=== PATIENT | male | born 1950 | race African-American/Black ===

== ENCOUNTER → 2019-02-12 11:04 | Outpatient (CLI) | payer MEDICARE, SELFPAY ==
--- NOTE | 2019-02-12 | CA_ITS ---
APPROVED REPORT Exam: Pharmacologic Technologist: checo riggs, Ht: 5 ft 10 in Wt: 230 lbs BSA: 2.21 m2 HR: 60 bpm BP: 136/63 mmHg Rhythm: SINUS BRADYCARDIA,RBBB,PVC,RAD Indications: CP, SOB Medical History Medical History: HTN, Hyperlipidemia Medications: Simvastatin,,,,, Carvedilol,,,,, TAMSULOSIN,,,,, Finasteride,,,,, MiNOxdil,,,,, Allergies: No known drug allergies Cardiac Risk Factors: HTN, Hyperlipidemia Stress Test Details Test: LEXISCAN HR Resting HR: 63 bpm Max Heart Rate (APMHR): 151 bpm Max HR Achieved: 79 bpm Target HR (85% APMHR): 128 bpm % of APMHR: 52 Recovery HR: 75 bpm BP Resting BP: 136.0/63.0 mmHg Max BP: 149.0/51.0 mmHg Recovery BP: 135.0/57.0 mmHg ECG Resting ECG: SINUS BRADYCARDIA,RBBB,PVC,RAD Clinical Exercise duration: 04:15 min Highest Stage Achieved: Stress ECG Conclusion DURING INFUSION OF LEXISCAN PATIENT HAD SOA,MALAISE. NO CHEST PAIN. RARE PVC. NO SIGNIFICANT ST-T CHANGES. UNREMARKABLE LEXISCAN STRESS. MYOVIEW IMAGES REPORTED SEPARATELY. Test Summary REST 03:22 . . 63 . 136/ 63 . . Stage 1 01:00 . . 78 . . . . Stage 2 01:00 . . 73 . 149/ 51 . . Stage 3 01:00 . . 72 . 123/ 45 . . Stage 4 01:00 . . 68 . . . . Stage 4 01:15 . . 69 . 128/ 53 . Stop exercise at 04:15 RECOVERY 01:00 . . 67 . . . . RECOVERY 02:00 . . 76 . . . . RECOVERY 03:00 . . 66 . 135/ 57 . . RECOVERY 04:00 . . 65 . 135/ 57 . . RECOVERY 05:00 . . 65 . 122/ 55 . . RECOVERY 05:35 . . 66 . 138/ 56 . . Electronically signed by : Dennis Hamlin, 02/17/2019 15:00:11
--- NOTE | 2019-02-12 11:10 | CA_ITS ---
[facility] RADIOLOGICAL CONSULTATION Patient Name : Aldo Wills X-RAY # : [id number] Physician: LATHA JARQUIN AGE: 68Y : 1950 00:00:00 ( M ) Exam : CA ECHO DOPPLER COMPLETE ACC # : [id number] Study Date : 02/12/2019 11:18:31 Patient Class : O FINAL REPORT CLINICAL DATA: FINDINGS: TRANSCRIBED REPORT EXAM: Comprehensive 2D, Doppler, and color-flow Echocardiogram Integration Lead: Josseline Mars CRT Ht: 5 ft 9 in Wt: 235lbs BSA: 2.21 BP: 147/64 mmHg Indications: RBBB, [place], CAD, Angina, HTN,SOB, HLD, CP 2D Dimensions LVOT 1.99 cm (M/F) 1.5-2.5 M-Mode Dimensions RVDd 2.97 cm (0.9-2.6) LVDd 6.17 cm (3.5-5.7) LVDs 3.70 cm (3.5-5.7) IVSd 1.64 cm (0.6-1.1) PWd 1.49 cm (0.6-1.1) EF (Teich) 69.70% FS 40.00% EDV (Teich) 191.90 mL ESV (Teich) 58.10 mL LV Diastology E/A Ratio 0.84 Pulm Vein d 0.00 cm/sec Mitral Valve MV A Velocity 102.00 (40-130 cm/s) Electronically signed by : IMPRESSION: Dictated by at Transcribed by at
--- NOTE | 2019-02-12 13:48 | NM_ITS ---
APPROVED REPORT Exam: Nuclear Stress Test Indication: Chest pain, HTN, High cholesterol, Family history Patient Location: Outpatient Stress Tech: Missy FLORES Tech:Natalie DoverMARLEY RT(R)(N) Ht: 5 ft 10 in Wt: 230 lbs HR: 60 bpm BP: 136/63 mmHg BSA: 2.21 m2 BMI: 32.9 History: Chest pain, HTN, High cholesterol, Family history Procedure: Patient received a 0.4 mg of intravenous Lexiscan, resting heart rate 60 bpm, resting blood pressure 136/63 mmHg, with Lexiscan maximum heart rate achived was 79 bpm which is % of the maximum predicted heart rate and blood pressure was 149/51 mmHg. With Lexiscan, patient denied any complaint of chest pain. Cardiac Stress and Resting SPECT Images: Cardiac Stress and Resting SPECT images were obtained using technetium 99m Myoview 32.7 mCi stress and 9.96 mCi at rest. EF 59% Diaphragmatic attenuation inferior wall with a small reversible defect in the infero-apical region suggesting ischemic change Conclusion: Normal EF 59% Diaphragmatic attenuation inferior wall with a small reversible defect in the infero-apical region suggesting ischemic change Electronically signed by : Rizwan Barrera MD 02/13/2019 09:46:11
--- NOTE | 2019-02-12 14:22 | HMH.ITSHM ---
Current Home Medications as stated by this patient Aldo Wills or security representative. [] tamsulosin simvastatin
== END ==
PROVIDERS: PCP Family Medicine; Visit Provider Urology
DX: E78.5 Hyperlipidemia, unspecified; I11.9 Hypertensive heart disease without heart failure; I50.30 Unspecified diastolic (congestive) heart failure; I65.29 Occlusion and stenosis of unspecified carotid artery; I25.10 Atherosclerotic heart disease of native coronary artery without angina pectoris; R07.9 Chest pain, unspecified
CPT/HCPCS: 78452; 93017; 93306; A9502; J2785

== ENCOUNTER → 2019-08-26 10:40 | Outpatient (CLI) | payer MEDICARE, SELFPAY ==
--- NOTE | 2019-08-26 10:41 | CA_ITS ---
APPROVED REPORT Pencil Inspector: BILL Laterality: Bilateral Study Quality: Good Indications: Carotid stenosis Risk Factors Hypertension: Hyperlipidemia Doppler Spectral Velocity Analysis ECA (R) 120.10/9.40 cm/s ECA (L) 123.20/9.40 cm/s dICA (R) 66.60/16.40 cm/s dICA (L) 38.30/9.70 cm/s Monique (R) 73.90/17.60 cm/s Moinque (L) 64.40/15.80 cm/s pICA (R) 74.50/16.40 cm/s pICA (L) 90.50/14.00 cm/s dCCA (R) 74.50/13.30 cm/s dCCA (L) 63.20/9.10 cm/s pCCA (R) 77.70/12.20 cm/s pCCA (L) 79.90/13.00 cm/s ICA/CCA 1.00 Vert (L) 43.10/7.30 cm/s ICA/CCA 1.43 Conclusion Study suggests 20-49% stenosis of the right internal cartoid artery worsened from the 07/30/17 study. Study suggests less than 20% stenosis of the left internal cartoid artery unchanged from the 07/30/17 study. Antegrade flow seen left verterbral artery. Right verterbral artery is non-visualized. Electronically signed by : Rizwan Barrera MD 08/26/2019 19:54:21
== END ==
PROVIDERS: PCP Family Medicine; Visit Provider Urology
DX: I11.0 Hypertensive heart disease with heart failure; I25.10 Atherosclerotic heart disease of native coronary artery without angina pectoris; I45.10 Unspecified right bundle-branch block; I50.32 Chronic diastolic (congestive) heart failure; I65.23 Occlusion and stenosis of bilateral carotid arteries; E78.49 Other hyperlipidemia
CPT/HCPCS: 93880

== ENCOUNTER 2020-01-07 08:20 | Day surgery (SDC) | payer MEDICARE, SELFPAY ==
[2020-01-07] VITALS (13 sets, daily range): BP systolic 108–180; BP diastolic 54–128; PULSE 50–64; RESP 16; TEMP 36.7; O2SAT 94–100; BMI 34.0
--- NOTE | 2020-01-07 | IR_ITS ---
APPROVED REPORT Patient Location: Outpatient Investigations Manager: MARLEY Luong RT (R) PROCEDURES Left heart catheterization Left ventriculogram Selective coronary angiogram INDICATION Abnormal Myoview, Angina pectoris Informed consent was obtained prior to the procedure. COMPLICATIONS None Estimated Blood Loss: less than 10ml TECHNIQUE One percent lidocaine used to anesthetize the right anterior aspect of the wrist. The right radial artery was accessed via the Seldinger technique. A 6 Syrian sheath was placed in the right radial artery. 2.5 mg of verapamil, 800 mcg of nitroglycerin, 1mg Lidocaine and 5000 U Heparin were given through the arterial sheath. The trap catheter was also used to perform left heart catheterization, left ventriculogram and selective coronary angiogram. At the end of the procedure the sheath was removed good hemostasis was achieved using Traclet band, patient was transferred to the postop holding area in stable condition. ANGIOGRAPHIC RESULTS The left main artery Normal The left anterior descending artery Has proximal and mid vessel mild 10% luminal irregularities The circumflex artery Large dominant mild proximal mid vessel 10% luminal irregularities The right coronary artery Nondominant normal The CORMIER ventriculogram reveals Normal 65% The left ventricular end-diastolic pressure 10 mmHg IMPRESSION [id number] coronary artery disease Normal ejection fraction Normal left ventricular end-diastolic pressure PLAN 1. Medical management 2. Valuation of noncardiac chest pain Electronically signed by : Dennis Hamlin, 01/07/2020 11:09:34
[2020-01-07 09:11] LABS: Basophils % 0.2 % (0.1-2.0); Eosinophils # 0.3 K/mm3 (0.0-0.4); Eosinophils % 3.7 % (0.1-12.0); Hematocrit 38.5 % (42.0-52.0); Hemoglobin 13.8 g/dL (14.1-18.0); Lymphocytes # 1.1 K/mm3 (0.7-4.5); Lymphocytes % 15.2 % (10-50); Mean Corpuscular Hemoglobin 31.9 pg (27.0-31.2); Mean Corpuscular Volume 88.7 fl (80-94); Mean Platelet Volume 8.4 fl (7.4-10.4); Monocytes # 0.5 K/mm3 (0.1-1.0); Monocytes % 6.9 % (1.7-9.3); Neutrophils # 5.4 K/mm3 (1.8-7.8); Neutrophils % 73.9 % (37.0-80.0); Platelet Count 144 K/mm3 (142-424); Red Blood Count 4.34 M/mm3 (4.60-6.20); Red Cell Distribution Width 14.3 % (11.5-17.5); White Blood Count 7.4 K/mm3 (4.8-10.8)
[2020-01-07 09:17] LABS: Anion Gap 11.2 mEq/L (5-15); Blood Urea Nitrogen 15 mg/dl (9-20); Calcium 9.5 mg/dl (8.4-10.2); Carbon Dioxide 32 mmol/L (22.0-30.0); Chloride 100 mmol/L (98-107); Creatinine Clearance Estimated 92 mL/min (50-200); Estimated Glomerular Filt Rate 66 ml/min (>60); GFR (African American) 80 ML/MIN (>60); Glucose 113 mg/dl (74-100); Potassium 4.2 mmoL/L (3.5-5.1); Sodium 139 mmol/L (136-145)
[2020-01-07 11:46] LABS: Coronavirus 19 IgG Antibody Negative (Negative); Coronavirus 19 IgM Antibody Negative (Negative)
== END 2020-01-07 14:07 | disposition home or self-care (01) ==
LOC: CATHLAB 08:21
PROVIDERS: PCP Family Medicine; Visit Provider Internal Medicine
DX: I25.118 Atherosclerotic heart disease of native coronary artery with other forms of angina pectoris (principal); R07.9 Chest pain, unspecified; I11.0 Hypertensive heart disease with heart failure; I50.32 Chronic diastolic (congestive) heart failure; Z79.899 Other long term (current) drug therapy; I27.20 Pulmonary hypertension, unspecified; I34.0 Nonrheumatic mitral (valve) insufficiency; E78.5 Hyperlipidemia, unspecified; I65.23 Occlusion and stenosis of bilateral carotid arteries
CPT/HCPCS: 80048; 85025; 86328; 93458; 99152; C1725; C1769; J1644; Q9967

== ENCOUNTER → 2020-07-20 08:37 | Outpatient (CLI) | payer MEDICARE, SELFPAY ==
--- NOTE | 2020-07-20 08:40 | CA_ITS ---
APPROVED REPORT EXAM: Comprehensive 2D, Doppler, and color-flow Echocardiogram Classics Professor: Candelaria Schmidt RVT Ht: 5 ft 9 in Wt: 235lbs BSA: 2.21 BP: 140/60 mmHg Indications: SOA,CAD,RBBB,HTN,HLD,PERICARDIAL EFFUSION 2D Dimensions LVOT 2.07 cm (M/F) 1.5-2.5 LA Volume 40.60 mL LA Volume Index 18.37 mL/m2 (M/F) 16-34 M-Mode Dimensions RVDd 3.24 cm (0.9-2.6) LA Diam 4.85 cm (1.9-4.0) LVDd 5.86 cm (3.5-5.7) Ao Diam 3.11 cm (2.0-3.7) LVDs 3.24 cm (3.5-5.7) IVSd 1.83 cm (0.6-1.1) PWd 1.69 cm (0.6-1.1) EF (Teich) 75.20% FS 44.70% EDV (Teich) 170.50 mL TAPSE 1.60 (<1.7) ESV (Teich) 42.20 mL LV Diastology E Decel Time 203.00 (160-240 msec) E/A Ratio 0.9 MED E' 17.70 (< 7 cm/sec) E'/MED E' Ratio 5.15 (>14) LAT E' 7.60 (<10 cm/sec) E/LAT E' Ratio 11.99 (>14) Mitral Valve MV E Max Fidel. 91.00 (40-130 cm/s) MV A Velocity 96.00 (40-130 cm/s) E/A Ratio 0.95 MV Decel. Time 203.00 (160-240 ms) MV PHT 60.00 ms Pulmonary Valve PV Peak Velocity 124.00 (50-150 cm/s) Tricuspid Valve TR P. Velocity 337.00 cm/s RAP Estimate 10.00 mmHg RVSP 55.50 mmHg Left Ventricle Left atrium is mildly enlarged, left ventricle is normal size, mild concentric left ventricular hypertrophy, visually estimated ejection fraction 55% with no regional wall motion abnormality, grade 1 diastolic dysfunction seen without tissue Doppler evidence of raise left atrial pressure. Right Ventricle Right atrium and right ventricle are mildly enlarged with normal contractility. Aortic Valve Aortic valve is minimally thickened and fibrosed, there is no aortic stenosis, there is trace aortic insufficiency. Mitral Valve Mitral valve grossly normal, there is trace mitral regurgitation. Tricuspid Valve Tricuspid valve grossly normal, there is trace tricuspid regurgitation, calculated right ventricular systolic pressure is 55 mmHg assuming right atrial pressure 10 mmHg. Pulmonic Valve Pulmonic valve is poorly visualized. Great Vessels Aortic root is normal size. Pericardium Small pericardial effusion noted without Doppler evidence of raise intrapericardial pressure. Conclusion 1. Biatrial enlargement, normal left ventricular size, mild concentric left ventricular hypertrophy, visually estimated ejection fraction 55% with no regional wall motion abnormality, grade 1 diastolic dysfunction seen without tissue Doppler evidence of raise left atrial pressure. 2. Mildly enlarged right ventricle with normal contractility. 3. Trace aortic, mild mitral and tricuspid regurgitation, calculated right ventricular systolic pressure is 55 mmHg 4. Small pericardial effusion noted without Doppler evidence of raise intrapericardial pressure. Electronically signed by : Irving So, 07/21/2020 15:06:21
== END ==
PROVIDERS: PCP Family Medicine; Visit Provider Nurse Practitioner Family
DX: I35.1 Nonrheumatic aortic (valve) insufficiency (principal)
CPT/HCPCS: 93306

== ENCOUNTER → 2020-09-22 07:45 | Outpatient (CLI) | payer MEDICARE, SELFPAY ==
--- NOTE | 2020-09-22 07:46 | CA_ITS ---
APPROVED REPORT Header Dock: Candelaria Schmidt RVT Laterality: Bilateral Study Quality: Good Indications: [place] Risk Factors Hypertension: Hyperlipidemia Doppler Spectral Velocity Analysis ECA (R) 135.40/19.70 cm/s ECA (L) 144.50/19.30 cm/s dICA (R) 88.00/27.60 cm/s dICA (L) 71.10/21.70 cm/s Monique (R) 76.40/22.50 cm/s Monique (L) 80.10/21.70 cm/s pICA (R) 52.00/14.80 cm/s pICA (L) 106.90/16.40 cm/s dCCA (R) 82.30/19.50 cm/s dCCA (L) 83.80/15.00 cm/s pCCA (R) 105.90/19.30 cm/s pCCA (L) 104.80/21.70 cm/s Vert (R) 48.80/10.30 cm/s Vert (L) 36.90/9.10 cm/s ICA/CCA 1.07 ICA/CCA 1.28 Findings Study suggests 20-49% stenosis of the right internal cartoid artery. Study suggests 20-49% stenosis of the left internal cartoid artery. Antegrade flow seen bilateral vertebral arteries. Conclusion Study suggests 20-49% stenosis of the right internal cartoid artery. Study suggests 20-49% stenosis of the left internal cartoid artery. Antegrade flow seen bilateral vertebral arteries. Electronically signed by : Rizwan Barrera MD 09/22/2020 15:14:10
--- NOTE | 2020-09-22 07:46 | CA_ITS ---
APPROVED REPORT Manager Documentation: Candelaria Schmidt RVT Study Quality: Good Indications: HTN Risk Factors Hypertension Hyperlipidemia CAD Renal Artery Doppler Origin (R) 176.4/ cm/sec Mid (R) 178.1/ cm/sec Distal (R) 199.3/ cm/sec Renal Aorta Ratio (R) 1.47 Segmental A. (R) 50.4/13.1 cm/sec RI: 0.74 Segmental A. Sup (R) 50.4/13.1 cm/sec Segmental A. Mid (R) 37.4/10.2 cm/sec Segmental A. Inf (R) 22.7/9.1 cm/sec Origin (L) 119.9/ cm/sec Mid (L) 144.7/ cm/sec Distal (L) 135.8/ cm/sec Renal Aorta Ratio (L) 1.07 Segmental A. (L) 51.1/12.1 cm/sec RI: 0.76 Segmental A. Sup (L) 51.1/12.1 cm/sec Segmental A. Mid (L) 45.7/8.1 cm/sec Segmental A. Inf (L) 39.0/9.4 cm/sec Renal Measurements Kidney Size (R) 10.7x7.5 cm Cortical Thickness (R) 1.3 cm Kidney Size (L) 11.2x7.1 cm Cortical Thickness (L) 1.6 cm Findings Study suggests no evidence of stenosis of the bilateral renal arteries. There is a 1.8 X 1.7 cm cyst mid pole right kidney. There is a 2.0 X 1.8 cm hypoechoic solid lesion seen lower pole right kidney, futher testing needed. Conclusion Study suggests no evidence of stenosis of the bilateral renal arteries. There is a 1.8 X 1.7 cm cyst mid pole right kidney. There is a 2.0 X 1.8 cm hypoechoic solid lesion seen upper pole right kidney, futher testing needed. Suggest CT without and with contrast with renal protocol Electronically signed by : Rizwan Barrera MD 09/22/2020 15:18:38
== END ==
PROVIDERS: PCP Family Medicine; Visit Provider Physician Assistant
DX: E78.2 Mixed hyperlipidemia (principal); I25.118 Atherosclerotic heart disease of native coronary artery with other forms of angina pectoris; I27.20 Pulmonary hypertension, unspecified; I34.0 Nonrheumatic mitral (valve) insufficiency; I45.10 Unspecified right bundle-branch block; I50.32 Chronic diastolic (congestive) heart failure; I65.23 Occlusion and stenosis of bilateral carotid arteries; I10 Essential (primary) hypertension
CPT/HCPCS: 93880; 93976

== ENCOUNTER → 2020-10-20 07:57 | Outpatient (CLI) | payer MEDICARE, SELFPAY | PROVIDERS: PCP Family Medicine; Visit Provider Physician Assistant | DX: I70.1 Atherosclerosis of renal artery (principal) | CPT/HCPCS: 93976 ==

== ENCOUNTER → 2022-01-19 09:59 | Outpatient (CLI) | payer MEDICARE, SELFPAY ==
--- NOTE | 2022-01-19 10:00 | CA_ITS ---
APPROVED REPORT EXAM: Comprehensive 2D, Doppler, and color-flow Echocardiogram Coater Carbon Paper: Candelaria Schmidt RVT Ht: 5 ft 9 in Wt: 245lbs BSA: 2.25 BP: 132/66 mmHg Indications: CP,PERICARDIAL EFFUSION,HTN,HLD 2D Dimensions LVOT 2.29 cm (M/F) 1.5-2.5 LA Volume 38.60 mL LA Volume Index 17.15 mL/m2 (M/F) 16-34 M-Mode Dimensions RVDd 2.91 cm (0.9-2.6) LA Diam 5.11 cm (1.9-4.0) LVDd 5.36 cm (3.5-5.7) Ao Diam 3.18 cm (2.0-3.7) LVDs 3.44 cm (3.5-5.7) IVSd 2.06 cm (0.6-1.1) PWd 1.43 cm (0.6-1.1) EF (Teich) 64.90% FS 35.80% EDV (Teich) 138.90 mL TAPSE 2.68 (<1.7) ESV (Teich) 48.80 mL LV Diastology E Decel Time 220.00 (160-240 msec) E/A Ratio 0.8 MED E' 14.60 (< 7 cm/sec) E'/MED E' Ratio 6.05 (>14) LAT E' 7.30 (<10 cm/sec) E/LAT E' Ratio 12.11 (>14) Aortic Valve AO Peak GR. 10.80 mmHg Mitral Valve MV E Max Fidel. 88.00 (40-130 cm/s) MV A Velocity 107.00 (40-130 cm/s) E/A Ratio 0.83 MV Decel. Time 220.00 (160-240 ms) MV PHT 64.00 ms Pulmonary Valve PV Peak Velocity 140.00 (50-150 cm/s) Tricuspid Valve TR P. Velocity 445.00 cm/s RAP Estimate 10.00 mmHg RVSP 89.20 mmHg Left Ventricle Left atrium is mildly enlarged, left ventricle is normal size mild concentric left ventricular hypertrophy, estimated ejection fraction 55 to 60% with no regional wall motion abnormality, grade 1 diastolic dysfunction seen without tissue Doppler evidence of raise left atrial pressure. Right Ventricle Right atrium and right ventricle are mildly enlarged with normal contractility. Aortic Valve Aortic valve is minimally thickened and fibrosed there is no aortic stenosis or aortic insufficiency. Mitral Valve Mitral valve is grossly normal, there is trace mitral regurgitation. Tricuspid Valve Tricuspid grossly normal, there is trace tricuspid regurgitation, tricuspid regurgitation jet velocity is inadequate for calculation of the right ventricular systolic pressure. Pulmonic Valve Pulmonic valve is poorly visualized. Great Vessels Aortic root is normal size. Inferior vena cava is normal size with normal inspiratory collapse Pericardium Small pericardial effusion noted, without Doppler evidence of raised intrapericardial pressure or tamponade physiology. Conclusion 1. Mild biatrial enlargement, normal left ventricular size, mild concentric left ventricular hypertrophy, estimated ejection fraction 55 to 60% with no regional wall motion abnormality, grade 1 diastolic dysfunction seen without tissue Doppler evidence of raise left atrial pressure. 2. Mildly enlarged right ventricle with normal contractility. 3. Trace mitral and tricuspid regurgitation. 4. Small pericardial effusion noted without Doppler evidence of raised intrapericardial pressure or tamponade physiology. 5. Inferior vena cava is normal size with normal inspiratory collapse. Electronically signed by : Irving So MD 01/19/2022 13:37:43
--- NOTE | 2022-01-19 10:00 | CA_ITS ---
FINAL REPORT CLINICAL HISTORY: [place],HTN,HLD FINDINGS: RIGHT CAROTID: CCA PSV 60 cm/sec ICA PSV 99 cm/sec ICA/CCA PSV ratio. 1.64 Comments: Mild plaque disease is noted. LEFTCAROTID: CCA PSV 77 cm/sec ICA PSV 127 cm/sec ICA/CCA PSV ratio 1.65 Comments: Mild plaque disease is noted. Antegrade flow is seen within the vertebral arteries. IMPRESSION: Less than 50% stenosis bilaterally. Mild plaque disease. Reviewed, Interpreted and Dictated by Nathan Ro MD Transcribed by Rosetta Mccarthy Authenticated and [facility]
[2022-01-19 12:17] LABS: Chloride 105 mmol/L (98-107); Potassium 4.2 mmoL/L (3.5-5.1); Sodium 144 mmol/L (136-145)
[2022-01-19 12:20] LABS: Anion Gap 13.2 mEq/L (5-15); Blood Urea Nitrogen 20 mg/dl (9-20); Carbon Dioxide 30 mmol/L (22.0-30.0); Estimated Glomerular Filt Rate 60 ml/min (>60); GFR (African American) 72 ML/MIN (>60)
[2022-01-19 12:21] LABS: Calcium 9.1 mg/dl (8.4-10.2); Glucose 110 mg/dl (74-100)
== END ==
PROVIDERS: PCP Family Medicine; Visit Provider Nurse Practitioner Family
DX: E78.2 Mixed hyperlipidemia (principal); I11.0 Hypertensive heart disease with heart failure; I25.118 Atherosclerotic heart disease of native coronary artery with other forms of angina pectoris; I27.20 Pulmonary hypertension, unspecified; I35.1 Nonrheumatic aortic (valve) insufficiency; I45.10 Unspecified right bundle-branch block; I50.32 Chronic diastolic (congestive) heart failure; I65.23 Occlusion and stenosis of bilateral carotid arteries; N18.30 Chronic kidney disease, stage 3 unspecified; R07.9 Chest pain, unspecified
CPT/HCPCS: 36415; 80048; 93306; 93880

== ENCOUNTER → 2022-05-08 13:53 | Outpatient (CLI) | payer MEDICARE, SELFPAY ==
--- NOTE | 2022-05-08 14:06 | XR_ITS ---
FINAL REPORT CLINICAL HISTORY: dyspnea, soa x 1 month FINDINGS: PA and lateral views of the chest are obtained. There is no prior exam for comparison. There is cardiomegaly. The lungs are clear. There is no pleural effusion, pneumothorax, or acute osseous abnormality. IMPRESSION: No radiographic evidence of acute cardiac or pulmonary disease. Reviewed, Interpreted and Dictated by Jeannette Lopez MD Transcribed by Jimena Mendoza Authenticated and [facility]
== END ==
PROVIDERS: PCP Family Medicine; Visit Provider Physician Assistant
DX: E78.2 Mixed hyperlipidemia (principal); I11.0 Hypertensive heart disease with heart failure; I25.118 Atherosclerotic heart disease of native coronary artery with other forms of angina pectoris; I27.20 Pulmonary hypertension, unspecified; I34.0 Nonrheumatic mitral (valve) insufficiency; I45.10 Unspecified right bundle-branch block; I50.32 Chronic diastolic (congestive) heart failure; I65.23 Occlusion and stenosis of bilateral carotid arteries; R06.00 Dyspnea, unspecified
CPT/HCPCS: 71046

== ENCOUNTER 2022-07-11 17:01 | Inpatient (IN) | payer MEDICARE, SELFPAY ==
--- NOTE | 2022-07-11 17:05 | PC.NURSE ---
patient arrived by ambulance stretcher from [place]
--- NOTE | 2022-07-11 17:20 | EXP.HP ---
History of Present Illness *Admission Date: 07/11/22 *Reason for visit:: Nausea and vomiting *History of present illness: Mr. Wills is a 71-year-old gentleman who initially presented to [place] ER earlier today after waking up this morning with vomiting at 3 AM. Said his stomach has felt like it was full and tight, with worsening distention over the past few days. Denies any blood in his vomit. Last bowel movement yesterday. No fever. Has had some shortness of breath but no cough or chest pain. Shortness of breath has been going on for the past 1 to 2 weeks. On presentation to the ER in [place], labs were obtained and imaging was performed. Patient was noted to have stable labs with baseline kidney function and creatinine 1.2. Imaging of his abdomen showing dilated small bowel loops on KUB, concerning for ileus. CT of abdomen reportedly showing concern for small bowel obstruction. [facility] [place] had no beds, consulted [facility] for transfer for further care. Patient accepted as transfer. On arrival to the floor he states he has never had surgery on his abdomen. Denies any current pain with palpation of his abdomen. Does feel somewhat short of breath and is requiring 2 L oxygen at this time which is new for him. Attempts were made to place NG at [facility] [place], placed twice but intolerant of NG due to gag reflex. NG removed. At this time denies nausea, fever, confusion, belly pain. [facility] Disclaimer: The information contained in this section may have been updated after the patient was seen, as this information can be updated by other users. Medical History (Updated 07/11/22 @ 18:43 by Mejia Jackson MD) Aortic regurgitation BPH (benign prostatic hyperplasia) CAD (coronary artery disease) Carotid artery stenosis Chest pain CHF (congestive heart failure) Chronic kidney disease, stage 3 Diastolic heart failure (~01/02/16) Dyspnea HLD (hyperlipidemia) Hypertensive heart disease Mitral regurgitation Pulmonary HTN Right bundle branch block (~04/18/17) Surgical History (Updated 07/11/22 @ 17:32 by Ching Nieto, MILY) H/O rotator cuff surgery History of cardiac cath History of prostate surgery Social History (Updated 07/11/22 @ 17:32 by Ching Nieto, MILY) Smoking Status: Never smoker alcohol intake: never substance use type: denies use current occupational status: retired Travel in the last 8 weeks: None household members: spouse housing: house current occupational exposures/hazards: No Review of Systems Review of Systems Review of systems (narrative): 14 point review of systems performed, pertinent positives and negatives as per HPI Meds Home Medications and Allergies Home Medications Medication Instructions Recorded Confirmed Type aspirin 81 mg tablet,delayed 81 mg PO DAILY HEART HEALTH 07/19/17 07/11/22 History release (Aspir-Low) tamsulosin 0.4 mg capsule (Flomax) 0.4 mg PO DAILY PRN prostate 07/22/17 07/11/22 History finasteride 5 mg tablet 5 mg PO DAILY urinary 08/26/19 07/11/22 History carvedilol 25 mg tablet 25 mg PO BID BP 07/11/22 07/11/22 History furosemide 20 mg tablet (Lasix) 20 mg PO DAILY CHF 07/11/22 07/11/22 History isosorbide mononitrate 60 mg 60 mg PO DAILY BP 07/11/22 07/11/22 History tablet,extended release 24 hr lisinopril 40 mg tablet 40 mg PO BID BP 07/11/22 07/11/22 History minoxidil 10 mg tablet 10 mg PO BID BPH 07/11/22 07/11/22 History simvastatin 40 mg tablet 40 mg PO HS Cholesterol 07/11/22 07/11/22 History New Prescriptions to Start Prescriptions: Allergies Allergy/AdvReac Type Severity Reaction Status Date / Time No Known Allergies Allergy Verified 05/08/22 13:32 Exam Constitutional Constitutional: no acute distress and obese *Routine HEENT Exam Head: Present normocephalic and atraumatic Eye: Present EOMI and PERRL ENT: Present mucous membranes moist *Routine Neck Exam Neck: Present supple; Absent JVD R
[2022-07-11 17:23] VITALS: BP 162/102; PULSE 99; RESP 20; TEMP 36.9; O2SAT 84; BMI 32.4
[2022-07-11 17:25] VITALS: O2SAT 96
[2022-07-11 17:25] LABS: Coronavirus 19, PCR Not Detected (NotDetected); Influenza A, PCR Not Detected (NotDetected); Influenza B, PCR Not Detected (NotDetected)
--- NOTE | 2022-07-11 17:44 | PC.NURSE ---
spoke with Dr. Maciel about patient
[2022-07-11 17:51] LABS: Basophils % 0.4 % (0.1-2.0); Chloride 105 mmol/L (98-107); Eosinophils % 0.6 % (0.1-12.0); Hematocrit 39.8 % (42.0-52.0); Hemoglobin 13.5 g/dL (14.1-18.0); Lymphocytes # 0.5 K/mm3 (0.7-4.5); Lymphocytes % 7.4 % (10-50); Mean Corpuscular HGB Conc 33.8 g/dL (31.8-35.4); Mean Corpuscular Hemoglobin 30.4 pg (27.0-31.2); Monocytes # 0.5 K/mm3 (0.1-1.0); Monocytes % 6.8 % (1.7-9.3); Neutrophils % 84.8 % (37.0-80.0); Platelet Count 124 K/mm3 (142-424); Red Blood Count 4.42 M/mm3 (4.60-6.20); Red Cell Distribution Width 15.3 % (11.5-17.5); Sodium 142 mmol/L (136-145)
[2022-07-11 17:52] LABS: Potassium 3.9 mmoL/L (3.5-5.1)
[2022-07-11 17:54] LABS: Alanine Aminotransferase 23 U/L (12-78); Albumin Level 4.4 g/dl (3.5-5.0); Albumin/Globulin Ratio 1.4 (1.1-1.8); Alkaline Phosphatase 77 U/L (38-126); Anion Gap 13.9 mEq/L (5-15); Aspartate Amino Transferase 34 U/L (17-59); Bilirubin,Total 1.9 mg/dl (0.2-1.3); Blood Urea Nitrogen 20 mg/dl (9-20); Calcium 8.5 mg/dl (8.4-10.2); Carbon Dioxide 27 mmol/L (22.0-30.0); Creatinine Clearance Estimated 81 mL/min (50-200); Estimated Glomerular Filt Rate 60 ml/min (>60); GFR (African American) 72 ML/MIN (>60); Globulin 3.1 g/dL (1.3-3.2); Glucose 96 mg/dl (74-100); Total Protein,Serum 7.5 g/dl (6.3-8.2)
[2022-07-11 17:55] LABS: Lactic Acid 1.1 mmol/L (0.7-2.1); Magnesium 2.1 mg/dl (1.6-2.3)
[2022-07-11 18:06] LABS: NT Pro Brain Natriuretic Pep. 1260 pg/mL (0-125)
[2022-07-11 18:50] VITALS: PULSE 90
--- NOTE | 2022-07-11 18:51 | ECG_ITS ---
APPROVED REPORT Exam: Resting ECG HR:86 bpm ECG Measurements Heart Rate 86 AXES AK 203 P 63 QRSd 168 QRS -46 QT 381 T 5 QTc 424 Conclusion SINUS RHYTHM LEFT AXIS DEVIATION [QRS AXIS < -30] RIGHT BUNDLE BRANCH BLOCK [120+ ms QRS DURATION, UPRIGHT V1, 40+ ms S IN I/aVL/V4/V5/V6] ABNORMAL ECG UNCONFIRMED REPORT Electronically signed by : Titi Grover MD 07/12/2022 16:54:50
[2022-07-11 19:54] VITALS: BP 151/73; PULSE 87; RESP 20; TEMP 37.1; O2SAT 97
[2022-07-11 20:00] VITALS: O2SAT 97
[2022-07-11 21:37] LABS: Troponin I 0.28 ng/ml (0.00-0.034)
[2022-07-11 22:06] VITALS: PULSE 80
--- NOTE | 2022-07-11 22:39 | PC.NURSE ---
AT 2134 LAB NOTIFIED ME OF CRITICAL TROPONIN OF 0.28. PATY Waller DNP NOTIFIED.
[2022-07-12] VITALS (13 sets, daily range): BP systolic 96–150; BP diastolic 50–75; PULSE 50–78; RESP 17–18; TEMP 36.5–37.7; O2SAT 96–100; BMI 31.3
[2022-07-12 00:16] LABS: Troponin I 0.32 ng/ml (0.00-0.034)
--- NOTE | 2022-07-12 00:17 | PC.NURSE ---
AT OO15 LAB CALLS CRITICAL TROPONIN 0.32. PATY Waller DNP NOTIFIED.
[2022-07-12 01:19] LABS: Troponin I 0.32 ng/ml (0.00-0.034)
--- NOTE | 2022-07-12 01:51 | PC.NURSE ---
AT 0120 LAB CALLED CRITICAL TROPONIN 0.32, NO CHANGE FROM LAST. PATY Hernandez DNP NOTIFIED.
--- NOTE | 2022-07-12 05:19 | PC.NURSE ---
PATIENT HAS BEEN NPO FOR CARDIOLOGY CONSULT SINCE [place].. DENIES PAIN. REPORTS SOA WITH MINIMAL EXERTION. SR/BBB/PACs/PVCs NOTED ON TELE. TROPONINS ELEVATED. TO HAVE ECHOCARDIOGRAM THIS AM. 97% ON 02 AT 2LNC. LOW GRADE TEMP 99.1. MILD EDEMA LOWER LEGS, NON PITTING.
--- NOTE | 2022-07-12 06:00 | CA_ITS ---
APPROVED REPORT EXAM: Comprehensive 2D, Doppler, and color-flow Echocardiogram Visitor Services Representative: Vanda Kwon RDCS Ht: 5 ft 10 in Wt: 219lbs BSA: 2.17 BP: 124/64 mmHg Indications: CHF,HTN,HLP,CAD, PERICARDIAL EFFUSION 2D Dimensions LVOT 2.18 cm (M/F) 1.5-2.5 M-Mode Dimensions RVDd 2.91 cm (0.9-2.6) LA Diam 4.57 cm (1.9-4.0) LVDd 4.20 cm (3.5-5.7) Ao Diam 3.72 cm (2.0-3.7) LVDs 2.33 cm (3.5-5.7) IVSd 1.25 cm (0.6-1.1) PWd 1.07 cm (0.6-1.1) EF (Teich) 76.20% FS 44.50% EDV (Teich) 78.60 mL TAPSE 2.42 (<1.7) ESV (Teich) 18.70 mL LV Diastology E Decel Time 200.00 (160-240 msec) E/A Ratio 1.0 MED E' 8.80 (< 7 cm/sec) E'/MED E' Ratio 10.30 (>14) LAT E' 8.10 (<10 cm/sec) E/LAT E' Ratio 11.19 (>14) Aortic Valve LVOT Max 133.00 (70-110 cm/s) LVOT VTI 28.30 cm AoV Peak Fidel. 170.00 (50-130 cm/s) AO Peak GR. 11.60 mmHg AO Mean GR. 5.70 (<5 mmHg) AO VTI 31.78 (18-25 cm) LUCY (VTI) 3.32 (2.5-4.5 cm2) Mitral Valve MV E Max Fidel. 91.00 (40-130 cm/s) MV A Velocity 93.00 (40-130 cm/s) E/A Ratio 0.97 MV Decel. Time 200.00 (160-240 ms) MV PHT 59.00 ms Left Ventricle Left atrium is mildly enlarged, left ventricle is normal size, mild concentric left ventricular hypertrophy, estimated ejection fraction 55% with no regional wall motion abnormality, diastolic parameters are inconclusive. Right Ventricle Right atrium and right ventricular mildly enlarged with normal contractility. Aortic Valve Aortic valve is minimally thickened and fibrosed there is no aortic stenosis aortic insufficiency. Mitral Valve Mitral valve is grossly normal, there is trace mitral regurgitation. Tricuspid Valve Tricuspid valve grossly normal, there is trace tricuspid regurgitation, tricuspid regurgitation jet velocity is inadequate for calculation of the right ventricular systolic pressure. Pulmonic Valve Pulmonic valve is poorly visualized. Great Vessels Aortic root is normal size. Inferior vena cava is poorly visualized. Pericardium There is small to moderate size pericardial effusion noted without tamponade physiology. Conclusion 1. Biatrial enlargement, normal left ventricular size mild concentric left ventricular hypertrophy, estimated ejection fraction 55% with no regional wall motion abnormality, diastolic parameters are inconclusive. 2. Mildly enlarged right ventricle with normal contractility. 3. Small to moderate-sized pericardial effusion without Doppler evidence of tamponade physiology. 4. Trace mitral and tricuspid regurgitation. 5. Inferior vena cava is poorly visualized. Electronically signed by : Irving So MD 07/13/2022 17:12:41
[2022-07-12 06:27] LABS: Basophils % 0.3 % (0.1-2.0); Eosinophils % 0.6 % (0.1-12.0); Hematocrit 39.4 % (42.0-52.0); Hemoglobin 12.9 g/dL (14.1-18.0); Lymphocytes # 0.5 K/mm3 (0.7-4.5); Lymphocytes % 10.1 % (10-50); Mean Corpuscular HGB Conc 32.7 g/dL (31.8-35.4); Mean Corpuscular Hemoglobin 29.7 pg (27.0-31.2); Mean Corpuscular Volume 90.8 fl (80-94); Monocytes # 0.5 K/mm3 (0.1-1.0); Monocytes % 10.3 % (1.7-9.3); Neutrophils % 78.6 % (37.0-80.0); Platelet Count 112 K/mm3 (142-424); Red Blood Count 4.34 M/mm3 (4.60-6.20); Red Cell Distribution Width 15.3 % (11.5-17.5); White Blood Count 5.1 K/mm3 (4.8-10.8)
[2022-07-12 06:38] LABS: Troponin I 0.22 ng/ml (0.00-0.034)
[2022-07-12 06:47] LABS: Alanine Aminotransferase 18 U/L (12-78); Albumin Level 3.8 g/dl (3.5-5.0); Albumin/Globulin Ratio 1.5 (1.1-1.8); Alkaline Phosphatase 66 U/L (38-126); Anion Gap 12.5 mEq/L (5-15); Aspartate Amino Transferase 31 U/L (17-59); Bilirubin,Total 1.7 mg/dl (0.2-1.3); Blood Urea Nitrogen 20 mg/dl (9-20); Calcium 8.4 mg/dl (8.4-10.2); Carbon Dioxide 27 mmol/L (22.0-30.0); Chloride 104 mmol/L (98-107); Creatinine Clearance Estimated 78 mL/min (50-200); Estimated Glomerular Filt Rate 60 ml/min (>60); GFR (African American) 72 ML/MIN (>60); Globulin 2.6 g/dL (1.3-3.2); Glucose 79 mg/dl (74-100); Potassium 3.5 mmoL/L (3.5-5.1); Sodium 140 mmol/L (136-145); Total Protein,Serum 6.4 g/dl (6.3-8.2)
--- NOTE | 2022-07-12 07:01 | PC.NURSE ---
AT 0637 LAB CALLED WITH CRITICAL TROPONIN 0.22. RESULTS CALLED TO PATY Waller DNP.
--- NOTE | 2022-07-12 07:12 | ECG_ITS ---
APPROVED REPORT Exam: Resting ECG HR:62 bpm ECG Measurements Heart Rate 62 AXES WI 206 P 56 QRSd 174 QRS -47 QT 403 T -15 QTc 408 Conclusion SINUS RHYTHM LEFT AXIS DEVIATION [QRS AXIS < -30] RIGHT BUNDLE BRANCH BLOCK [120+ ms QRS DURATION, UPRIGHT V1, 40+ ms S IN I/aVL/V4/V5/V6] ABNORMAL ECG UNCONFIRMED REPORT Electronically signed by : Titi Grover MD 07/12/2022 16:43:47
--- NOTE | 2022-07-12 07:24 | HMH.PHAINT1 ---
Pharmacy Intervention Comments: Reconciled patient's home medication list using pharmacy fill records and patient interview.
--- NOTE | 2022-07-12 09:35 | EXP.CARD.CON ---
History of Present Illness History of Present Illness Consult date: 07/12/22 Requesting physician: Mejia Jackson Consult reason: shortness of breath Chief complaint: SOA History of present illness: This is a 71-year-old black gentleman who presented to the emergency department at [facility] for shortness of breath, abdominal bloating, nausea and vomiting. The patient states that he has been having progressively worsening shortness of breath and feeling bloated in his abdomen. Then yesterday morning he woke up around 3 AM with nausea and vomiting. He states that his abdominal bloating was worse so he went to the emergency department. [facility] was concerned with a small bowel obstruction but they had no beds available at their facility so the patient was transferred here to [facility]. The patient did have imaging done at [facility] which showed this concern for the small bowel obstruction. The imaging also showed that the patient had a pericardial effusion. The patient did have a CT in May 2022 which showed a moderate pericardial effusion. Repeat echocardiogram will be obtained here. He denies any chest pain or pressure. He states he has been more short of breath the last few weeks and it continues to progressively worsen. He denies any lower extremity edema. He denies any fever, chills. He also denies any orthopnea or PND. When I walked in the room the patient is lying flat. He is on 2 L nasal cannula which is new for him. He reports his nausea and vomiting have resolved. He denies any abdominal pain. [facility] Disclaimer: The information contained in this section may have been updated after the patient was seen, as this information can be updated by other users. Medical History (Updated 07/12/22 @ 09:41 by Marlene Salvador APRN) Aortic regurgitation BPH (benign prostatic hyperplasia) CAD (coronary artery disease) Carotid artery stenosis Chest pain CHF (congestive heart failure) Chronic kidney disease, stage 3 Diastolic heart failure (~01/02/16) Dyspnea Elevated troponin HLD (hyperlipidemia) Hypertensive heart disease Mitral regurgitation Pericardial effusion Pulmonary HTN Right bundle branch block (~04/18/17) Shortness of Breath Surgical History (Updated 07/11/22 @ 17:32 by Ching Nieto, RN) H/O rotator cuff surgery History of cardiac cath History of prostate surgery Social History (Updated 07/11/22 @ 17:32 by Ching Nieto RN) Smoking Status: Never smoker alcohol intake: never substance use type: denies use current occupational status: retired Travel in the last 8 weeks: None household members: spouse housing: house current occupational exposures/hazards: No Review of Systems Review of Systems Review of systems:: pertinent systems reviewed and negative unless documented below Constitutional Constitutional: Reports system reviewed and no additional complaints, except as documented and Reports lethargy Eyes Eyes: Reports system reviewed and no additional complaints, except as documented ENT Ears, Nose, Mouth, and Throat: Reports system reviewed and no additional complaints, except as documented *Cardiovascular Cardiovascular: Reports system reviewed and no additional complaints, except as documented, Denies chest pain, Reports dyspnea and Reports dyspnea on exertion *Respiratory Respiratory: Reports system reviewed and no additional complaints, except as documented, Reports dyspnea and Reports dyspnea on exertion *Gastrointestinal Gastrointestinal: Reports system reviewed and no additional complaints, except as documented, Denies abdominal pain, Reports nausea and Reports vomiting Comments: Abdominal bloating *Genitourinary Genitourinary: Reports system reviewed and no additional complaints, except as documented *Musculoskeletal Musculoskeletal: Reports system reviewed and no additional complaints, except as documented Integumentary/Breasts
--- NOTE | 2022-07-12 13:41 | EXP.ACUTE.PN ---
Subjective *Date: 07/12/22 *Time: 13:41 Interval history: Patient did well overnight. Continues to require 2 L nasal cannula oxygen. No nausea, vomiting. Passing gas. Denies any abdominal pain. Diuresed well with -3 L overnight after 1 dose of 40 mg IV Lasix. Cardiology to see patient today. Questions answered on rounds. Medical Exam Vital signs and Labs for Last 24 Hours: Vital Signs Temp Pulse Pulse Resp BP Pulse Ox 07/12/22 11:03 98.8 F 58 L 17 113/65 97 07/12/22 08:00 70 07/12/22 07:21 98.3 F 64 17 143/75 H 97 07/12/22 04:07 67 07/12/22 04:00 99.1 F 69 18 125/59 L 97 07/12/22 04:14 67 07/12/22 00:07 70 07/12/22 00:00 99.9 F H 78 18 139/52 L 96 07/11/22 22:06 80 07/11/22 20:00 97 07/11/22 19:54 98.8 F 87 20 151/73 H 97 07/11/22 18:50 90 07/11/22 17:25 96 07/11/22 17:23 98.4 F 99 H 20 162/102 H 84 L Intake and Output 07/11/22 07/12/22 07/12/22 23:59 07:59 15:59 Intake Total 120 / 480 360 / 480 Output Total 2100 / 2400 1050 / 2450 1400 / 2450 Balance -2099 / - / -1039 / Intake: Intake, Oral Amount 120 / 480 360 / 480 Output: Output, Urine Amount 2100 / 2400 1050 / 2450 1400 / 2450 Other: Number of Unmeasured Voids 0 0 0 Weight 102.54 kg 99.337 kg 99.3 kg Patient Weight 07/12/22 23:59 Weight 99.3 kg Laboratory Results - last 24 hr 07/11/22 17:25: SARS-CoV-2 (PCR) Not detected, Influenza A Untype (PCR) Not detected, Influenza Type B (PCR) Not detected 07/11/22 17:40: WBC 7.0, RBC 4.42 L, Hgb 13.5 L, Hct 39.8 L, MCV 90.0, MCH 30.4, MCHC 33.8, RDW 15.3, Plt Count 124 L, MPV 9.0, Neut % (Auto) 84.8 H, Lymph % (Auto) 7.4 L, Archuleta % (Auto) 6.8, Eos % (Auto) 0.6, Baso % (Auto) 0.4, Neut # (Auto) 6.0, Lymph # (Auto) 0.5 L, Archuleta # (Auto) 0.5, Eos # (Auto) 0.0, Baso # (Auto) 0.0 07/11/22 17:40: Sodium 142, Potassium 3.9, Chloride 105, Carbon Dioxide 27, Anion Gap 13.9, BUN 20, Creatinine 1.20, Estimated Creat Clear 81, Estimated GFR 60, Est GFR ( Amer) 72, Glucose 96, Calcium 8.5, Magnesium 2.1, Total Bilirubin 1.9 H, AST 34, ALT 23, Alkaline Phosphatase 77, Total Protein 7.5, Albumin 4.4, Globulin 3.1, Albumin/Globulin Ratio 1.4 07/11/22 17:40: Lactate 1.1 07/11/22 17:40: Troponin I 0.10 H, NT-Pro-B Natriuret Pep 1260 H 07/11/22 20:45: Troponin I 0.28 H 07/11/22 23:40: Troponin I 0.32 H 07/12/22 00:50: Troponin I 0.32 H 07/12/22 05:30: Troponin I 0.22 H 07/12/22 05:30: WBC 5.1 D, RBC 4.34 L, Hgb 12.9 L, Hct 39.4 L, MCV 90.8, MCH 29.7, MCHC 32.7, RDW 15.3, Plt Count 112 L, MPV 9.0, Neut % (Auto) 78.6, Lymph % (Auto) 10.1, Archuleta % (Auto) 10.3 H, Eos % (Auto) 0.6, Baso % (Auto) 0.3, Neut # (Auto) 4.0, Lymph # (Auto) 0.5 L, Archuleta # (Auto) 0.5, Eos # (Auto) 0.0, Baso # (Auto) 0.0 07/12/22 05:30: Sodium 140, Potassium 3.5, Chloride 104, Carbon Dioxide 27, Anion Gap 12.5, BUN 20, Creatinine 1.20, Estimated Creat Clear 78, Estimated GFR 60, Est GFR ( Amer) 72, Glucose 79, Calcium 8.4, Magnesium 2.0, Total Bilirubin 1.7 H, AST 31, ALT 18, Alkaline Phosphatase 66, Total Protein 6.4, Albumin 3.8 D, Globulin 2.6, Albumin/Globulin Ratio 1.5 I & O for Labs for Last 24 Hours: Intake & Output 07/09/22 07/10/22 07/11/22 07/12/22 23:59 23:59 23:59 23:59 Intake Total 480 / 480 Output Total 2100 / 2400 2450 / 2450 Balance -2099 / -1969 / Weight 102.54 kg 99.3 kg Constitutional: Present no acute distress and obese Head: Present atraumatic and normocephalic ENT: Present normal exam Neck: Present normal inspection Respiratory: Present normal respiratory effort; Absent accessory muscle use, rhonchi, wheezes or crackles Cardiac: Present Reg Rate and Rhythm GI: Present soft and normal bowel sounds; Absent distention or tenderness Extremities: Present normal inspection, full ROM and edema (trace BLE); Absent tenderness Skin: Present intact; Absent erythema Neuro: Present
[2022-07-12 18:08] LABS: Chloride 99 mmol/L (98-107)
[2022-07-12 18:09] LABS: Potassium 3.5 mmoL/L (3.5-5.1); Sodium 138 mmol/L (136-145)
[2022-07-12 18:11] LABS: Blood Urea Nitrogen 25 mg/dl (9-20); Creatinine Clearance Estimated 52 mL/min (50-200); Estimated Glomerular Filt Rate 37 ml/min (>60); GFR (African American) 45 ML/MIN (>60)
[2022-07-12 18:12] LABS: Anion Gap 11.5 mEq/L (5-15); Calcium 8.4 mg/dl (8.4-10.2); Carbon Dioxide 31 mmol/L (22.0-30.0); Glucose 104 mg/dl (74-100)
--- NOTE | 2022-07-12 18:41 | PC.NURSE ---
Pt is alert and oriented x4. He's been weaned to 1L NC. He was up to the chair for several hours this afternoon and tolerated well. He's ambulates to the bathroom independently. BBB on telemetry. He's denied any complaints thus far. He is currently resting in bed with his eyes closed. Bed is locked and in the lowest position, call light is within reach.
--- NOTE | 2022-07-12 20:03 | PC.NURSE ---
hospitalist made aware of bp. stated to give lisinopril and hold carvedilol
[2022-07-13] VITALS: PULSE 50
[2022-07-13 04:00] VITALS: BP 151/61; PULSE 55; PULSE 67; RESP 18; TEMP 36.8; O2SAT 91; BMI 30.9
[2022-07-13 06:17] LABS: Alanine Aminotransferase 19 U/L (12-78); Albumin Level 3.8 g/dl (3.5-5.0); Albumin/Globulin Ratio 1.4 (1.1-1.8); Alkaline Phosphatase 65 U/L (38-126); Anion Gap 9.4 mEq/L (5-15); Aspartate Amino Transferase 34 U/L (17-59); Bilirubin,Total 1.2 mg/dl (0.2-1.3); Blood Urea Nitrogen 26 mg/dl (9-20); Calcium 8.6 mg/dl (8.4-10.2); Carbon Dioxide 30 mmol/L (22.0-30.0); Chloride 101 mmol/L (98-107); Creatinine Clearance Estimated 66 mL/min (50-200); Estimated Glomerular Filt Rate 50 ml/min (>60); GFR (African American) 60 ML/MIN (>60); Globulin 2.8 g/dL (1.3-3.2); Glucose 84 mg/dl (74-100); Potassium 3.4 mmoL/L (3.5-5.1); Sodium 137 mmol/L (136-145); Total Protein,Serum 6.6 g/dl (6.3-8.2)
[2022-07-13 07:51] VITALS: BP 134/60; PULSE 77; RESP 18; TEMP 37.2; O2SAT 92
[2022-07-13 08:00] VITALS: BP 134/60; PULSE 70; PULSE 77; RESP 18; TEMP 37.2; O2SAT 92
--- NOTE | 2022-07-13 09:37 | EXP.CARD.PN ---
Subjective Subjective Date: 07/13/22 Time: 08:30 Principal diagnosis: diastolic dysfunction, diastolic chf Interval history: This is a 71-year-old black gentleman who presented to the emergency department at [place] for shortness of breath, abdominal bloating, nausea and vomiting. His shortness of breath has been progressively worsening over the last few weeks as well as feeling bloated in his abdomen. He states that he woke up on the morning of admission around 3 AM with nausea and vomiting. He went to the emergency department at [place] and they were concerned with a small bowel obstruction. They did not have any beds available at their facility so the patient was transferred here to [facility]. The patient was found to have a pericardial effusion and he had an elevated BNP as well as troponin. The patient has been diuresed with IV Lasix. He had a -1905 fluid balance overnight last night. This morning he states that he is feeling much better. His shortness of breath is significantly improved. He denies any lower extremity edema. He denies any abdominal pain. He denies any fever, chills, nausea, vomiting, diarrhea, PND or orthopnea. The patient is currently on room air and states that he is breathing well. Exam Data for Last 24 hours Vital signs and Labs for Last 24 Hours: Temp Pulse Resp BP Pulse Ox 98.9 F 77 18 134/60 92 L 07/13/22 08:00 07/13/22 08:00 07/13/22 08:00 07/13/22 08:00 07/13/22 08:00 Laboratory Results - last 24 hr 07/12/22 17:53: Sodium 138, Potassium 3.5, Chloride 99, Carbon Dioxide 31 H, Anion Gap 11.5, BUN 25 H, Creatinine 1.80 H D, Estimated Creat Clear 52, Estimated GFR 37 L, Est GFR ( Amer) 45 L D, Glucose 104 H D, Calcium 8.4 07/13/22 05:32: Sodium 137, Potassium 3.4 L, Chloride 101, Carbon Dioxide 30, Anion Gap 9.4, BUN 26 H, Creatinine 1.40 H D, Estimated Creat Clear 66, Estimated GFR 50 L, Est GFR ( Amer) 60 D, Glucose 84, Calcium 8.6, Total Bilirubin 1.2, AST 34, ALT 19, Alkaline Phosphatase 65, Total Protein 6.6, Albumin 3.8, Globulin 2.8, Albumin/Globulin Ratio 1.4 I & O for Last 24 hours: Intake & Output 07/10/22 07/11/22 07/12/22 07/13/22 23:59 23:59 23:59 23:59 Intake Total 1020 / 1170 510 / 510 Output Total 2100 / 2400 2925 / 2925 0 / 0 Balance -2100 / -2280 -1905 / -1755 510 / 510 Weight 226 lb 1 oz 218 lb 14.704 oz 216 lb 9 oz Narrative: Telemetry strip shows sinus rhythm with a rate of 65 bpm. Constitutional Constitutional: no acute distress and obese *Routine HEENT Exam Head: Present normocephalic and atraumatic ENT: Present mucous membranes moist *Routine Neck Exam Neck: Present supple, full ROM and normal carotid upstroke; Absent JVD, carotid bruit or lymphadenopathy *Routine Respiratory Exam Respiratory: Present CTA bilaterally, normal respiratory effort, able to speak in complete sentences and symmetric chest movement *Routine Cardiovascular Exam Cardiovascular: Present RRR, Normal S1 and Normal S2; Absent murmur or gallop *Routine Abdominal Exam Abdominal: Present soft and normoactive bowel sounds; Absent tenderness, distended or organomegaly *Routine Extremities Exam Extremities: Present full ROM, pulses intact and normal capillary refill; Absent cyanosis, clubbing or edema *Routine Skin Exam Skin: Present intact and warm; Absent erythema *Routine Neurological Exam Neurological: Present alert, oriented X3 and CN II-XII intact; Absent sensory deficit or motor deficit Routine Psychiatric Exam Psychiatric: Present normal affect Progress Note: A&P Assessment and plan (1) Acute on chronic heart failure with preserved ejection fraction (HFpEF): Status: Acute (2) Diastolic dysfunction: Status: Acute (3) Pericardial effusion: Status: Acute (4) Dyspnea: Status: Acute (5) Chronic kidney disease, stage 3: Status: Chronic (6) HLD (hyperlipidemia): Status: Chronic (7) CAD (coronary artery
[2022-07-13 11:38] VITALS: BP 119/56; PULSE 49; RESP 16; TEMP 36.8; O2SAT 92
[2022-07-13 12:00] VITALS: PULSE 50
--- NOTE | 2022-07-13 14:04 | EXP.DC.SUM ---
General Admission date:: 07/11/22 Discharge date: 07/13/22 HPI HPI HPI: Mr. Wills is a 71-year-old gentleman who initially presented to [place] ER earlier today after waking up this morning with vomiting at 3 AM. Said his stomach has felt like it was full and tight, with worsening distention over the past few days. Denies any blood in his vomit. Last bowel movement yesterday. No fever. Has had some shortness of breath but no cough or chest pain. Shortness of breath has been going on for the past 1 to 2 weeks. On presentation to the ER in [place], labs were obtained and imaging was performed. Patient was noted to have stable labs with baseline kidney function and creatinine 1.2. Imaging of his abdomen showing dilated small bowel loops on KUB, concerning for ileus. CT of abdomen reportedly showing concern for small bowel obstruction. [place] had no beds, consulted [facility] for transfer for further care. Patient accepted as transfer. On arrival to the floor he states he has never had surgery on his abdomen. Denies any current pain with palpation of his abdomen. Does feel somewhat short of breath and is requiring 2 L oxygen at this time which is new for him. Attempts were made to place NG at [place], placed twice but intolerant of NG due to gag reflex. NG removed. At this time denies nausea, fever, confusion, belly pain. Hospital Course Hospital Course Hospital Course: Patient was admitted for NSTEMI. Cardiology was consulted. Noted to have pericardial effusion Without tamponade.. This is most likely secondary to his minoxidil. His minoxidil has been stopped. Hypervolemic and diuresed. -Continue home lisinopril 40 mg twice daily, long-acting nitrate -Increase carvedilol to 37.5 mg twice daily Discharge with cardiology follow-up Exam Data for Last 24 hours Vital signs and Labs for Last 24 Hours: Temp Pulse Resp BP Pulse Ox 98.3 F 50 L 16 119/56 L 92 L 07/13/22 11:38 07/13/22 12:00 07/13/22 11:38 07/13/22 11:38 07/13/22 11:38 Laboratory Results - last 24 hr 07/12/22 17:53: Sodium 138, Potassium 3.5, Chloride 99, Carbon Dioxide 31 H, Anion Gap 11.5, BUN 25 H, Creatinine 1.80 H D, Estimated Creat Clear 52, Estimated GFR 37 L, Est GFR ( Amer) 45 L D, Glucose 104 H D, Calcium 8.4 07/13/22 05:32: Sodium 137, Potassium 3.4 L, Chloride 101, Carbon Dioxide 30, Anion Gap 9.4, BUN 26 H, Creatinine 1.40 H D, Estimated Creat Clear 66, Estimated GFR 50 L, Est GFR ( Amer) 60 D, Glucose 84, Calcium 8.6, Total Bilirubin 1.2, AST 34, ALT 19, Alkaline Phosphatase 65, Total Protein 6.6, Albumin 3.8, Globulin 2.8, Albumin/Globulin Ratio 1.4 I & O for Last 24 hours: Intake & Output 07/10/22 07/11/22 07/12/22 07/13/22 23:59 23:59 23:59 23:59 Intake Total 1020 / 1170 510 / 510 Output Total 2100 / 2400 2925 / 2925 0 / 0 Balance -2100 / -2280 -1905 / -1755 510 / 510 Weight 102.54 kg 99.3 kg 98.231 kg Constitutional Constitutional: no acute distress and obese *Routine HEENT Exam Head: Present normocephalic Eye: Present EOMI and PERRL ENT: Present mucous membranes moist *Routine Neck Exam Neck: Present supple; Absent lymphadenopathy *Routine Respiratory Exam Respiratory: Present CTA bilaterally *Routine Cardiovascular Exam Cardiovascular: Present RRR *Routine Abdominal Exam Abdominal: Present soft and normoactive bowel sounds; Absent tenderness *Routine Extremities Exam Extremities: Absent cyanosis, clubbing or edema *Routine Skin Exam Skin: Present warm; Absent rash *Routine Neurological Exam Neurological: Present alert and oriented X3 Results Data Completed and Pending Labs on day of discharge: Labs from last 24 hours 07/13/22 07/12/22 05:32 17:53 Sodium 137 138 Potassium 3.4 L 3.5 Chloride 101 99 Carbon Dioxide 30 31 H Anion Gap 9.4 11.5 BUN 26 H 25 H Creatinine 1.40 H D 1.80 H D Estimated Creat Clear 66 52 Estimated GFR 50 L 37 L Es
--- NOTE | 2022-07-13 14:30 | HMH.PHAINT1 ---
Pharmacy Intervention Comments: DISCHARGE MEDICATION COUNSELING PROVIDED. DISCUSSED STOPPING THE MINOXIDIL AND INCREASING CARVEDILOL FROM 25 MG TWICE DAILY TO 37.5 MG TWICE DAILY. EXPLAINED THAT THE PATIENT COULD TAKE ONE AND A HALF TABLETS OF THE 25 MG TWICE DAILY TO GET THE NEW 37.5 MG STRENGTH. PATIENT ASKED IF DR Juan Pablo LERNER WOULD SEND IN A REFILL FOR HIS FINASTERIDE. I ADVISED MR LOPEZ THAT I WOULD CALL AND ASK DR Juan Pablo LERNER ABOUT THE REFILL. I SPOKE WITH DR Juan Pablo LERNER REGARDING THE FINASTERIDE AND HE APPROVED A REFILL. PATIENT VERBALIZED NO FURTHER QUESTIONS AT THIS TIME.
--- NOTE | 2022-07-17 13:29 | CARE MANAGER ---
Patient returned phone call regarding hospital discharge. He states he is doing well. He denies any questions or concerns. He picked up his medication and is aware of his follow up appointment. MILY De La Torre
== END 2022-07-13 14:57 | disposition home or self-care (01) | DRG 280 ==
PROVIDERS: Nurse Practitioner Family; Admitting Provider Internal Medicine Adolescent Medicine; PCP Family Medicine; Visit Provider Internal Medicine Adolescent Medicine
DX: I21.4 Non-ST elevation (NSTEMI) myocardial infarction (principal); I50.33 Acute on chronic diastolic (congestive) heart failure; I31.39 Other pericardial effusion (noninflammatory); N18.30 Chronic kidney disease, stage 3 unspecified; E78.2 Mixed hyperlipidemia; I25.118 Atherosclerotic heart disease of native coronary artery with other forms of angina pectoris; N40.0 Benign prostatic hyperplasia without lower urinary tract symptoms; I27.20 Pulmonary hypertension, unspecified; E66.9 Obesity, unspecified; Z68.31 Body mass index [BMI] 31.0-31.9, adult; I13.10 Hypertensive heart and chronic kidney disease without heart failure, with stage 1 through stage 4 chronic kidney disease, or unspecified chronic kidney disease
CPT/HCPCS: 36415; 80048; 80053; 83605; 83735; 83880; 84484; 85025; 93005; 93306; C9803; U0003; U0005

== ENCOUNTER → 2022-09-19 10:54 | Outpatient (CLI) | payer MEDICARE, SELFPAY | PROVIDERS: PCP Family Medicine; Visit Provider Physician Assistant | DX: E78.2 Mixed hyperlipidemia (principal); I11.0 Hypertensive heart disease with heart failure; I25.118 Atherosclerotic heart disease of native coronary artery with other forms of angina pectoris; I27.20 Pulmonary hypertension, unspecified; I34.0 Nonrheumatic mitral (valve) insufficiency; I45.10 Unspecified right bundle-branch block; I50.32 Chronic diastolic (congestive) heart failure; I65.23 Occlusion and stenosis of bilateral carotid arteries | CPT/HCPCS: 93306 ==

== ENCOUNTER → 2022-12-26 07:31 | Outpatient (CLI) | payer MEDICARE, SELFPAY ==
--- NOTE | 2022-12-26 07:36 | NM_ITS ---
APPROVED REPORT Exam: Nuclear Stress Test Indication: chest pain..high BP..high cholesterol..family hx Patient Location: Outpatient Stress Tech: Kami Mcdermott [place] Tech:Natalie Dover DELFINOAkil RT(R)(N) Ht: 5 ft 10 in Wt: 220 lbs HR: 59 bpm BP: 191/96 mmHg BSA: 2.17 m2 Rhythm: NSR TID: 1.10 BMI: 31.5 History: chest pain..high BP..high cholesterol..family hx Procedure: Patient received 0.4 mg of intravenous Lexiscan, resting heart rate 59 bpm, resting blood pressure 191/96 mmHg, with Lexiscan maximum heart rate achieved was 78 bpm which is 85 % of the maximum predicted heart rate and blood pressure was 191/96 mmHg. With Lexiscan, patient denied any complaint of chest pain. Cardiac Stress and Resting SPECT Images: Cardiac Stress and Resting SPECT images were obtained using technetium 99m Myoview 30.5 mCi stress and 10.60 mCi at rest. Resting and stress imaging in both supine and prone positions demonstrate a large sized, severe, fixed perfusion defect in the inferior LV wall, from the base and extending towards the distal inferoapical region. There is also a medium sized, moderate, partially reversible perfusion defect in the basal lateral LV wall. Gated imaging demonstrates mild reduction in global LV systolic function. There is moderate hypokinesis of the inferior LV wall, as well a in the basal lateral LV wall. LVEF is calculated at 41%. Conclusion: Large sized, severe, fixed perfusion defect in the inferior LV wall, from the base and extending towards the distal inferoapical region. There is also a medium sized, moderate, partially reversible perfusion defect in the basal lateral LV wall. Findings are suggestive of partial reversible ischemia. Gated imaging demonstrates mild reduction in global LV systolic function. There is moderate hypokinesis of the inferior LV wall, as well a in the basal lateral LV wall. LVEF is calculated at 41%. Electronically signed by : Gricelda Ferrer, 12/27/2022 00:54:25
--- NOTE | 2022-12-26 10:05 | CA_ITS ---
APPROVED REPORT Exam: Pharmacologic Technologist: Kami Mcdermott Ht: 5 ft 10 in Wt: 227 lbs BSA: 2.20 m2 HR: 58 bpm BP: 191/96 mmHg Rhythm: NSR Indications: Shortness of Breath Medical History Medications: Lisinopril,,,,, Aspirin,,,,, Simvastatin,,,,, Flomax,,,,, Carvedilol,,,,, MiraLAX,,,,, Finasteride,,,,, Stress Test Details Test: LEXISCAN HR Resting HR: 59 bpm Max Heart Rate (APMHR): 147 bpm Max HR Achieved: 78 bpm Target HR (85% APMHR): 125 bpm % of APMHR: 53 Recovery HR: 64 bpm BP Resting BP: 191.0/96.0 mmHg Max BP: 191.0/96.0 mmHg Recovery BP: 139.0/70.0 mmHg ECG Resting ECG: Sinus bradycardia, Right bundle branch block, PVCs. Stress ECG: No ST changes ST Change: PACs, PVCs Clinical Exercise duration: 04:02 min Highest Stage Achieved: Stress ECG Conclusion Symptoms: Mild, brief shortness of air. No chest pain. Arrhythmias/Ectopy: Occasional PVC, rare PAC. ST-T Changes: No significant changes. Conclusion: Unremarkable Lexiscan stress. Myoview images reported separately. Test Summary REST . . . . . . . Resting REST 06:41 . . 59 . 191/ 96 . . Stage 1 01:00 . . 67 . . . . Stage 2 01:00 . . 72 . . . . Stage 3 01:00 . . 72 . 152/ 62 . . Stage 4 01:00 . . 67 . 146/ 73 . . Stage 4 01:02 . . 68 . 146/ 73 . Stop exercise at 04:02 RECOVERY 01:00 . . 66 . 143/ 66 . . RECOVERY 02:00 . . 68 . 143/ 66 . . RECOVERY 03:00 . . 67 . 138/ 73 . . RECOVERY 04:00 . . 65 . 138/ 73 . . RECOVERY 04:39 . . 62 . 139/ 70 . . Electronically signed by : Gricelda Ferrer, 12/27/2022 00:49:53
== END ==
PROVIDERS: PCP Family Medicine; Visit Provider Nurse Practitioner
DX: E78.5 Hyperlipidemia, unspecified (principal); I27.20 Pulmonary hypertension, unspecified; I34.0 Nonrheumatic mitral (valve) insufficiency; I45.10 Unspecified right bundle-branch block; I50.30 Unspecified diastolic (congestive) heart failure; I65.29 Occlusion and stenosis of unspecified carotid artery; R06.02 Shortness of breath; I20.8 Other forms of angina pectoris; I11.0 Hypertensive heart disease with heart failure
CPT/HCPCS: 78452; 93017; A9502; J2785

== ENCOUNTER 2023-01-14 07:41 | Day surgery (SDC) | payer MEDICARE, SELFPAY ==
[2023-01-14] VITALS (11 sets, daily range): BP systolic 102–157; BP diastolic 61–79; PULSE 52–78; RESP 16–20; TEMP 36.6; O2SAT 95–98; BMI 32.0
--- NOTE | 2023-01-14 07:14 | IR_ITS ---
APPROVED REPORT Patient Location: Outpatient Fire Captain Marine: MARLEY Randall RT (R) PROCEDURES Left heart catheterization Left ventriculogram Selective coronary angiogram INDICATION Abnormal Myoview, Angina pectoris Informed consent was obtained prior to the procedure. COMPLICATIONS NONE Estimated Blood Loss: LESS THAN 10 ML TECHNIQUE One percent lidocaine used to anesthetize the right anterior aspect of the wrist. The right radial artery was accessed via the Seldinger technique. A 6 Persian sheath was placed in the right radial artery. 2.5 mg of Verapamil, 800 mcg of nitroglycerin, 1mg Lidocaine and 5000 U Heparin were given through the arterial sheath. The papa catheter was also used to perform left heart catheterization, left ventriculogram and selective coronary angiogram. At the end of the procedure the sheath was removed good hemostasis was achieved using Traclet band, patient was transferred to the postop holding area in stable condition. ANGIOGRAPHIC RESULTS The left main artery Normal The left anterior descending artery Large wraps the apex and has diffuse proximal mid vessel 10% luminal irregularities The circumflex artery Codominant mild 10% luminal irregularities The right coronary artery Codominant with mild 10% luminal irregularities The CORMIER ventriculogram reveals Normal 65% The left ventricular end-diastolic pressure 10 to 15 mmHg IMPRESSION Mild nonflow limiting coronary disease Normal ejection fraction Normal left ventricular end-diastolic pressure PLAN 1. Medical management Electronically signed by : Dennis Hamlin MD 01/14/2023 10:24:03
[2023-01-14 08:34] LABS: Basophils % 0.2 % (0.1-2.0); Eosinophils # 0.4 K/mm3 (0.0-0.4); Eosinophils % 5.5 % (0.1-12.0); Hematocrit 46.9 % (42.0-52.0); Hemoglobin 15.1 g/dL (14.1-18.0); Lymphocytes # 1.2 K/mm3 (0.7-4.5); Lymphocytes % 15.1 % (10-50); Mean Corpuscular HGB Conc 32.2 g/dL (31.8-35.4); Mean Corpuscular Hemoglobin 30.4 pg (27.0-31.2); Mean Corpuscular Volume 94.3 fl (80-94); Mean Platelet Volume 9.5 fl (7.4-10.4); Monocytes # 0.4 K/mm3 (0.1-1.0); Monocytes % 5.6 % (1.7-9.3); Neutrophils # 5.8 K/mm3 (1.8-7.8); Neutrophils % 73.6 % (37.0-80.0); Platelet Count 142 K/mm3 (142-424); Red Blood Count 4.98 M/mm3 (4.60-6.20); Red Cell Distribution Width 13.8 % (11.5-17.5); White Blood Count 7.8 K/mm3 (4.8-10.8)
[2023-01-14 08:38] LABS: Chloride 102 mmol/L (98-107); Potassium 3.9 mmoL/L (3.5-5.1); Sodium 141 mmol/L (136-145)
[2023-01-14 08:41] LABS: Anion Gap 9.9 mEq/L (5-15); Blood Urea Nitrogen 20 mg/dl (9-20); Calcium 9.5 mg/dl (8.4-10.2); Carbon Dioxide 33 mmol/L (22.0-30.0); Creatinine Clearance Estimated 72 mL/min (50-200); Estimated Glomerular Filt Rate 54 ml/min (>60); GFR (African American) 65 ML/MIN (>60); Glucose 124 mg/dl (74-100)
== END 2023-01-14 13:19 | disposition home or self-care (01) ==
PROVIDERS: PCP Family Medicine; Visit Provider Internal Medicine
DX: E78.5 Hyperlipidemia, unspecified (principal); I11.9 Hypertensive heart disease without heart failure; I25.118 Atherosclerotic heart disease of native coronary artery with other forms of angina pectoris; R94.39 Abnormal result of other cardiovascular function study; Z79.899 Other long term (current) drug therapy; N18.30 Chronic kidney disease, stage 3 unspecified; I50.32 Chronic diastolic (congestive) heart failure; I65.23 Occlusion and stenosis of bilateral carotid arteries; I27.20 Pulmonary hypertension, unspecified; I34.0 Nonrheumatic mitral (valve) insufficiency; I13.0 Hypertensive heart and chronic kidney disease with heart failure and stage 1 through stage 4 chronic kidney disease, or unspecified chronic kidney disease
CPT/HCPCS: 80048; 85025; 93458; 99152; C1725; C1769; J1644; Q9967

== ENCOUNTER 2024-07-13 09:20 | Outpatient (CLI) | payer MEDICARE, SELFPAY ==
[2024-07-13 09:32] LABS: Basophils % 0.3 % (0.1-2.0); Eosinophils # 0.6 K/mm3 (0.0-0.4); Eosinophils % 8.8 % (0.1-12.0); Hematocrit 42.2 % (42.0-52.0); Hemoglobin 14.5 g/dL (14.1-18.0); Lymphocytes % 14.3 % (10-50); Mean Corpuscular HGB Conc 34.4 g/dL (31.8-35.4); Mean Corpuscular Hemoglobin 31.2 pg (27.0-31.2); Mean Corpuscular Volume 90.8 fl (80-94); Mean Platelet Volume 10.3 fl (7.4-10.4); Monocytes # 0.9 K/mm3 (0.1-1.0); Neutrophils # 4.5 K/mm3 (1.8-7.8); Neutrophils % 63.2 % (37.0-80.0); Platelet Count 178 K/mm3 (142-424); Red Blood Count 4.65 M/mm3 (4.60-6.20); Red Cell Distribution Width 13.8 % (11.5-17.5); White Blood Count 7.1 K/mm3 (4.8-10.8)
[2024-07-13 10:22] LABS: Albumin Level 4.3 g/dl (3.5-5.0); Chloride 102 mmol/L (98-107); Sodium 140 mmol/L (136-145)
[2024-07-13 10:23] LABS: Potassium 3.7 mmoL/L (3.5-5.1)
[2024-07-13 10:25] LABS: Alanine Aminotransferase 19 U/L (12-78); Alkaline Phosphatase 76 U/L (38-126); Anion Gap 9.7 mEq/L (5-15); Aspartate Amino Transferase 23 U/L (17-59); Bilirubin,Indirect 1.1 mg/dL (0.0-0.9); Bilirubin,Total 1.1 mg/dl (0.2-1.3); Blood Urea Nitrogen 15 mg/dl (9-20); Carbon Dioxide 32 mmol/L (22.0-30.0); Cholesterol 124 mg/dl (140-200); Estimated Glomerular Filt Rate 59 ml/min (>60); GFR (African American) 72 ML/MIN (>60); Total Protein,Serum 6.9 g/dl (6.3-8.2); Triglycerides 59 mg/dl (30-150); VLDL Cholesterol 12 mg/dL (0-40)
[2024-07-13 10:26] LABS: Calcium 9.9 mg/dl (8.4-10.2); Chol/HDL Ratio 2.3 (1-3.5); Glucose 125 mg/dl (74-100); HDL Cholesterol 54 mg/dl (40-60)
[2024-07-13 10:36] LABS: Direct LDL Cholesterol 48.28 mg/dL (100-129)
[2024-07-13 10:40] LABS: Free T4 (Free Thyroxine) 1.32 ng/dl (0.78-2.19)
== END 2024-07-13 23:59 | disposition home or self-care (01) ==
LOC: LAB 09:21
PROVIDERS: PCP Nurse Practitioner Family; Visit Provider Nurse Practitioner Family
DX: I10 Essential (primary) hypertension (principal); I95.2 Hypotension due to drugs; I25.10 Atherosclerotic heart disease of native coronary artery without angina pectoris; E78.2 Mixed hyperlipidemia
CPT/HCPCS: 36415; 80048; 80061; 80076; 84439; 84443; 85025

== ENCOUNTER 2025-01-13 12:47 | Outpatient (CLI) | payer MEDICARE, SELFPAY ==
--- OUTSIDE RECORDS SUMMARY | 2025-01-13 12:49 | XMS_ITS | Clinical Summary ---
Author Organization [facility] Address [address] [place] [address] Care Team Providers Care Mailroom Supervisor Name Role Phone Tavares Johnston MD Primary Care Provider [phone] Allergies No known active allergies Medications carvedilol (COREG) 25 mgIndications:Unspe cified hypertensive heart disease without heart failure,Other chest pain,CAD (coronary artery disease),Hyperlipid emia,Other and unspecified angina pectoris,Abnormal cardiovascular stress test Take 1 Tab by mouth Twice a day. Active simvastatin (ZOCOR) 40 mg tabletIndications:U nspecified hypertensive heart disease without heart failure,Other chest pain,CAD (coronary artery disease),Hyperlipid emia,Other and unspecified angina pectoris,Abnormal cardiovascular stress test Take 1 Tab by mouth Daily. Active furosemide (LASIX) 40 mg tabletIndications:U nspecified hypertensive heart disease without heart failure,Other chest pain,CAD (coronary artery disease),Hyperlipid emia,Other and unspecified angina pectoris,Abnormal cardiovascular stress test Take 1 Tab by mouth Daily. Active aspirin 81 mg tabletIndications:U nspecified hypertensive heart disease without heart failure,Other chest pain,CAD (coronary artery disease),Hyperlipid emia,Other and unspecified angina pectoris,Abnormal cardiovascular stress test Take 1 Tab by mouth Daily. Active minoxidil (LONITEN) 10 mg tabletIndications:U nspecified hypertensive heart disease without heart failure,CAD (coronary artery disease),Hyperlipid emia Take 1 Tab by mouth Twice a day. 180 Tab 3 2 Active Active Problems Problem Noted Date Diagnosed Date CAD (coronary artery disease) 12/25/2011 Abnormal cardiovascular stress test 05/22/2011 Hypertension Hyperlipidemia CAD (coronary artery disease) Family History Medical History Relation Name Comments Coronary Artery Disease Brother Coronary Artery Disease Father Coronary Artery Disease Mother Hypertension Mother Relation Name Status Comments Brother Father Mother Social History Tobacco Use Types Packs/Day Years Used Date Smoking Tobacco: Never Smokeless Tobacco: Never Alcohol Use Standard Drinks/Week Comments No 0 (1 standard drink = 0.6 oz pur e alcohol) Sex and Gender Information Value Date Recorded Sex Assigned at Not on file Legal Sex Male 11:26 PM EST Gender Identity Not on file Sexual Orientation Not on file Last Filed Vital Signs Vital Sign Reading Time Taken Comments Blood Pressure 135/78 12/25/2011 3:29 PM EDT Pulse 69 12/25/2011 3:29 PM EDT Temperature 36.8 C (98.3 F) 05/24/2011 12:00 PM EST Respiratory Rate 18 12/25/2011 3:29 PM EDT Oxygen Saturation 100% 05/24/2011 7:08 PM EST Inhaled Oxygen Concentration - - Weight 112 kg (247 lb) 12/25/2011 3:29 PM EDT Height 180.3 cm (5' 11 ) 12/25/2011 3:29 PM EDT Body Mass Index 34.45 12/25/2011 3:29 PM EDT Plan of Treatment Health Maintenance Due Date Last Done Comments COLOGUARD 1950 COLONOSCOPY 1950 Colorectal Screening Combination 1950 FIT 1950 HEP C SCREENING 1950 SIGMOIDOSCOPY 1950 ANNUAL WELLNESS EXAM 1952 DTAP/TDAP/TD VACCINE (1 - Tdap) 1968 PNEUMOCOCCAL VACCINE 65+ YEA RS (1 of 1 - PCV) 12/25/1999 Shingles Vaccine (Shingrix) (1 of 2) 12/25/1999 INFLUENZA VACCINE (#1) 2024 HEP A VACCINE Aged Out No longer elig ible based on patient's age to complete this topic HIB VACCINE Aged Out No longer eligi ble based on patient's age to complete this topic ROTOVIRUS VACCINE Aged Out No longer eligible based on patient's age to complete this topic Insurance [employer] MEDIC[employer] ACCESS Member Subscriber Plan / Payer (Ef fective 2011-Present) Name:Aldo Wills Relation to Subscriber:Self Name:Aldo Wills Payer ID:[id number] (NAIC) Type:Not on file Address[address] [address] [employer]UE [employer] ACCESS Care Teams Mailroom Supervisor Relationship Specialty Start Date End Date Tavares Johnston MD [address] [place] [address] PCP - General Family Medicine 05/22/11
--- OUTSIDE RECORDS SUMMARY | 2025-01-13 12:49 | XMS_ITS | Encounter Summary ---
Author Organization [facility] Address [address] [place] [address] Care Team Providers Care Concrete Tile Machine Operator Name Role Phone Tavares Johnston MD Primary Care Provider [phone] Encounter Details Date Type Department Care Team (Late st Contact Info) Description 05/23/2011 Telephone [facility] Pre-Admission Testing [address] [place] [address] Stacy Mcbride Social History Tobacco Use Types Packs/Day Years Used Date Smoking Tobacco: Never Smokeless Tobacco: Never Alcohol Use Standard Drinks/Week Comments No 0 (1 standard drink = 0.6 oz pur e alcohol) Sex and Gender Information Value Date Recorded Sex Assigned at Not on file Legal Sex Male 11:26 PM EST Gender Identity Not on file Sexual Orientation Not on file documented as of this encounter Plan of Treatment Not on file documented as of this encounter Visit Diagnoses Not on filedocumented in this encounter Care Teams Concrete Tile Machine Operator Relationship Specialty Start Date End Date Tavares Johnston MD [address] [place] [id number] PCP - General Family Medicine 05/22/11 documented as of this encounter
--- OUTSIDE RECORDS SUMMARY | 2025-01-13 12:49 | XMS_ITS | Clinical Summary ---
Author Organization [facility] Address [address] [place] [id number] Care Team Providers Care Speech And Language Tutor Name Role Phone Nikolsa Maciel MD Primary Care Provid er Allergies No known active allergies Medications valsartan-hydro chlorothiazide (DIOVAN-HCT) 160-12.5 MG per tablet Take 1 tablet by mouth Daily. Active carvedilol (COREG) 25 MG tablet Take 25 mg by mouth 2 (Two) Times a Day With Meals. Active minoxidil (LONITEN) 10 MG tablet Take 10 mg by mouth 2 (Two) Times a Day. Active nitrofurantoin (MACRODANTIN) 100 MG capsule Take 100 mg by mouth 2 (Two) Times a Day. Active tamsulosin (FLOMAX) 0.4 MG capsule 24 hr capsule Take 1 capsule by mouth Every Night. Active ciprofloxacin (CIPRO) 500 MG tablet Take 500 mg by mouth 2 (Two) Times a Day. Active aspirin 81 MG EC tablet Take 81 mg by mouth Daily. Active simvastatin (ZOCOR) 40 MG tablet Take 40 mg by mouth Every Night. Active sodium-potassiu m-magnesium sulfates (Suprep Bowel Prep Kit) 17.5-3.13-1.6 GM/177ML solution oral solution Take First Dose at 5 pm Take Second Dose at 10 pm, Nothing to eat or drink after midnight. May substitute for Golytely or Moviprep. Follow instructions provided by Office. Call [phone] with questions. 354 mL 4 Active Social History Tobacco Use Types Packs/Day Years Used Date Smoking Tobacco: Never Smokeless Tobacco: Never Alcohol Use Standard Drinks/Week Comments No 0 (1 standard drink = 0.6 oz pur e alcohol) Abuse Screen Answer Date Recorded Unsafe at Home or Work/School Not on file Feels Threatened by Someone? Not on file 02/2023 Does Anyone Keep You from Co ntacting Others or Doint Things Outside the Home? Not on file 01/30/2023 Physical Sign of Abuse Present Not on file 1 Housing Stability Answer Date Recorded Current Living Arrangements Not on file 01/20 Potentially Unsafe Housing Conditions Not on loc e 01/30/2023 Family and Community Support Answer Travon e Recorded Help with Day-to-Day Activities Not on file 01/30/2023 Lonely or Isolated Not on file 01/30/2023 Employment Answer Date Recorded Do you want help finding or keeping work or a yaneth b? Not on file 01/30/2023 Disabilities Answer Date Recorded Concentrating, Remembering, or Making Decisions Difficulty Not on file 01/30/2023 Doing Errands Independently Difficulty Not on fi le 01/30/2023 Education Answer Date Recorded Help with school or training? Not on file Preferred Language Not on file 01/30/2023 Sex and Gender Information Value Date Recorded Sex Assigned at Not on file Legal Sex Male 9:51 AM EST Gender Identity Not on file Sexual Orientation Not on file Last Filed Vital Signs Vital Sign Reading Time Taken Comments Blood Pressure 141/71 04/27/2018 1:00 AM EST Pulse 65 04/27/2018 1:00 AM EST Temperature 37 C (98.6 F) 04/26/2018 10:47 PM EST Respiratory Rate 16 04/27/2018 1:00 AM EST Oxygen Saturation 96% 04/27/2018 1:00 AM EST Inhaled Oxygen Concentration - - Weight 107 kg (235 lb) 04/26/2018 10:47 PM EST Height 177.8 cm (5' 10 ) 04/26/2018 10:47 PM EST Body Mass Index 33.72 04/26/2018 10:47 PM EST Plan of Treatment Health Maintenance Due Date Last Done Comments TDAP/TD VACCINES (1 - Tdap) 1968 COLOGUARD 1994 COLON CANCER SCREENING 5 YEA R SIGMOIDOSCOPY 1994 CT COLONOGRAPHY 1994 FECAL OCCULT BLOOD TEST 1994 FIT Testing (1 year) 1994 Pneumococcal Vaccine 50+ (1 of 1 - PCV) 12/25/1999 ZOSTER VACCINE (1 of 2) 12/25/1999 ANNUAL WELLNESS VISIT 02/25/2024 HEPATITIS C SCREENING 02/25/2024 INFLUENZA VACCINE 11/20/2024 02/12/2024, , 02/08/2022, Additional history exists COVID-19 Vaccine (7 - 2023-2 5 season) 2024 02/12/2024, 02/13/2023, 02/15/2022, Additional history exists RSV Vaccine - Adults (1 - 1- dose 75+ series) 2024 COLONOSCOPY 04/20/2034 04/20/2024, 09/20, 09/29/2018, Additional history exists COLORECTAL CANCER SCREENING 04/20/2034 AAA SCREEN ONCE Completed 02/10/2024, 01/20, 07/18/2022 Procedures Procedure Name Priority Date/Time Associated Diagnosis Comments SCANNED - COLONOSCOPY 04/20/2024 from Last 3 Months or Most Recently Relevant to Health Maintenance Results * Colonoscopy, Scan (04/20/2024) Leno Moon MD CHART REVIEW T ABS Final Result from Last 3 Months or Most Recently Relevant to Health Maintenance Insurance MEDICARE A & B Member Subscriber Plan / Payer (Ef fective 2014-Present) Name:Aldo Wills Member ID:[id number] Relation to Subscriber:Self Name:Aldo Wills Subscriber ID:[id number] Payer ID:[id number] Group ID:Not on file Type:Not on file Address: [address] [employer] Care Teams Speech And Language Tutor Relationship Specialty Start Date End Date Nikolas Maciel MD [address] [place] [address] PCP - General Family Medicine 05/08/16
--- OUTSIDE RECORDS SUMMARY | 2025-01-13 12:49 | XMS_ITS | Clinical Summary ---
Author Organization [facility] Address [address] [place] [address] Care Team Providers Care Digital Marketing Program Manager Name Role Phone Nikolas Maciel MD Primary Care Provid er Family History Medical History Relation Name Comments Heart attack Brother Relation Name Status Comments Brother Social History Tobacco Use Types Packs/Day Years Used Date Smoking Tobacco: Never Sex and Gender Information Value Date Recorded Sex Assigned at Not on file Legal Sex Male 7:30 PM EDT Gender Identity Not on file Sexual Orientation Not on file Last Filed Vital Signs Vital Sign Reading Time Taken Comments Blood Pressure 126/72 09/19/2022 12:06 PM EDT Pulse 49 09/19/2022 12:06 PM EDT Temperature - - Respiratory Rate - - Oxygen Saturation - - Inhaled Oxygen Concentration - - Weight 99.3 kg (219 lb) 09/19/2022 12:06 PM EDT Height 177.8 cm (5' 10 ) 09/19/2022 12:06 PM EDT Body Mass Index 31.42 09/19/2022 12:06 PM EDT Plan of Treatment Health Maintenance Due Date Last Done Comments [facility]-Depression Screening 1950 [facility]-Hepatitis C Screening 1950 [facility]-Medicare Annual Wellness (AWV) 1950 [facility]-/Child/Adol SDOH Screenings 1950 [facility]-Obesity Intervention 12/25/1955 [facility]- SDOH Screenings 12/25/1967 [facility]-Adult SDOH Screenings 12/25/1967 [facility]-DTaP,Tdap,and Td Vaccines (1 - Tdap) 1968 CT Colonography 1994 FIT-DNA 1994 FIT 1994 FOBT 1994 Sigmoidoscopy 1994 [facility]-Pneumococcal Vaccine: 50+ Years (1 of 1 - PCV) 12/25/1999 [facility]-Zoster Vaccines (1 of 2) 12/25/1999 [id number] Vaccine ( season) 2024 02/12/2024, 02/13/2023, 02/15/2022, Additional history exists [facility]-Influenza Vaccine (#1) 12/21/202402/11, 02/13/2023, 02/08/2022, Additional history exists [facility]-RSV Vaccine: 60+ Years or (1 - 1-dose 75+ series) 2024 Colonoscopy 09/29/2028 09/29/2018, 10/21/2013 [facility]-Colorectal Cancer Screening 09/29/2028 HPV Vaccines Aged Out No longer eligi ble based on patient's age to complete this topic [facility]-HIB Vaccines Aged Out No longer e ligible based on patient's age to complete this topic [facility]-Hepatitis A Vaccines Aged Out No longer eligible based on patient's age to complete this topic [facility]-IPV Vaccines Aged Out No longer e ligible based on patient's age to complete this topic [facility]-Rotavirus Vaccines Aged Out No lo nger eligible based on patient's age to complete this topic Procedures Procedure Name Priority Date/Time Associated Diagnosis Comments COLONOSCOPY 09/29/2018 from Last 3 Months or Most Recently Relevant to Health Maintenance Results * COLONOSCOPY (09/29/2018) Anatomical Region Laterality Modality Endoscopy Narrative 09/29/2018 Ordered by an unspecified provider. us Historical Provider GI PROCEDURE ORDERABLES Kate l Result from Last 3 Months or Most Recently Relevant to Health Maintenance Insurance MEDICARE AARP Care Teams Digital Marketing Program Manager Relationship Specialty Start Date End Date Nikolas Maciel MD [address] [place] [address] PCP - General 09/02/20
--- OUTSIDE RECORDS SUMMARY | 2025-01-13 12:49 | XMS_ITS | Clinical Summary ---
Author Organization [facility] Address [address] [place] [address] Care Team Providers Care Administrative Processor Name Role Phone Unavailable Primary Care Provider Unavailabl e Source Comments This information has been disclosed to you from confidential records protectedfrom disclosure by state law. You shall make no further disclosure of thisinformation without the specific, written, and informed release of theindividual to whom it pertains, or as otherwise permitted by law. A generalauthorization for the release of medical or other information is not sufficientfor the purposes of therelease of HIV test results or diagnoses. [id number] Social History Tobacco Use Types Packs/Day Years Used Date Smoking Tobacco: Never Assessed Sex and Gender Information Value Date Recorded Sex Assigned at Not on file Legal Sex Male 9:14 PM EST Gender Identity Not on file Sexual Orientation Not on file Plan of Treatment Not on file
--- NOTE | 2025-01-13 13:00 | CA_ITS ---
APPROVED REPORT EXAM: Comprehensive 2D, Doppler, and color-flow Echocardiogram Computer Science Professor: Sara Zaidi RT(R) Ht: 5 ft 6 in Wt: 242lbs BSA: 2.17 BP: 122/72 mmHg Indications: CAD, RBBB, recent cath at outside facility. 2D Dimensions LVEF (Carr's) 73.90 % M: 52 - 72 LV Volume 128.70 mL M: 62 - 150 LV Volume Index 59.3 mL/m2 M: 34 - 74 LA Volume 56.70 mL LA Volume Index 26.13 mL/m2 (M/F) 16-34 EF AP4 66.50 % EF AP2 77.9 % EF BP 73.9 % GL Strain -18.0 % M-Mode Dimensions RVDd 3.39 cm (0.9-2.6) LA Diam 4.86 cm (1.9-4.0) LVDd 6.14 cm (3.5-5.7) LVDs 4.32 cm (3.5-5.7) IVSd 1.44 cm (0.6-1.1) PWd 0.89 cm (0.6-1.1) EF (Teich) 55.70% FS 29.60% EDV (Teich) 189.70 mL ESV (Teich) 84.00 mL LV Diastology E Decel Time 357 (160-240 msec) E/A Ratio 0.83 Mitral Valve MV A Velocity 81.0 (40-130 cm/s) E/A Ratio 0.83 Tricuspid Valve TR P. Velocity 313.00 cm/s Left Ventricle The left ventricle is normal size. Left ventricular systolic function is normal. The left ventricular ejection fraction is within the normal range. There is increased left ventricular wall thickness. There is normal LV segmental wall motion. The left ventricular diastolic function is indeterminate. LVEF is 55% Right Ventricle The right ventricle is mildly dilated. The right ventricular systolic function is normal. Atria The left atrium is mildly dilated. The right atrium is mildly dilated. There is no color Doppler evidence of interatrial shunt. Aortic Valve The aortic valve is mildly thickened. There is no hemodynamically significant aortic valvular stenosis. Mild aortic regurgitation is present. Mitral Valve The mitral valve is normal in structure. No evidence of mitral valve stenosis. Trace mitral regurgitation is present. Tricuspid Valve The tricuspid valve leaflets are thin and pliable. Mild tricuspid regurgitation. RVSP is 35-40 mmHg. Pulmonic Valve The pulmonary valve is grossly normal in structure. Trace pulmonic valve regurgitation is present. Great Vessels The aortic root is normal in size. IVC is normal in size and collapses >50% with inspiration. Pericardium There is no pericardial effusion. Other Information Study Quality: Fair Conclusion Normal biventricular systolic function. Mild RV dilation. Mild biatrial dilation. Mild AI, mild TR. RVSP 35-40 mmHg. Electronically signed by : Gricelda Ferrer MD 01/13/2025 23:45:18
== END 2025-01-13 23:59 | disposition home or self-care (01) ==
LOC: RT 12:48
PROVIDERS: PCP Nurse Practitioner Family; Visit Provider Nurse Practitioner
DX: I08.2 Rheumatic disorders of both aortic and tricuspid valves (principal); I25.10 Atherosclerotic heart disease of native coronary artery without angina pectoris; I45.10 Unspecified right bundle-branch block; R42 Dizziness and giddiness; Z98.890 Other specified postprocedural states
CPT/HCPCS: 93306

== ENCOUNTER 2025-02-09 14:55 | Outpatient (CLI) | payer MEDICARE, SELFPAY ==
--- OUTSIDE RECORDS SUMMARY | 2025-02-09 15:05 | XMS_ITS | Clinical Summary ---
Author Organization [facility] Address [address] [place] [address] Care Team Providers Care Loan Broker Name Role Phone Unavailable Primary Care Provider [...] therelease of HIV test results or diagnoses. [id number] Social History Tobacco Use Types Packs/Day Years Used Date Smoking Tobacco: Never Assessed Sex and Gender Information Value Date Recorded Sex Assigned at Not on file Legal Sex Male 9:14 PM EST Gender Identity Not on file Sexual Orientation Not on file Plan of Treatment Not on file
--- OUTSIDE RECORDS SUMMARY | 2025-02-09 15:05 | XMS_ITS | Encounter Summary ---
Author Organization [email or web address] ([place], [place], [place], [place]) Address [address] [place] [address] Care Team Providers Care Behavior Support Specialist Name Role Phone Unavailable Primary Care Provider Unavailabl e Encounter Details Date Type Department Care Team (Late st Contact Info) Description 05/01/2018 Transcribed Document [facility] Family Medicine [facility] [address] ProviderCaroline MD [address] [place] [address] Social History Tobacco Use Types Packs/Day Years Used Date Smoking Tobacco: Never Assessed Sex and Gender Information Value Date Recorded Sex Assigned at Male 10/17/2021 8:27 PM CDT Legal Sex Male 8:27 PM CDT Gender Identity Male 10/17/2021 8:27 PM CDT Sexual Orientation Not on file documented as of this encounter Miscellaneous Notes * Cerner Conversion Note - Caroline Yang MD - 05/01/2018 7:41 AM CASINO CAGE MANAGER [facility] Main OR PACU Summary Primary Physician: NORA MACHUCA JR, MD-URO Finalized Date/Time: 05/01/18 09:10:02 Pt. Name: JOHN ALDOIris Mustafa/Sex: 1950 Male Med Rec #: [id number] Physician: NORA MACHUCA JR, MD-URO Financial #: [id number] Pt. Type: O Room/Bed: /1 Admit/Disch: 05/01/18 05:38:00 - Institution: [facility] Main OR PACU I Case Times Entry 1 In PACU I 05/01/18 08:17:00 Ready for PACU 05/01/18 09:50:00 Discharge Discharge from PACU 05/01/18 08:57:00 I Last Modified By: PANCHO ARZATE RN 05/01/18 09:09:08 [facility] OR PACU I Case Times Audit 05/01/18 09:09:08 Case Preparer And Liner: NORMAN Modifier: BRANDEP <+> 1 Ready for PACU Discharge <+> 1 Discharge from PACU I [facility] Main OR PACU Acuity Entry 1 Start Time 05/01/18 08:50:00 Stop Time 05/01/18 08:57:00 Acuity Level [facility] PACU Acuity I Last Modified By: PANCHO ARZATE RN 05/01/18 09:09:57 Finalized By: PANCHO ARZATE, RN Document Signatures Signed By: PANCHO ARZATE RN 05/01/18 09:10 Electronically signed by Inocencio [facility] Conversion Insurance Examining Clerk Cerner at 08/05/2022 11:23 PM CDT documented in this encounter Plan of Treatment Not on file documented as of this encounter Visit Diagnoses Not on filedocumented in this encounter
--- OUTSIDE RECORDS SUMMARY | 2025-02-09 15:05 | XMS_ITS | Encounter Summary ---
Author Organization [employer] ([place], [place], [place], [place]) Address [address] [place] [address] Care Team Providers Care Batch Freezer Operator Name Role Phone Unavailable Primary Care Provider Unavailabl e Encounter Details Date Type Department Care Team (Late st Contact Info) Description 05/01/2018 Transcribed Document [facility] [place] [facility] [place] [address] ProviderCaroline MD [facility] [place] [address] Social History Tobacco Use Types [...] Note - Caroline Yang MD - 05/01/2018 9:07 AM RN SURGICAL Patient Education Materials Follows: Transurethral Resection of the Prostate Transurethral resection of the prostate (TURP) is the removal (resection) of part of the gland that produces semen (prostate gland). This procedure is done to treat benign prostatic hyperplasia (BPH). BPH is an abnormal, noncancerous (benign) increase in the number of cells that make up the prostate tissue. BPH causes the prostate to get bigger. The enlarged prostate can push against or block the tube that drains urine from the bladder out of the body (urethra). BPH can affect normal urine flow by causing bladder infections, difficulty controlling bladder function, and difficulty emptying the bladder. The goal of TURP is to remove enough prostate tissue to allow for a normal flow of urine. In a transurethral resection, a thin telescope with a light, a tiny camera, and an electric cutting edge (resectoscope) is passed through the urethra and into the prostate. The opening of the urethra is at the end of the penis. Tell a health care provider about: ??? Any allergies you have. ??? All medicines you are taking, including vitamins, herbs, eye drops, creams, and vhiv-kds-jrljxtq medicines. ??? Any problems you or family members have had with anesthetic medicines. ??? Any blood disorders you have. ??? Any surgeries you have had. ??? Any medical conditions you have. ??? Any prostate infections you have had. What are the risks? Generally, this is a safe procedure. However, problems may occur, including: ??? Infection. ??? Bleeding. ??? Allergic reactions to medicines. ??? Damage to other structures or organs, such as: ? The urethra. ? The bladder. ? Muscles that surround the prostate. ??? Difficulty getting an erection. ??? Difficulty controlling urination (incontinence). ??? Scarring, which may cause problems with urine flow. What happens before the procedure? Follow instructions from your health care provider about eating or drinking restrictions. ??? Ask your health care provider about: ? Changing or stopping your regular medicines. This is especially important if you are taking diabetes medicines or blood thinners. ? Taking medicines such as aspirin and ibuprofen. These medicines can thin your blood. Do not take these medicines before your procedure if your health care provider instructs you not to. ??? You may have a physical exam. ??? You may have a blood or urine sample taken. ??? You may be given antibiotic medicine to help prevent infection. ??? Ask your health care provider how your surgical site will be marked or identified. ??? Plan to have someone take you home after the procedure. You may not be able to drive for up to 10 days after your procedure. What happens during the procedure? To reduce your risk of infection: ? Your health care team will wash or sanitize their hands. ? Your skin will be washed with soap. ??? An IV tube will be inserted into one of your veins. ??? You will be given one or more of the following: ? A medicine to help you relax (sedative). ? A medicine to make you fall asleep (general anesthetic). ? A medicine that is injected into your spine to numb the area below and slightly above the injection site (spinal anesthetic). ??? Your legs will be placed in foot rests (stirrups) so that your legs are apart and your knees are bent. ??? The resectoscope will be passed through your urethra to your prostate. ??? Parts of your prostate will be resected using the cutting edge of the resectoscope. ??? The resectoscope will be removed. ??? A thin, flexible tube (catheter) will be passed through your urethra and into your bladder. The catheter will drain urine into a bag outside of your body. ? Fluid may be passed through the catheter to keep the catheter open. The procedure may vary among health care providers and hospitals. What happens after the procedure? Your blood pressure, heart rate, breathing rate, and blood oxygen level will be monitored often until the medicines you were given have worn off. ??? You may continue to receive fluids and medicines through an IV tube. ??? You may have some pain. Pain medicine will be available to help you. ??? You will have a catheter draining your urine. ? You may have blood in your urine. Your catheter may be kept in until your urine is clear. ? Your urinary drainage will be monitored. If necessary, your bladder may be rinsed out (irrigated) through your catheter. ??? You will be encouraged to walk around as soon as possible. ??? You may have to wear compression stockings. These stockings help prevent blood clots and reduce swelling in your legs. ??? Do notdrive for 24 hours if you received a sedative. This information is not intended to replace advice given to you by your health care provider. Make sure you discuss any questions you have with your health care provider. Document Released: 04/08/2006 Document Revised: 12/09/2016 Document Reviewed: 12/29/2015 [employer] Interactive Patient Education ? 2017 [employer] Pharmacology General Anesthesia, Adult, Care After These instructions provide you with information about caring for yourself after your procedure. Your health care provider may also give you more specific instructions. Your treatment has been planned according to current medical practices, but problems sometimes occur. Call your health care provider if you have any problems or questions after your procedure. What can I expect after the procedure? After the procedure, it is common to have: ??? Vomiting. ??? A sore throat. ??? Mental slowness. It is common to feel: ??? Nauseous. ??? Cold or shivery. ??? Sleepy. ??? Tired. ??? Sore or achy, even in parts of your body where you did not have surgery. Follow these instructions at home: For at least 24 hours after the procedure:??? Do not: ? Participate in activities where you could fall or become injured. ? Drive. ? Use heavy machinery. ? Drink alcohol. ? Take sleeping pills or medicines that cause drowsiness. ? Make important decisions or sign legal documents. ? Take care of children on your own. ??? Rest. Eating and drinking ??? If you vomit, drink water, juice, or soup when you can drink without vomiting. ??? Drink enough fluid to keep your urine clear or pale yellow. ??? Make sure you have little or no nausea before eating solid foods. ??? Follow the diet recommended by your health care provider. General instructions ??? Have a responsible adult stay with you until you are awake and alert. ??? Return to your normal activities as told by your health care provider. Ask your health care provider what activities are safe for you. ??? Take ilqf-vub-tkkgipu and prescription medicines only as told by your health care provider. ??? If you smoke, do not smoke without supervision. ??? Keep all follow-up visits as told by your health care provider. This is important. Contact a health care provider if: ??? You continue to have nausea or vomiting at home, and medicines are not helpful. ??? You cannot drink fluids or start eating again. ??? You cannot urinate after 8?12 hours. ??? You develop a skin rash. ??? You have fever. ??? You have increasing redness at the site of your procedure. Get help right away if: ??? You have difficulty breathing. ??? You have chest pain. ??? You have unexpected bleeding. ??? You feel that you are having a life-threatening or urgent problem. This information is not intended to replace advice given to you by your health care provider. Make sure you discuss any questions you have with your health care provider. Document Released: 07/15/2001 Document Revised: 09/10/2016 Document Reviewed: 03/22/2016 Else[employer] Interactive Patient Education ? 2017 [employer] documented in this encounter Plan of Treatment Not on file documented as of this encounter Visit Diagnoses Not on filedocumented in this encounter
--- OUTSIDE RECORDS SUMMARY | 2025-02-09 15:05 | XMS_ITS | Encounter Summary ---
Author Organization [employer] ([place], [place], [place], [place]) Address [address] [place] [address] Care Team Providers Care Office Service Coordinator Name Role Phone Unavailable Primary Care Provider Unavailabl e Encounter Details Date Type Department Care Team (Late st Contact Info) Description 05/01/2018 Transcribed Document [facility] [place] [facility] [place] [address] ProviderCaroline MD [address] [place] [address] Social History Tobacco Use Types [...] Caroline Yang MD - 05/01/2018 7:41 AM LICENSED OCCUPATIONAL THERAPY ASSISTANT [facility] Main OR PostOp Summary Primary Physician: NORA MACHUCA JR, MD-URO Finalized Date/Time: 05/01/18 10:11:54 Pt. Name: JOHNYOIris LABOY D.O.B./Sex: 1950 Male Med Rec #: [id number] Physician: NORA MACHUCA JR, MD-URO Financial #: [id number] Pt. Type: O Room/Bed: /1 Admit/Disch: 05/01/18 05:38:00 - Institution: [facility] Main OR PostOp Case Times Entry 1 In PACU II 05/01/18 09:08:00 Ready for PACU II 05/01/18 10:03:00 Discharge Discharge from PACU 05/01/18 10:03:00 II Last Modified By: ROYCE LEACH RN 05/01/18 10:11:52 Finalized By: ROYCE LEACH RN Document Signatures Signed By: ROYCE LEACH RN 05/01/18 10:11 Electronically signed by Inocencio [facility] Conversion Vaccine Specialist Cerner at 08/05/2022 11:07 PM CDT documented in this encounter Plan of Treatment Not on file documented as of this encounter Visit Diagnoses Not on filedocumented in this encounter
--- OUTSIDE RECORDS SUMMARY | 2025-02-09 15:05 | XMS_ITS | Encounter Summary ---
Author Organization [employer] ([place], [place], [place], [place]) Address [address] [place] [address] Care Team Providers Care Resource Agent Name Role Phone Unavailable Primary Care Provider Unavailabl e Encounter Details Date Type Department Care Team (Late st Contact Info) Description 05/01/2018 Transcribed Document [facility] [place] [facility] [place] [address] ProviderCaroline MD [address] [place] [id number] Social History Tobacco Use Types Packs/Day Years Used Date Smoking Tobacco: Never Assessed Sex and Gender Information Value Date Recorded Sex Assigned at Male 10/17/2021 8:27 PM CDT Legal Sex Male 8:27 PM CDT Gender Identity Male 10/17/2021 8:27 PM CDT Sexual Orientation Not on file documented as of this encounter Miscellaneous Notes * Cerner Conversion Note - Caroline ProviderMD - 05/01/2018 9:00 AM GLUE COOK Discharge Instructions Entered On: 05/01/2018 9:06 EST Performed On: 05/01/2018 9:00 EST by ROYCE LEACH RN DC Instructions HWD Stroke/TIA Discharge Ins : N/A Heart Failure Discharge Ins : N/A Warfarin Discharge Ins : N/A Diet After Discharge : Resume usual diet as tolerated Activity After Discharge : As tolerated, Rest and relax today, No strenuous activities Driving After Discharge : Do not drive Showering/Bathing : May shower Wound/Incision Care After Discharge : Keep operative site/wound site clean and dry Wound/Incision Care At Discharge Comment cision Care At Discharge Comment : call for any problems with temp over 101, redness or swelling or pus like drainage or inability to pass urine through cath. Special Instructions : call for any problems Patient to return Saturday for voiding trial ROYCE LEACH RN - 05/01/2018 9:00 EST Electronically signed by Inocencio, [facility] Conversion Wind Turbine Performance Engineer Cerner at 08/05/2022 11:24 PM CDT documented in this encounter Plan of Treatment Not on file documented as of this encounter Visit Diagnoses Not on filedocumented in this encounter
--- OUTSIDE RECORDS SUMMARY | 2025-02-09 15:05 | XMS_ITS | Encounter Summary ---
Author Organization [employer] ([place], [place], [place], [place]) Address [address] [place] [address] Care Team Providers Care Platform Mill Supervisor Name Role Phone Unavailable Primary Care Provider Unavailabl e Encounter Details Date Type Department Care Team (Late st Contact Info) Description 05/01/2018 Transcribed Document [facility] [place] [facility] [place] [address] ProviderCaroline MD [address] [place] [address] Social History Tobacco Use Types [...] Caroline Yang MD - 05/01/2018 7:41 AM HOME PARAPROFESSIONAL [facility] Main OR Preop Summary Primary Physician: NORA MACHUCA JR, MD-URO Finalized Date/Time: 05/01/18 12:06:08 Pt. Name: JOHNYOIris Mustafa/Sex: 1950 Male Med Rec #: [id number] Physician: NORA MACHUCA JR, MD-URO Financial #: [id number] Pt. Type: O Room/Bed: /1 Admit/Disch: 05/01/18 05:38:00 - Institution: [facility] PreOp Case Times Entry 1 In Preop 05/01/18 05:38:00 Ready for Holding n/a Room Patient Ready for 05/01/18 07:00:00 Surgery Patient Out of Preop 05/01/18 07:21:00 Patient Out of n/a Holding Room Last Modified By: JUANY GARCIA RN 05/01/18 12:06:05 [facility] PreOp Case Times Audit 05/01/18 12:06:05 Paster Hat Lining: ELENA Modifier: SILVESTREAJITHJuan Pablo <+> 1 Patient Out of Preop Finalized By: JUANY GARCIA, RN Document Signatures Signed By: JUANY GARCIA RN 05/01/18 12:06 Electronically signed by Inocencio [facility] Conversion Dinkey Locomotive Operator Cerner at 08/05/2022 11:28 PM CDT documented in this encounter Plan of Treatment Not on file documented as of this encounter Visit Diagnoses Not on filedocumented in this encounter
--- OUTSIDE RECORDS SUMMARY | 2025-02-09 15:05 | XMS_ITS | Clinical Summary ---
Author Organization [facility] Address [address] [place] [address] Care Team Providers Care Network Professional Name Role Phone Nikolas Maciel MD Primary [...] Screening 1950 [facility]-Medicare Annual Wellness (AWV) 1950 [facility]-Infant/Child/Adol SDOH Screenings 1950 [facility]-Obesity Intervention 12/25/1955 [facility]- SDOH Screenings 12/25/1967 [facility]-Adult SDOH Screenings 12/25/1967 [facility]-DTaP,Tdap,and Td Vaccines (1 - Tdap) 1968 CT Colonography 1994 FIT-DNA 1994 FIT 1994 FOBT 1994 Sigmoidoscopy 1994 [facility]-Pneumococcal Vaccine: 50+ Years (1 of 1 - PCV) 12/25/1999 [facility]-Zoster Vaccines (1 of 2) 12/25/1999 [id number] Vaccine ( season) 2024 02/12/2024, 02/13/2023, 02/15/2022, [...] Health Maintenance Insurance MEDICARE [employer] Care Teams Network Professional Relationship Specialty Start Date End Date Nikolas Maciel MD [address] [place] [address] PCP - General 09/02/20
--- OUTSIDE RECORDS SUMMARY | 2025-02-09 15:05 | XMS_ITS | Encounter Summary ---
Author Organization [employer] ([place], [place], [place], [place]) Address [address] [place] [address] Care Team Providers Care Liquefied Petroleum Gasfitter Name Role Phone Unavailable Primary Care Provider Unavailabl e Encounter Details Date Type Department Care Team (Late st Contact Info) Description 04/30/2018 Transcribed Document [facility] [place] [facility] [place] [address] ProviderCaroline MD [address] [place] [address] Social History Tobacco Use Types Packs/Day Years Used Date Smoking Tobacco: Never Assessed Sex and Gender Information Value Date Recorded Sex Assigned at Male 10/17/2021 8:27 PM CDT Legal Sex Male 8:27 PM CDT Gender Identity Male 10/17/2021 8:27 PM CDT Sexual Orientation Not on file documented as of this encounter Miscellaneous Notes * Cerner Conversion Note - Caroline ProviderMD - 04/30/2018 2:01 PM DENIAL RESOLUTION SPECIALIST PAT Adult Entered On: 04/30/2018 14:10 EST Performed On: 04/30/2018 14:01 EST by GONZALEZ CONDE RN Height and Weight, Clinical Dosing Height Source : Measured Height Entry Format : Mears Height, Feet : 0 ft(Converted to: 0 cm, 0 Inch) Height, Inches : 70 Inch(Converted to: 5 ft 10 Inch, 177.80 cm) Clinical Height : 177.8 cm Weight Source : Standing scale Weight Entry Format : Mears Clinical Dosing Weight : 105.36 kg Weight, Pounds : 231.8 lb Body Surface Area (BSA) : 2.22 m2 Body Mass Index : 33.3 kg/m2 (HI) Sterling Body Weight : 72 kg JUANY GARCIA RN - 05/01/2018 6:21 EST Health Histories Smoking Status : Never (less than 100 in lifetime; none in last 30 days) Smokeless Tobacco Status : Never JUANY GARCIA RN - 05/01/2018 6:29 EST Social History (As Of: 05/01/2018 06:30:36 EST) Tobacco: Never (less than 100 in lifetime) Smoking Status. Never Smokeless Tobacco Status. (Last Updated: 05/01/2018 06:29:27 EST by JUANY GARCIA, RN) Alcohol: Alcohol Use History No. (Last Updated: 05/01/2018 06:29:32 EST by JUANY GARCIA, RN) Substance Abuse: Drug Use Hx: No. (Last Updated: 05/01/2018 06:29:38 EST by JUANY GARCIA, MILY) Infectious Disease History Infectious Disease History : Chicken pox/Shingles, Measles, Mumps Fever/Chills Last 48 Hours : No Travel To Regions with Travel Advisories : No Travel Outside [place] Within Last 30 Days : No Contact With Traveler to Advisory Region : No Tuberculosis Symptoms : None JUANY GARCIA RN - 05/01/2018 6:29 EST Anesthesia/Transfusion History Transfusion History : Prior anesthesia without reaction Family History of Anesthesia Reaction : None JUANY GARCIA RN - 05/01/2018 6:30 EST Family History of Anesthesia Reaction : No prior transfusion(s) JUANY GARCIA RN - 05/01/2018 6:29 EST Functional Assessment Functional ADL Evaluation Index EBN Bathing : Independent (2) Dressing : Independent (2) Toileting : Independent (2) Transferring Bed or Chair : Independent (2) Continence : Independent (2) Feeding : Independent (2) JUANY GARCIA RN - 05/01/2018 6:30 EST ADL Index Score : 12 JUANY GARCIA RN - 05/01/2018 6:30 EST Advance Directive Patient has Advance Directive *Q : Yes, Advance Directive not with the patient Advance Directive Type : Living will Copy Advance Directive Verified/on Chart : No JUANY GARCIA RN - 05/01/2018 6:30 EST Psychosocial History Do You Have a History of the Following? : Patient denies history Currently in Unsafe Situation : No Tried to Harm Yourself in the Past? : No Thoughts of Harming/Killing Yourself : No JUANY GARCIA RN - 05/01/2018 6:30 EST Teaching/Learning Assessment Barriers To Learning : None evident JUANY GARCIA RN - 05/01/2018 6:30 EST Education Topics, Periop Preadmission Perioperative Education Grid NPO Status/Directions : Verbalizes understanding Pain Management : Verbalizes understanding Responsible Adult : Verbalizes understanding JUANY GARCIA RN - 05/01/2018 6:30 EST General Info Arrived From : Home Legal Guardian : Spouse Want Family/Rep/Phys Notified of Admit : No Emergency Contact #1 : Ana Luisa Wills Emergency Contact #1 Emergency Contact #1 Relationship : SPOUSE Emergency Contact #2 : . Emergency Contact #2 Phone Number : . Emergency Contact #2 Relationship : . Chief Complaint : prostate procedure Information Obtained From : Patient Primary Language : Lao Communication Barrier : None Objects to Sharing Info w Family : No JUANY GARCIA RN - 05/01/2018 6:30 EST Hardik Scale Hardik Sensory Perception : No impairment Hardik Moisture : Occasionally moist Hardik Activity : Walks occasionally Hardik Mobility : No limitation Hardik Nutrition : Adequate Hardik Friction and Shear : Potential problem Hardik Scale Comment : Pt has FC, requested leg bag removal. Has depends on, urine leaking thru and around catheter Hardik Score : 19 JUANY GARCIA RN - 05/01/2018 6:30 EST Sleep Apnea Risk Assmt Hx of Obstructive Sleep Apnea Diagnosis : Yes BiPAP/CPAP Ordered for Home Use : No GONZALEZ CONDE RN - 04/30/2018 14:01 EST documented in this encounter Plan of Treatment Not on file documented as of this encounter Visit Diagnoses Not on filedocumented in this encounter
--- OUTSIDE RECORDS SUMMARY | 2025-02-09 15:05 | XMS_ITS | Referral Summary ---
Author Organization [employer] ([place], [place], [place], [place]) Address [address] [place] [address] Care Team Providers Care Bass Mechanism Maker Name Role Phone Unavailable Primary Care Provider Unavailabl e Social History Tobacco Use Types Packs/Day Years Used Date Smoking Tobacco: Never Assessed Sex and Gender Information Value Date Recorded Sex Assigned at Male 10/17/2021 8:27 PM CDT Legal Sex Male 8:27 PM CDT Gender Identity Male 10/17/2021 8:27 PM CDT Sexual Orientation Not on file Plan of Treatment Not on file
--- OUTSIDE RECORDS SUMMARY | 2025-02-09 15:05 | XMS_ITS | Clinical Summary ---
[facility] Address [address] [place] [id number] Care Team Providers Care Film Painter Name Role Phone Nikolas Maciel MD Primary Care Provid er Allergies [...] Moviprep. Follow instructions provided by Office. Call [phone] with questions. 354 mL 4 Active Social [...] , 02/08/2022, Additional history exists COVID-19 Vaccine (6 - Modern a risk season) 2024 02/12/2024, 02/13/2023, 02/15/2022, Additional history [...] Payer (Ef fective 2014-Present) Name:Aldo Wills Member ID:[id number] Relation to Subscriber:Self Name:Aldo Wills Subscriber ID:[id number] Payer ID:[id number] Group ID:Not on file Type:Not on file Address: [address] [facility] Care Teams Film Painter Relationship Specialty Start Date End Date Nikolas Maciel MD [address] [place], [place] [id number] PCP - General Family Medicine 05/08/16
--- OUTSIDE RECORDS SUMMARY | 2025-02-09 15:05 | XMS_ITS | Encounter Summary ---
Author Organization [facility] ([place], [place], [place], [place]) Address [address] [place] [address] Care Team Providers Care Wheel Truer Name Role Phone Unavailable Primary Care Provider Unavailabl e Encounter Details Date Type Department Care Team (Late st Contact Info) Description 05/01/2018 Transcribed Document [facility] [place] Medicine [facility] [place] [address] ProviderCaroline MD [facility] [place] [address] Social History Tobacco Use Types [...] Caroline Yang MD - 05/01/2018 9:07 AM FOOD SERVICE [address] [place] [address] Patient Copy Patient Information: Name: ALDO LOPEZ Current Date: 05/01/2018 09:07:14 : 1950 Patient Address: [address] [place] [id number] Patient Attending Physician: NORA MACHUCA JR, MD-URO Primary Care Provider: JONAS, NOT LISTED Primary Care Provider Phone: Discharge Diagnosis: Weight on Admission: 231 lb, 13 oz Comment: Follow-up Instructions: With: Address: When: NORA MACHUCA JR [address] [place] [address], [address] [place] [address] Business (1) Within 2 to 3 days Discharge Instructions: Diet after Discharge: Resume usual diet as tolerated Activity after Discharge: As tolerated, Rest and relax today, No strenuous activities Driving after Discharge: Do not drive Showering/Bathing:May shower Wound/Incision Care after Discharge: Keep operative site/wound site clean and dry Wound/Incision Care after Discharge Comment: call for any problems with temp over 101, redness or swelling or pus like drainage or inability to pass urine through cath. Immunizations Documented During Stay: No Immunizations Found Special Instructions: call for any problems Patient to return Saturday for voiding trial Heart Failure Discharge Instructions (if any): Stroke Related Discharge Instructions (if any): Warfarin Related Discharge Instructions (if any): Final Medication List: Printed Prescriptions acetaminophen-hydrocodone (Augusta 7.5 mg-325 mg oral tablet) 1 Tablet(s) Oral Every 4 Hours as needed as needed for pain. Refills: 0. docusate (Colace 100 mg oral capsule) 1 Capsule(s) Oral Two Times A Day. Refills: 0. Other Medications carvedilol (Coreg 25 mg oral tablet) 1 Tablet(s) Oral Two Times A Day. ciprofloxacin (Cipro 500 mg oral tablet) 1 Tablet(s) Oral every 12 hours. minoxidil (minoxidil 10 mg oral tablet) 1 Tablet(s) Oral Two Times A Day. sildenafil (Viagra 100 mg oral tablet) 1 Tablet(s) Oral Every Day as needed for erectile dysfunction. simvastatin (simvastatin 40 mg oral tablet) 1 Tablet(s) Oral At Bedtime. tamsulosin 0.4 Milligram(s) Oral Every Day. Patient Allergies: No Known Medication Allergies Medication Instructions: Take your medications faithfully. Do NOT skip medication. Do NOT stop taking medications without the direction of a physician. Carry a list of your medications with you at all times, and take this medication list with you to your first follow up visit. Report any side effects. Avoid herbal remedies unless discussed with your physician. As part of your treatment plan, your physician may have prescribed a limited course of a controlled substance. This medication may be given to help people with moderate or severe pain or for other medical conditions, but there are risks involved with treatment. Common side effects may include nausea, constipation, drowsiness, sweating, itching, dry mouth, and rash. More serious side effects may include cognitive and motor impairment, like problems with thinking, concentrating, alertness, and movement (e.g. slowed reflexes), and driving and operating heavy machinery can be dangerous. It is important for you to talk to your physician if you have these side effects or questions. These controlled substances can produce physical dependence and be habit-forming if taken for an extended period of time, which means that the body has gotten used to them and may experience withdrawal symptoms if they are abruptly stopped. Withdrawal symptoms can include runny nose, sweating, goose bumps, diarrhea, abdominal cramping, rapid heartbeat, difficulty sleeping, and nervousness. Patient education materials: Transurethral Resection of the Prostate Transurethral resection [...] including vitamins, herbs, eye drops, creams, and fycy-hqh-cmhuvgy medicines. ??? Any problems you or family [...] 04/08/2006 Document Revised: 12/09/2016 Document Reviewed: 12/29/2015 [employer] Patient Education ? 2017 [employer] General Anesthesia, Adult, Care After These instructions [...] activities are safe for you. ??? Take ttvn-yoe-tpysphx and prescription medicines only as told by [...] 07/15/2001 Document Revised: 09/10/2016 Document Reviewed: 03/22/2016 [employer] Interactive Patient Education ? 2017 [employer]. Medication Leaflets: acetaminophen and hydrocodone (a SEET a MIN oh fen and nancy droe KOE done) Hycet, Lorcet, Augusta, Verdrocet, Vicodin, Xodol, Zamicet What is the most important information I should know about acetaminophen and hydrocodone? MISUSE OF OPIOID MEDICINE CAN CAUSE ADDICTION, OVERDOSE, OR . Keep the medication in a place where others cannot get to it. An overdose of acetaminophen can damage your liver or cause . Call your doctor at once if you have pain in your upper stomach, loss of appetite, dark urine, or jaundice (yellowing of your skin or eyes). Taking opioid medicine during may cause life-threatening withdrawal symptoms in the . Fatal side effects can occur if you use opioid medicine with alcohol, or with other drugs that cause drowsiness or slow your breathing. Stop taking this medicine and call your doctor right away if you have skin redness or a rash that spreads and causes blistering and peeling. What is acetaminophen and hydrocodone? Hydrocodone is an opioid pain medication, sometimes called a narcotic. Acetaminophen is a less potent pain reliever that increases the effects of hydrocodone. Acetaminophen and hydrocodone is a combination medicine used to relieve moderate to severe pain. Acetaminophen and hydrocodone may also be used for purposes not listed in this medication guide. What should I discuss with my healthcare provider before taking acetaminophen and hydrocodone? You should not use this medicine if you are allergic to acetaminophen or hydrocodone, or if you have: ? severe asthma or breathing problems; or ?? a blockage in your stomach or intestines. Tell your doctor if you have ever had: ? liver disease; ?? a drug or alcohol addiction; ?? kidney disease; ?? a head injury or seizures; ?? urination problems; or ?? problems with your thyroid, pancreas, or gallbladder. If you use opioid medicine while you are , your baby could become dependent on the drug. This can cause life-threatening withdrawal symptoms in the baby after it is born. Babies born dependent on opioids may need medical treatment for several weeks. Do not breast-feed. This medicine can pass into breast milk and cause drowsiness, breathing problems, or in a nursing baby. How should I take acetaminophen and hydrocodone? Follow all directions on your prescription label. Never take this medicine in larger amounts, or for longer than prescribed. An overdose can damage your liver or cause . Tell your doctor if the medicine seems to stop working as well in relieving your pain. Always check your bottle to make sure you have received the correct pills (same brand and type) of medicine prescribed by your doctor. Never share this medicine with another person, especially someone with a history of drug abuse or addiction. MISUSE CAN CAUSE ADDICTION, OVERDOSE, OR . Keep the medicine in a place where others cannot get to it. Selling or giving away acetaminophen and hydrocodone is against the law. Measure liquid medicine carefully. Use the dosing syringe provided, or use a medicine dose-measuring device (not a kitchen spoon). If you need surgery or medical tests, tell the doctor ahead of time that you are using this medicine. You should not stop using this medicine suddenly. Follow your doctor's instructions about tapering your dose. Store at room temperature away from moisture and heat. Keep track of your medicine. You should be aware if anyone is using it improperly or without a prescription. Do not keep leftover opioid medication. Just one dose can cause in someone using this medicine accidentally or improperly. Ask your pharmacist where to locate a drug take-back disposal program. If there is no take-back program, flush the unused medicine down the toilet. What happens if I miss a dose? Since this medicine is used for pain, you are not likely to miss a dose. Skip any missed dose if it is almost time for your next dose. Do not use two doses at one time. What happens if I overdose? Seek emergency medical attention or call the Poison Help line at . An overdose of acetaminophen and hydrocodone can be fatal. The first signs of an acetaminophen overdose include loss of appetite, nausea, vomiting, stomach pain, sweating, and confusion or weakness. Later symptoms may include pain in your upper stomach, dark urine, and yellowing of your skin or the whites of your eyes. Overdose can also cause severe muscle weakness, pinpoint pupils, very slow breathing, extreme drowsiness, or coma. What should I avoid while taking acetaminophen and hydrocodone? Avoid driving or operating machinery until you know how this medicine will affect you. Dizziness or drowsiness can cause falls, accidents, or severe injuries. Do not drink alcohol. Dangerous side effects or could occur. Ask a doctor or pharmacist before using any other medicine that may contain acetaminophen (sometimes abbreviated as APAP). Taking certain medications together can lead to a fatal overdose. What are the possible side effects of acetaminophen and hydrocodone? Get emergency medical help if you have signs of an allergic reaction: hives; difficulty breathing; swelling of your face, lips, tongue, or throat. Opioid medicine can slow or stop your breathing, and may occur. A person caring for you should seek emergency medical attention if you have slow breathing with long pauses, blue colored lips, or if you are hard to wake up. In rare cases, acetaminophen may cause a severe skin reaction that can be fatal. This could occur even if you have taken acetaminophen in the past and had no reaction. Stop taking this medicine and call your doctor right away if you have skin redness or a rash that spreads and causes blistering and peeling. Call your doctor at once if you have: ? noisy breathing, sighing, shallow breathing; ?? a light-headed feeling, like you might pass out; ?? liver problems--nausea, upper stomach pain, tiredness, loss of appetite, dark urine, yamilte-colored stools, jaundice (yellowing of the skin or eyes); or ?? low cortisol levels-- nausea, vomiting, loss of appetite, dizziness, worsening tiredness or weakness. Seek medical attention right away if you have symptoms of serotonin syndrome, such as: agitation, hallucinations, fever, sweating, shivering, fast heart rate, muscle stiffness, twitching, loss of coordination, nausea, vomiting, or diarrhea. Serious side effects may be more likely in older adults and those who are overweight, malnourished, or debilitated. Long-term use of opioid medication may affect fertility (ability to have children) in men or women. It is not known whether opioid effects on fertility are permanent. Common side effects include: ? dizziness, drowsiness, feeling tired; ?? nausea, vomiting, stomach pain; ?? constipation; or ?? headache. This is not a complete list of side effects and others may occur. Call your doctor for medical advice about side effects. You may report side effects to FDA at 3-384-VMT-7539. What other drugs will affect acetaminophen and hydrocodone? You may have breathing problems or withdrawal symptoms if you start or stop taking certain other medicines. Tell your doctor if you also use an antibiotic, antifungal medication, heart or blood pressure medication, seizure medication, or medicine to treat HIV or hepatitis C. Opioid medication can interact with many other drugs and cause dangerous side effects or . Be sure your doctor knows if you also use: ? cold or allergy medicines, bronchodilator asthma/COPD medication, or a diuretic ('water pill'); ?? medicines for motion sickness, irritable bowel syndrome, or overactive bladder; ?? other narcotic medications--opioid pain medicine or prescription cough medicine; ?? a sedative like Valium--diazepam, alprazolam, lorazepam, Xanax, Klonopin, Versed, and others; ?? drugs that make you sleepy or slow your breathing--a sleeping pill, muscle relaxer, medicine to treat mood disorders or mental illness; ?? drugs that affect serotonin levels in your body--a stimulant, or medicine for depression, Parkinson's disease, migraine headaches, serious infections, or nausea and vomiting. This list is not complete. Other drugs may affect acetaminophen and hydrocodone, including prescription and ybxz-cio-suklhpp medicines, vitamins, and herbal products. Not all possible interactions are listed here. Where can I get more information? Your doctor or pharmacist can provide more information about acetaminophen and hydrocodone. Remember, keep this and all other medicines out of the reach of children, never share your medicines with others, and use this medication only for the indication prescribed. Every effort has been made to ensure that the information provided by [employer]. [employer]') is accurate, up-to-date, and complete, but no guarantee is made to that effect. Drug information contained herein may be time sensitive. [employer] information has been compiled for use by healthcare practitioners and consumers in the [place] and therefore [employer] does not warrant that uses outside of the [place] are appropriate, unless specifically indicated otherwise. [employer]'s drug information does not endorse drugs, diagnose patients or recommend therapy. [employer] drug information is an informational resource designed to assist licensed healthcare practitioners in caring for their patients and/or to serve consumers viewing this service as a supplement to, and not a substitute for, the expertise, skill, knowledge and judgment of healthcare practitioners. The absence of a warning for a given drug or drug combination in no way should be construed to indicate that the drug or drug combination is safe, effective or appropriate for any given patient. [employer] does not assume any responsibility for any aspect of healthcare administered with the aid of information [employer] provides. The information contained herein is not intended to cover all possible uses, directions, precautions, warnings, drug interactions, allergic reactions, or adverse effects. If you have questions about the drugs you are taking, check with your doctor, nurse or pharmacist. Copyright 2292-4305 [employer]. Version: 15.02. Revision Date: 02/24/2018. CIGARETTE SMOKING: The facts are clear, cigarette smoking will shorten your life. Smoking can cause many illnesses along the way. As a healthcare provider, we recommend that you stop smoking. Assistance with quitting is available by contacting 9-900-LXZL-NOW. This is a free resource providing counseling, support, and referral. Or you may contact your personal physician. STROKE is an EMERGENCY [employer] ACT F.A.S.T! FACE ?? Facial droop ?? Uneven smile ARM ?? Arm numbness ?? Arm weakness SPEECH ?? Slurred speech ?? Difficulty speaking or understanding TIME ?? Call 911 and get to the hospital immediately Have the ambulance go to the nearest stroke center. STROKE Risk Factors High blood pressure High cholesterol Heart Disease Diabetes Smoking Heavy alcohol use Physical inactivity and obesity Atrial Fibrillation (irregular heartbeat) Family history of stroke Reminder: Be sure to sign up for the [employer] patient portal, which gives you 12/11 access to your medical information ??? including these discharge instructions ??? using your computer, smartphone, or tablet. Just go to [employer] to get started. Questions? Call . [facility] would like to thank you for allowing us to assist you with your healthcare needs. JOHN Bond KENNETH RAY, (or authorization representative) have received the above patient education materials/instructions and have verbalized understanding: Patient Signature _ Date/Time Patient Liquor Inspector Signature (if needed) Date/Time Clinician/Hospital Liquor Inspector Signature (if needed) Date/Time documented in this encounter Plan of Treatment Not on file documented as of this encounter Visit Diagnoses Not on filedocumented in this encounter
--- OUTSIDE RECORDS SUMMARY | 2025-02-09 15:05 | XMS_ITS | Encounter Summary ---
Author Organization [employer] ([place], [place], [place], [place]) Address [address] [place] [address] Care Team Providers Care Health And Safety Inspector Name Role Phone Unavailable Primary Care Provider Unavailabl e Encounter Details Date Type Department Care Team (Late st Contact Info) Description 05/01/2018 Transcribed Document [facility] [place] [facility] [place] [address] ProviderCaroline MD [address] [place] [address] Social History Tobacco Use Types [...] Caroline Yang MD - 05/01/2018 7:41 AM MILK AND CREAM GRADER [facility] Main OR IntraOp Summary Primary Physician: NORA MACHUCA JR, MD-URO Finalized Date/Time: 05/04/18 16:19:19 Pt. Name: ALEKSANDR LOPEZ BENOIT GutiérrezB./Sex: 1950 Male Med Rec #: [id number] Physician: NORA MACHUCA JR, MD-URO Financial #: [id number] Pt. Type: O Room/Bed: /1 Admit/Disch: 05/01/18 05:38:00 - 05/01/18 10:03:00 Institution: [facility] IntraOp Case Attendance Entry 1 Entry 2 Entry 3 Case Attendee NORA MACHUCA JR, BOWEN, JON B, MD VON KUSTER, MARIE MD-HELEN HOOD CRNA Role Performed Surgeon/Proceduralist, Anesthesiologist of FILAMENT MAKER/Nurse Search Engine Optimization Strategist First Record Time In 05/01/18 07:24:00 05/01/18 07:24:00 05/01/18 07:24:00 Time Out 05/01/18 08:14:00 05/01/18 08:14:00 05/01/18 08:14:00 Procedure Prostate Transurethral Prostate Transurethral Prostate Transurethral Resection Resection Resection Other Attendee Superficial Wound Closed By: Last Modified By: Shannan Busby, Shannan Nath RN Poff, Janie, RN 05/01/18 08:24:06 05/01/18 08:24:06 05/01/18 08:24:06 Entry 4 Entry 5 Entry 6 Case Attendee Shannan Busby, DEIDRE MRAY ROBERT, RN Role Performed Software Configuration Specialist, First Scrub, First Scrub, Second Time In 05/01/18 07:24:00 05/01/18 07:24:00 05/01/18 07:24:00 Time Out 05/01/18 08:14:00 05/01/18 08:14:00 05/01/18 08:14:00 Procedure Prostate Transurethral Prostate Transurethral Prostate Transurethral Resection Resection Resection Other Attendee Superficial Wound Closed By: Last Modified By: Shannan Busby RN Poff, Janie, RN Poff, Janie, RN 05/01/18 08:24:06 05/01/18 08:24:06 05/01/18 08:24:06 [facility] IntraOp Case Attendance Audit 05/01/18 08:24:06 Record Changer Tester: JIMMY Modifier: JIMMY 1 <+> Time Out 1 <*> Procedure Prostate Transurethral Resection 2 <+> Time Out 2 <*> Procedure Prostate Transurethral Resection 3 <+> Time Out 3 <*> Procedure Prostate Transurethral Resection 4 <+> Time Out 4 <*> Procedure Prostate Transurethral Resection 5 <+> Time Out 5 <*> Procedure Prostate Transurethral Resection 6 <+> Time Out 6 <*> Procedure Prostate Transurethral Resection 05/01/18 08:14:44 Record Changer Tester: JOSE GUADALUPE Modifier: POFFJAN 1 <*> Procedure Prostate Transurethral Resection 2 <+> Time In 2 <*> Procedure Prostate Transurethral Resection 3 <+> Time In 3 <*> Procedure Prostate Transurethral Resection 4 <+> Time In 4 <*> Procedure Prostate Transurethral Resection 5 <+> Time In 5 <*> Procedure Prostate Transurethral Resection 6 <+> Time In 6 <*> Procedure Prostate Transurethral Resection [facility] IntraOp Case Times Entry 1 Patient In Room Time 05/01/18 07:24:00 Out Room Time 05/01/18 08:14:00 Anesthesia Start Time 05/01/18 07:24:00 Stop Time 05/01/18 08:14:00 Surgery / Procedure Times Start Time 05/01/18 07:41:00 Stop Time 05/01/18 08:05:00 Last Modified By: Shannan Busby RN 05/01/18 08:14:55 [facility] IntraOp Case Times Audit 05/01/18 08:14:55 Record Changer Tester: JOSE GUADALUPE Modifier: POFFJAN <+> 1 Out Room Time <+> 1 Stop Time <+> 1 Stop Time [facility] IntraOp Cautery Entry 1 ESU Identification Cautery Type Other ID Number [id number] ID Type Hospital Number Cautery Settings ESU Grounding Pad Grounding Pad Site Warm, dry and intact Skin Condition Before Cautery Grounding Pad Site Warm, dry and intact Skin Condition After Cautery Last Modified By: Shannan Busby RN 05/01/18 08:24:02 [facility] IntraOp Cautery Audit 05/01/18 08:24:02 Record Changer Tester: JIMMY Modifier: POFFJAN <+> 1 ID Number [facility] IntraOp Communication Entry 1 Communication To Family/Significant other Comment PROCEDURE START Communication By URSULA CANTU RN Date and Time 05/01/18 07:40:00 Last Modified By: Shannan Busby RN 05/01/18 07:57:29 [facility] IntraOp Departure from OR Entry 1 Integumentary Assessment Integumentary WDL Assessment WDL Transfer/Handoff Transfer to PACU Phase I Handoff Method Phone call Post-op Transport Stretcher/Gurney Via Patient Transport JONAS COOLEY Accompanied by CLARA OHOD, URSULA CANTU RN Last Modified By: Shannan Busby RN 05/01/18 08:14:00 [facility] IntraOp Fire Risk Assessment Entry 1 Fire Info Surgical Site or 0- No Incision Above the Xyphoid Open O2 Source 0- No (Mask or Cannula) Available Ignition 1- Yes (ESU, Laser, Light Source) Fire Risk 1 Assessment Score Fire Score Fire Risk Yes Assessment Complete Fire Risk Shannan Busby RN Assessment Verified By Fire Risk 05/01/18 07:40:00 Assessment Verified Date/Time Fire Risk Standard Fire Yes Safety Precautions Followed Last Modified By: Shannan Busby RN 05/01/18 08:15:36 [facility] IntraOp General Case Foreign Language Stenographer 1 Case Information OR Cysto 01 [facility] Case Level 1 Room Verified Yes Wound Class II - Clean-Contaminated Specialty SN Urology Anesthesia Type General ASA Class 3 Diagnosis Preop Diagnosis BPH WITH LOWER URINARY TRACT SYMPTOMS Postop Same As Preop Yes Postop Diagnosis BPH WITH LOWER URINARY TRACT SYMPTOMS Last Modified By: Shannan Busby RN 05/01/18 08:16:39 [facility] IntraOp General Case Data Audit 05/01/18 08:16:39 Record Changer Tester: DOMINICCATHERINEHIGINIO Modifier: JIMMY <+> 1 Postop Same As Preop <+> 1 Preop Diagnosis <+> 1 Postop Diagnosis [facility] IntraOp Intraoperative Assessment Entry 1 Handoff Method Online nursing summary Valid History / Yes Physical in Chart Preoperative Yes Checklist Reviewed/Evaluated Allergies Reviewed Yes Patient is Latex No Sensitive Isolation Not applicable Precautions Noted Level of WDL Consciousness (WDL = Alert, Oriented to Person, Place, and Time) Skin Assessment Yes Verified Present Upon IVs Arrival to OR Last Modified By: Shannan Busby RN 05/01/18 08:16:55 [facility] IntraOp Intraoperative Equipment Entry 1 Type Monitoring Equipment Intraop Monitoring Electrocardiogram Three lead placement (ECG) Electrode Placement Blood Pressure Non-Invasive BP Device Source Antiembolic Devices Antiembolic Devices Sequential compression device, knee high Antiembolic Device Bilateral Location Antiembolic Device [id number] ID Number Scopes Photo/Video Documentation Photo No Video No Intraop Equipment SEQUENTIAL COMPRESSION Comment DEVICES ON AND IN OPERATION PRIOR TO INDUCTION. Last Modified By: Shannan Busby RN 05/01/18 08:18:04 [facility] IntraOp Medication Admin Entry 1 Entry 2 Medication/Irrigant B&O 16A Suppository - NOEMY IRR NACL 0.9PCT [id number] 3000ML BG --[id number] Combo Med List Time Administered 05/01/18 08:05:00 05/01/18 07:41:00 Route of RECTAL IRRIGATION Administration Dose Dose 60 Unit of Measure mg Volume Administered By NORA MACHUCA JR, Poff, Janie, RN MD-URO Procedure Irrigation Irrigant Volume In 6000 mL Irrigant Volume Out 6000 mL Last Modified By: Shannan Busby RN Poff, Janie, RN 05/01/18 08:21:17 05/01/18 08:21:17 [facility] IntraOp Patient Positioning Entry 1 Procedure Prostate Transurethral Resection Body Position Lithotomy Left Arm Position Resting at side Right Arm Position Resting at side Left Leg Position Secured in Leg Victoria Right Leg Position Secured in Leg [place] Feet Uncrossed Yes Pressure Points Yes Checked Positioning Devices Head Rest, Pad, Elbow, Stirrups/Leg Victoria, Boot, Pad, Elbow, Table, Cysto Positioned By Shannan Busby RN, NORA MACHUCA JR, MD-URO, JONAS COOLEY, CLARA, DEIDRE GRANT, URSULA CANTU RN Position Verified Positioning Yes Verified by Anesthesia Positioning Yes Verified by Surgeon Last Modified By: URSULA CANTU RN 05/01/18 07:52:02 [facility] IntraOp Sign In Entry 1 Patient, Site, Yes Procedure Identified Surgical Consent Yes Confirmed Relevant Surgical Yes Documents Available Surgical Site Yes Marked by person performing procedure Anesthesia Machine Yes Check Completed Medication Checks Yes Completed Allergies Yes Airway Difficult Yes Airway/Aspiration Risk Difficult Yes Airway/Aspiration Intervention Equipment Available Blood Loss Risk Yes Blood Loss Yes Intervention Equipment Prepared and Ready Blood Identifiers Not applicable Verified Per Policy Hypothermia Risk Yes Warming Measures Yes Taken Last Modified By: URSULA CANTU RN 05/01/18 07:46:40 [facility] IntraOp Sign Out Entry 1 RN Confirmation Surgical Yes Procedure(s) Identified Instrument, Sponge Yes and Sharps Counts Correct/Documented Equipment Problems N/A Documented Specimen Labeled Yes Correctly Urinary Catheter Yes Documented in IView Blanca Patient Yes Recovery Concerns Reviewed with Anesthesia Provider, Surgeon and RN Blanca Patient Yes Management Concerns Reviewed with Anesthesia Provider, Surgeon and RN Safety Checklist Yes Elements Complete? RN Sign Out Shannan Busby RN Signature RN Sign Out 05/01/18 08:21:00 Signature Date/Time Plan of Care Outcome - Fire Risk OUTCOME STATEMENT: Goal met Patient is free from injury related to surgical fire Plan of Care Outcome - Pt Positioning OUTCOME STATEMENT: Goal met Absence of signs and symptoms of positioning injury. Plan of Care Outcome - Skin Prep OUTCOME STATEMENT: Goal met Intraoperative care is consistent with measures to prevent infection Plan of Care Outcome - Xray/Images OUTCOME STATEMENT: N/A Absence of observable signs or symptoms of radiation injury Plan of Care Outcome - Counts OUTCOME STATEMENT: Goal met Absence of signs and symptoms of injury related to extraneous objects Last Modified By: Shannan Busby RN 05/01/18 08:21:29 [facility] IntraOp Skin Prep Entry 1 Procedure Prostate Transurethral Resection Prescribed Yes Pre-Surgical Prep Completed Prep Area GENITALIA Intraop Prep Integumentary WDL Assessment WDL Prep Agents Betadine solution Prep by Shannan Busby RN Hair Removal Methods No hair removal performed Last Modified By: Shannan Busby RN 05/01/18 08:21:57 [facility] IntraOp Surgical Procedures Entry 1 Procedure Prostate Transurethral Resection Additional CYSTOSCOPY WITH GYRUS Procedure BUTTON TRANSURETHRAL Description RESECTION OF THE PROSTATE Primary Procedure Yes Primary Surgeon NORA MACHUCA JR, MD-URO Start 05/01/18 07:41:00 Stop 05/01/18 08:05:00 Anesthesia Type General Specialty SN Urology Wound Class II - Clean-Contaminated Last Modified By: Shannan Busby RN 05/01/18 08:22:06 General Comments: CEFOXITIN ADMINISTERED AT 0730 [facility] IntraOp Surgical Procedures Audit 05/01/18 08:22:06 Record Changer Tester: JOSE GUADALUPE Modifier: JIMMY <+> 1 Stop [facility] IntraOp Temp Regulation Devices Entry 1 Temp Regulation Temperature Warm blankets Regulation Device Temperature Upper body Regulation Site Temperature Shannan Busby RN Regulation Device Applied by Temperature monitored per Regulation Comment anesthesia, micknavneet carvalho available Last Modified By: Shannan Busby RN 05/01/18 08:22:17 [facility] IntraOP Time Out Entry 1 Procedure to be Prostate Transurethral Performed Resection Time Out Time Out Pause Time 05/01/18 07:40:00 All activity Yes suspended (unless life threatening emergency) Team Verbally Correct patient Confirms Information identity, Consent form is present and accurate, Agreement on the procedure to be done, Correct patient position, Relevant images/results properly labeled/appropriately displayed, Confirm antibiotics have been administered, Confirm the skin prep has dried, Confirm prosthesis/implant/devic e is present, Performed in location of procedure after prepped/draped Antibiotic Yes Prophylaxis Administered Or In Progress Within the Last 60 Minutes Beta Irene Yes Administered Venous Yes Thromboembolism Prophylaxis Required Anticipated Critical Events Surgeon None expected Anesthesia Provider None expected Nursing Assures Sterility of instruments Essential Imaging Yes Labeled and Displayed Last Modified By: Shannan Busby RN 05/01/18 08:23:28 Case Comments <None> Finalized By: ELYSSA FRIAS Document Signatures Signed By: Shannan Busby RN 05/01/18 08:26 ELYSSA FRIAS 05/04/18 16:19 Unfinalized History Date/Time Username Reason for Unfinalizing Freetext Reason for Unfinalizing 05/04/18 16:18 WATCLINTONDR Correct Billing documented in this encounter Plan of Treatment Not on file documented as of this encounter Visit Diagnoses Not on filedocumented in this encounter
--- OUTSIDE RECORDS SUMMARY | 2025-02-09 15:05 | XMS_ITS | Encounter Summary ---
Author Organization [employer] ([place], [place], [place], [place]) Address [address] [place] [address] Care Team Providers Care Microelectronics Engineer Name Role Phone Unavailable Primary Care Provider Unavailabl e Encounter Details Date Type Department Care Team (Late st Contact Info) Description 05/01/2018 Transcribed Document [facility] [place] Family [place] [facility] [place] [address] ProviderCaroline MD [facility] [place] [address] Social History Tobacco Use Types [...] Note - Caroline Yang MD - 05/01/2018 8:59 AM SUBSTATION ELECTRICIAN SUPERVISOR Nursing Discharge Summary Entered On: 05/01/2018 9:00 EST Performed On: 05/01/2018 8:59 EST by ROYCE LEACH RN Discharge Documentation Discharge Date/Time : 05/01/2018 8:59 EST Patient Disposition, General : Discharge Discharge To : Home without planned follow-up Mode Of Departure, General Discharge : Private vehicle, Wheelchair Accompanied By, Discharge : Care provider IV Discontinued : Yes Medications Given to Patient : Yes Personal Belongings With Patient : Yes Pt's Own Supply of Medications Returned : Yes Prescriptions Given to Patient : Yes Discharge Instructions Reviewed With, Opportunity For Questions Given : Patient, Care provider Teaching Evaluation : Verbalizes understanding ROYCE LEACH RN - 05/01/2018 8:59 EST Electronically signed by Inocencio [facility] Conversion Conference Services Director Cerner at 08/05/2022 11:13 PM CDT documented in this encounter Plan of Treatment Not on file documented as of this encounter Visit Diagnoses Not on filedocumented in this encounter
--- OUTSIDE RECORDS SUMMARY | 2025-02-09 15:05 | XMS_ITS | Encounter Summary ---
Author Organization [employer] ([place], [place], [place], [place]) Address [address] [place] [address] Care Team Providers Care Emery Grinder Name Role Phone Unavailable Primary Care Provider Unavailabl e Encounter Details Date Type Department Care Team (Late st Contact Info) Description 05/01/2018 Transcribed Document [facility] [place] [facility] [place] [address] ProviderCaroline MD [facility] [place] [address] Social History Tobacco Use Types [...] Note - Caroline Yang MD - 05/01/2018 7:14 AM SMELLER Patient: ALDO LOPEZ Age: 67 years Sex: Male : 1950 Associated Diagnoses: None Author: STONEY MCCLENDON APRN Chief Complaint BPH Review of Systems ROS reviewed as documented in chart no change since last seen by surgeon Health Status Allergies: Allergic Reactions (Selected) No Known Medication Allergies, Allergies (1) Active Reaction No Known Medication Allergies None Documented Current medications: (Selected) Inpatient Medications Ordered Lactated Ringers Injection intravenous solution 1,000 mL: 20 mL/Hr, IntraVENous lidocaine 1% preservative-free injectable solution: 0.5 mL, IntraDermal, 1-Time Documented Medications Documented Cipro 500 mg oral tablet: 1 Tab, Oral, Q12H, 0 Refill(s) Coreg 25 mg oral tablet: 1 Tab, Oral, BID, 0 Refill(s) Viagra 100 mg oral tablet: 1 Tab, Oral, Daily, PRN: for erectile dysfunction, 0 Refill(s) aspirin 81 mg oral tablet: 1 Tab, Oral, Daily, 0 Refill(s) minoxidil 10 mg oral tablet: 1 Tab, Oral, BID, 0 Refill(s) simvastatin 40 mg oral tablet: 1 Tab, Oral, At Bedtime, 0 Refill(s) tamsulosin: 0.4 mg, Oral, Daily, 0 Refill(s), Home Medications (7) Active aspirin 81 mg oral tablet 81 mg = 1 Tab, Oral, Daily Cipro 500 mg oral tablet 500 mg = 1 Tab, Oral, Q12H Coreg 25 mg oral tablet 25 mg = 1 Tab, Oral, BID minoxidil 10 mg oral tablet 10 mg = 1 Tab, Oral, BID simvastatin 40 mg oral tablet 40 mg = 1 Tab, Oral, At Bedtime tamsulosin 0.4 mg, Oral, Daily Viagra 100 mg oral tablet 100 mg = 1 Tab, PRN, Oral, Daily , Medications (2) Active Scheduled: (1) lidocaine 1% *PF* inj 2 mL 0.5 mL, IntraDermal, 1-Time Continuous: (1) lactated ringers 1,000 mL 1,000 mL, IntraVENous, 20 mL/Hr PRN: (0) Problem list: All Problems Hypertrophy of prostate / SNOMED CT 056671781 / Confirmed Impotence / SNOMED CT 4220662818 / Confirmed HTN (hypertension) / SNOMED CT 1385802958 / Confirmed High blood cholesterol / SNOMED CT 84195654 / Confirmed History of obstructive sleep apnea / IMO 62222001 / Confirmed History of urinary retention / SNOMED CT 835088424 / Confirmed Bacterial UTI / SNOMED CT 847120182 / Confirmed Anemia / SNOMED CT 837309157 / Confirmed, Active Problems (8) Anemia Bacterial UTI High blood cholesterol History of obstructive sleep apnea History of urinary retention HTN (hypertension) Hypertrophy of prostate BPH Impotence Histories Past Medical History: No active or resolved past medical history items have been selected or recorded. Family History: No family history items have been selected or recorded. Procedure history: colonoscopy. prostate surgery. right rotator cuff repair. cysts removed from head. Hemorrhoidectomy. Social History Social & Psychosocial Habits Alcohol 05/01/2018 Alcohol Use History, Social Habits No Substance Abuse 05/01/2018 Recreational Drug Use History No Tobacco 05/01/2018 Smoking Status Never (less than 100 in l Smokeless Tobacco Status Never . Physical Examination VS/Measurements No qualifying data available, Measurements from flowsheet : Measurements 04/30/2018 14:01 EST Height Source Measured Height Entry Format [place] Height/Length, [place]AN[place] (ft) 0 ft Height/Length TANZANIAN 70 Inch CLINICALHEIGHT 177.8 cm [place] Body Weight 72 kg Weight Source Standing scale Weight Entry Format [place] Weight [place] lb 231.8 lb CLINICALWEIGHT 105.36 kg Body Surface Area (BSA) 2.22 m2 Body Mass Index 33.3 kg/m2 HI General: Alert and oriented, No acute distress, obese. Eye: Pupils are equal, round and reactive to light, Extraocular movements are intact, glasses. HENT: Normocephalic, Normal hearing. Neck: Supple, Non-tender. Respiratory: Lungs are clear to auscultation, Respirations are non-labored. Cardiovascular: Normal rate, Regular rhythm, No murmur, No gallop, No edema. Gastrointestinal: Soft, Non-tender. Genitourinary: No costovertebral angle tenderness, quiroz draining clear yellow urine . Lymphatics: No lymphadenopathy neck, axilla, groin. Musculoskeletal: Normal range of motion, Normal strength. Integumentary: Warm, Dry, [place]. Neurologic: Alert, Oriented. Psychiatric: Cooperative, Appropriate mood & affect. Review / Management Results review: No qualifying data available, Lab results: 05/01/2018 6:41 EST Potassium POC 5.1 mmol/L HI . Impression and Plan Condition: Stable. Electronically signed by Izabella Painter Conversion Computer Systems Technology Instructor Cerner at 08/05/2022 11:13 PM CDT documented in this encounter Plan of Treatment Not on file documented as of this encounter Visit Diagnoses Not on filedocumented in this encounter
--- OUTSIDE RECORDS SUMMARY | 2025-02-09 15:06 | XMS_ITS | Clinical Summary ---
Author Organization [employer] ([place], [place], [place], [place]) Address [address] [place] [address] Care Team Providers Care Mill Laborer Name Role Phone Unavailable Primary Care Provider [...]
[2025-02-09 15:21] LABS: Hematocrit 40.1 % (42.0-52.0); Hemoglobin 13.8 g/dL (14.1-18.0); Immature Granulocytes % 0.2 %; Mean Corpuscular HGB Conc 34.4 g/dL (31.8-35.4); Mean Corpuscular Hemoglobin 31.5 pg (27.0-31.2); Mean Corpuscular Volume 91.6 fl (80-94); Nucleated Red Blood Cells % 0 %; Platelet Count 180 K/mm3 (142-424); Red Blood Count 4.38 M/mm3 (4.60-6.20); Red Cell Distribution Width-SD 46.6 fL; White Blood Count 8.1 K/mm3 (4.8-10.8)
[2025-02-09 16:07] LABS: Free T4 (Free Thyroxine) 1.49 ng/dl (0.78-2.19)
[2025-02-09 16:32] LABS: Alanine Aminotransferase 15 U/L (12-78); Albumin Level 3.6 g/dl (3.5-5.0); Alkaline Phosphatase 81 U/L (38-126); Anion Gap 13.2 mEq/L (5-15); Aspartate Amino Transferase 21 U/L (17-59); Bilirubin,Direct 0.3 mg/dl (0.0-0.4); Bilirubin,Indirect 1.3 mg/dL (0.0-0.9); Bilirubin,Total 1.6 mg/dl (0.2-1.3); Bilirubin,Unconjugated 1.3 mg/dL (0.0-1.1); Blood Urea Nitrogen 24 mg/dl (9-20); Calcium 9.4 mg/dl (8.4-10.2); Carbon Dioxide 26 mmol/L (22.0-30.0); Chloride 104 mmol/L (98-107); Cholesterol 116 mg/dl (140-200); Creatinine,Serum 1.60 mg/dl (0.66-1.25); Estimated Glomerular Filt Rate 42 ml/min (>60); GFR (African American) 51 ML/MIN (>60); Glucose 110 mg/dl (74-100); HDL Cholesterol 44 mg/dl (40-60); Magnesium 1.8 mg/dl (1.6-2.3); Potassium 4.2 mmoL/L (3.5-5.1); Sodium 139 mmol/L (136-145); Total Protein,Serum 6.0 g/dl (6.3-8.2); Triglycerides 88 mg/dl (30-150)
[2025-02-09 17:03] LABS: Thyroid Stimulating Hormone 1.21 uIU/mL (0.465-4.68)
[2025-02-11 13:41] LABS: Albumin, U 211.6 ug/mL (Not Estab.)
[2025-02-14 10:14] LABS: Renin Activity, Plasma 0.814 ng/mL/hr (0.167-5.380)
== END 2025-02-09 23:59 | disposition home or self-care (01) ==
LOC: LAB 14:56
PROVIDERS: PCP Nurse Practitioner Family; Visit Provider Internal Medicine
DX: I11.0 Hypertensive heart disease with heart failure (principal); I25.10 Atherosclerotic heart disease of native coronary artery without angina pectoris; E78.2 Mixed hyperlipidemia; I50.9 Heart failure, unspecified
CPT/HCPCS: 36415; 80048; 80061; 80076; 82043; 82088; 82384; 82570; 83735; 83835; 84244; 84439; 84443; 85025

== ENCOUNTER 2025-03-02 11:18 | Outpatient (CLI) | payer MEDICARE, SELFPAY ==
--- OUTSIDE RECORDS SUMMARY | 2025-03-02 11:23 | XMS_ITS | Clinical Summary ---
Author Organization Healthcare Address [address] [place] [address] Care Team Providers Care Bobbin Loose End Finder Name Role Phone Nikolas Maciel MD Primary [...] 12/25/1999 UKY-Zoster Vaccines (1 of 2) 12/25/1999 [id number] Vaccine ( season) 2024 02/12/2024, 02/13/2023, 02/15/2022, [...] Health Maintenance Insurance MEDICARE [employer] Care Teams Bobbin Loose End Finder Relationship Specialty Start Date End Date Nikolas Maciel MD [address] [place] [address] PCP - General 09/02/20
--- OUTSIDE RECORDS SUMMARY | 2025-03-02 11:23 | XMS_ITS | Encounter Summary ---
Author Organization [employer] ([place], [place], [place], [place], [place]) Address [address] [place] [address] Care Team Providers Care Cnc Mill Programmer Name Role Phone Unavailable Primary Care Provider Unavailabl e Encounter Details Date Type Department Care Team (Late st Contact Info) Description 05/01/2018 Transcribed Document [facility] [place] [facility] [place] [address] ProviderCaroline MD [facility] [place] [address] Social History Tobacco Use Types [...] Caroline Yang MD - 05/01/2018 7:14 AM TYPING TEACHER Patient: ALDO LOPEZ Age: 67 years Sex: [...] Problems Hypertrophy of prostate / SNOMED CT 556032185 / Confirmed Impotence / SNOMED CT 5898359616 / Confirmed HTN (hypertension) / SNOMED CT 8744224461 / Confirmed High blood cholesterol / SNOMED CT 49129181 / Confirmed History of obstructive sleep apnea / IMO 84421342 / Confirmed History of urinary retention / SNOMED CT 068214180 / Confirmed Bacterial UTI / SNOMED CT 336164080 / Confirmed Anemia / SNOMED CT 472853082 / Confirmed, Active Problems (8) Anemia Bacterial [...] EST Height Source Measured Height Entry Format [place] Height/Length, ST HELEN[place] (ft) 0 ft Height/Length [place] HELEN[place] 70 Inch CLINICALHEIGHT 177.8 cm [place] Body Weight 72 kg Weight Source Standing scale Weight Entry Format [place] Weight [place] lb 231.8 lb CLINICALWEIGHT 105.36 kg Body [...] of motion, Normal strength. Integumentary: Warm, Dry, [place]. Neurologic: Alert, Oriented. Psychiatric: Cooperative, Appropriate mood & affect. Review / Management Results review: No qualifying data available, Lab results: 05/01/2018 6:41 EST Potassium POC 5.1 mmol/L HI . Impression and Plan Condition: Stable. documented in this encounter Plan of Treatment Not on file documented as of this encounter Visit Diagnoses Not on filedocumented in this encounter
--- OUTSIDE RECORDS SUMMARY | 2025-03-02 11:23 | XMS_ITS | Encounter Summary ---
Author Organization [employer] ([place], [place], [place], [place], [place]) Address [address] [place] [address] Care Team Providers Care Manufacturing Technologist Name Role Phone Unavailable Primary Care Provider Unavailabl e Encounter Details Date Type Department Care Team (Late st Contact Info) Description 05/01/2018 Transcribed Document [facility] [place] Family Medicine [facility] [place] [address] ProviderCaroline MD [address] [place] [phone] Social History Tobacco Use Types Packs/Day Years [...] Caroline Yang MD - 05/01/2018 9:07 AM MEDIA ARTS PROFESSOR Patient Education Materials Follows: Transurethral Resection of [...] including vitamins, herbs, eye drops, creams, and [id number] medicines. ??? Any problems you or family [...] 04/08/2006 Document Revised: 12/09/2016 Document Reviewed: 12/29/2015 [employer] Interactive Patient Education ? 2017 [employer] Pharmacology General Anesthesia, Adult, Care After [...] activities are safe for you. ??? Take [id number] and prescription medicines only as told by [...]
--- OUTSIDE RECORDS SUMMARY | 2025-03-02 11:23 | XMS_ITS | Encounter Summary ---
Author Organization [employer] ([place], [place], [place], [place], [place]) Address [address] [place] [address] Care Team Providers Care Real Estate Recruiter Name Role Phone Unavailable Primary Care Provider Unavailabl e Encounter Details Date Type Department Care Team (Late st Contact Info) Description 05/01/2018 Transcribed Document [facility] [place] Medicine [facility] [place] [address] ProviderCaroline MD [address] [place] [address] Social History Tobacco Use Types Packs/Day [...] Caroline Yang MD - 05/01/2018 8:59 AM WEBBING SEAMER [employer] Nursing Discharge Summary Entered On: 05/01/2018 9:00 [...] 05/01/2018 8:59 EST Electronically signed by Inocencio [facility] Conversion Washcoat Wiper Cerner at 08/05/2022 11:13 PM CDT documented in this encounter Plan of Treatment Not on file documented as of this encounter Visit Diagnoses Not on filedocumented in this encounter
--- OUTSIDE RECORDS SUMMARY | 2025-03-02 11:23 | XMS_ITS | Referral Summary ---
Author Organization [employer] ([place], [place], [place], [place], [place]) Address [address] [place] [address] Care Team Providers Care Industrial Psychologist Name Role Phone Unavailable Primary Care Provider [...]
--- OUTSIDE RECORDS SUMMARY | 2025-03-02 11:24 | XMS_ITS | Clinical Summary ---
Author Organization [employer] ([place], [place], [place], [place], [place]) Address [address] [place] [address] Care Team Providers Care Stripping Cutter And Winder Name Role Phone Unavailable Primary Care Provider [...]
--- OUTSIDE RECORDS SUMMARY | 2025-03-02 11:24 | XMS_ITS | Clinical Summary ---
Author Organization [facility] Address [address] [place] [address] Care Team Providers Care Shipping Agent Name Role Phone Unavailable Primary Care [...] therelease of HIV test results or diagnoses. [id number] Social History Tobacco Use Types Packs/Day Years Used Date Smoking Tobacco: Never Assessed Sex and Gender Information Value Date Recorded Sex Assigned at Not on file Legal Sex Male 9:14 PM EST Gender Identity Not on file Sexual Orientation Not on file Plan of Treatment Not on file
--- OUTSIDE RECORDS SUMMARY | 2025-03-02 11:24 | XMS_ITS | Encounter Summary ---
Author Organization [employer] ([place], [place], [place], [place], [place]) Address [address] [place] [address] Care Team Providers Care Social Media Designer Name Role Phone Unavailable Primary Care Provider Unavailabl e Encounter Details Date Type Department Care Team (Late st Contact Info) Description 05/01/2018 Transcribed Document [facility] [place] [facility] [place] [address] ProviderCaroline MD [address] [place] [address] Social History Tobacco Use Types [...] Caroline Yang MD - 05/01/2018 7:41 AM NEUROSURGERY PHYSICIAN [facility] Main OR IntraOp Summary Primary Physician: NORA MACHUCA JR, MD-URO Finalized Date/Time: 05/04/18 16:19:19 Pt. Name: ALEKSANDR LOPEZ BENOIT GutiérrezB./Sex: 1950 Male Med Rec #: [id number] Physician: NORA MACHUCA JR, MD-URO Financial #: [id number] Pt. Type: O Room/Bed: /1 Admit/Disch: 05/01/18 05:38:00 - 05/01/18 10:03:00 Institution: [facility] IntraOp Case Attendance Entry 1 Entry 2 Entry 3 Case Attendee NORA MACHUCA JR, BOWEN, JON B, MD VON KUSTER JONAS MD-HELEN HOOD CRNA Role Performed Surgeon/Proceduralist, Anesthesiologist of SOLID TIRE TUBER MACHINE OPERATOR/Nurse Composition Tile Layer First Record Time In 05/01/18 07:24:00 05/01/18 07:24:00 05/01/18 07:24:00 Time Out 05/01/18 08:14:00 05/01/18 08:14:00 05/01/18 08:14:00 Procedure Prostate Transurethral Prostate Transurethral Prostate Transurethral Resection Resection Resection Other Attendee Superficial Wound Closed By: Last Modified By: Shannan Busby, Shannan Nath RN Poff, Janie, RN 05/01/18 08:24:06 05/01/18 08:24:06 05/01/18 08:24:06 Entry 4 Entry 5 Entry 6 Case Attendee Shannan Busby, DEIDRE MARY ROBERT, RN Role Performed Doctor Of Podiatry, First Scrub, First Scrub, Second Time In 05/01/18 07:24:00 05/01/18 07:24:00 05/01/18 07:24:00 Time Out 05/01/18 08:14:00 05/01/18 08:14:00 05/01/18 08:14:00 Procedure Prostate Transurethral Prostate Transurethral Prostate Transurethral Resection Resection Resection Other Attendee Superficial Wound Closed By: Last Modified By: Shannan Busby RN Poff, Janie, RN Poff, Janie, RN 05/01/18 08:24:06 05/01/18 08:24:06 05/01/18 08:24:[address] [facility] IntraOp Case Attendance Audit 05/01/18 08:24:06 Hvac Engineer: JIMMY Modifier: JIMMY 1 <+> Time Out [...] <*> Procedure Prostate Transurethral Resection 05/01/18 08:14:44 Hvac Engineer: JOSE GUADALUPE Modifier: JIMMY 1 <*> Procedure Prostate Transurethral Resection 2 <+> Time In 2 <*> Procedure Prostate Transurethral Resection 3 <+> Time In 3 <*> Procedure Prostate Transurethral Resection 4 <+> Time In 4 <*> Procedure Prostate Transurethral Resection 5 <+> Time In 5 <*> Procedure Prostate Transurethral Resection 6 <+> Time In 6 <*> Procedure Prostate Transurethral Resection [facility] IntraOp Case Times Entry 1 Patient In Room Time 05/01/18 07:24:00 Out Room Time 05/01/18 08:14:00 Anesthesia Start Time 05/01/18 07:24:00 Stop Time 05/01/18 08:14:00 Surgery / Procedure Times Start Time 05/01/18 07:41:00 Stop Time 05/01/18 08:05:00 Last Modified By: Shannan Busby RN 05/01/18 08:14:[address] [facility] IntraOp Case Times Audit 05/01/18 08:14:55 Hvac Engineer: JOSE GUADALUPE Modifier: JIMMY <+> 1 Out Room Time <+> 1 Stop Time <+> [address] [facility] IntraOp Cautery Entry 1 ESU Identification Cautery Type Other ID Number [id number] ID Type Hospital Number Cautery Settings ESU Grounding Pad Grounding Pad Site Warm, dry and intact Skin Condition Before Cautery Grounding Pad Site Warm, dry and intact Skin Condition After Cautery Last Modified By: Shannan Busby RN 05/01/18 08:24:[address] [facility] IntraOp Cautery Audit 05/01/18 08:24:02 Hvac Engineer: JIMMY Modifier: JIMMY <+> [address] [facility] IntraOp Communication Entry 1 Communication To Family/Significant other Comment PROCEDURE START Communication By URSULA CANTU RN Date and Time 05/01/18 07:40:00 Last Modified By: Shannan Busby RN 05/01/18 07:57:[address] [facility] IntraOp Departure from OR Entry 1 Integumentary Assessment Integumentary WDL Assessment WDL Transfer/Handoff Transfer to PACU Phase I Handoff Method Phone call Post-op Transport Stretcher/Gurney Via Patient Transport JONAS COOLEY Accompanied by CLARA HOOD, URSULA CANTU RN Last Modified By: Shannan Busby RN 05/01/18 08:14:[address] [facility] IntraOp Fire Risk Assessment Entry 1 Fire [...] Modified By: Shannan Busby RN 05/01/18 08:15:[address] [facility] IntraOp General Case Inner Tube Inserter 1 Case Information OR Cysto [facility] Case Level 1 Room Verified Yes Wound Class II - Clean-Contaminated Specialty SN Urology Anesthesia Type General ASA Class 3 Diagnosis Preop Diagnosis BPH WITH LOWER URINARY TRACT SYMPTOMS Postop Same As Preop Yes Postop Diagnosis BPH WITH LOWER URINARY TRACT SYMPTOMS Last Modified By: Shannan Busby RN 05/01/18 08:16:[address] [facility] IntraOp General Case Data Audit 05/01/18 08:16:39 Hvac Engineer: JIMMY Modifier: JIMMY <+> 1 Postop Same As Preop <+> 1 Preop Diagnosis <+> [address] [facility] IntraOp Intraoperative Assessment Entry 1 Handoff Method [...] Modified By: Shannan Busby RN 05/01/18 08:16:[address] [facility] IntraOp Intraoperative Equipment Entry 1 Type Monitoring Equipment Intraop Monitoring Electrocardiogram Three lead placement (ECG) Electrode Placement Blood Pressure Non-Invasive BP Device Source Antiembolic Devices Antiembolic Devices Sequential compression device, knee high Antiembolic Device Bilateral Location Antiembolic Device [id number] ID Number Scopes Photo/Video Documentation Photo No Video No Intraop Equipment SEQUENTIAL COMPRESSION Comment DEVICES ON AND IN OPERATION PRIOR TO INDUCTION. Last Modified By: Shannan Busby RN 05/01/18 08:18:[address] [facility] IntraOp Medication Admin Entry 1 Entry 2 Medication/Irrigant B&O 16A Suppository - NOEMY IRR NACL 0.9PCT [id number] 3000ML BG --[id number] Combo Med List Time Administered 05/01/18 08:05:00 05/01/18 07:41:00 Route of RECTAL IRRIGATION Administration Dose Dose 60 Unit of Measure mg Volume Administered By NORA MACHUCA JR, Poff, Janie, RN MD-URO Procedure Irrigation Irrigant Volume In 6000 mL Irrigant Volume Out 6000 mL Last Modified By: Shannan Busby RN Poff, Janie, RN 05/01/18 08:21:17 05/01/18 08:21:[address] [facility] IntraOp Patient Positioning Entry 1 Procedure Prostate [...] Modified By: URSULA CANTU RN 05/01/18 07:52:[address] [facility] IntraOp Sign In Entry 1 Patient, Site, [...] Modified By: URSULA CANTU RN 05/01/18 07:46:[address] [facility] IntraOp Sign Out Entry 1 RN Confirmation [...] Modified By: Shannan Busby RN 05/01/18 08:21:[address] [facility] IntraOp Skin Prep Entry 1 Procedure Prostate Transurethral Resection Prescribed Yes Pre-Surgical Prep Completed Prep Area GENITALIA Intraop Prep Integumentary WDL Assessment WDL Prep Agents Betadine solution Prep by Shannan Busby RN Hair Removal Methods No hair removal performed Last Modified By: Shannan Busby RN 05/01/18 08:21:[address] [facility] IntraOp Surgical Procedures Entry 1 Procedure Prostate Transurethral Resection Additional CYSTOSCOPY WITH GYRUS Procedure BUTTON TRANSURETHRAL Description RESECTION OF THE PROSTATE Primary Procedure Yes Primary Surgeon NORA MACHUCA JR, MD-URO Start 05/01/18 07:41:00 Stop 05/01/18 08:05:00 Anesthesia Type General Specialty SN Urology Wound Class II - Clean-Contaminated Last Modified By: Shannan Busby RN 05/01/18 08:22:06 General Comments: CEFOXITIN ADMINISTERED AT [address] [facility] IntraOp Surgical Procedures Audit 05/01/18 08:22:06 Hvac Engineer: ALONDRAJarred Modifier: JIMMY <+> [address] [facility] IntraOp Temp Regulation Devices Entry 1 Temp Regulation Temperature Warm blankets Regulation Device Temperature Upper body Regulation Site Temperature Shannan Busby RN Regulation Device Applied by Temperature monitored per Regulation Comment anesthesia, mick carvalho available Last Modified By: Shannan Busby RN 05/01/18 08:22:[address] [facility] IntraOP Time Out Entry 1 Procedure to [...]
--- OUTSIDE RECORDS SUMMARY | 2025-03-02 11:24 | XMS_ITS | Clinical Summary ---
Author Organization [facility] Address [address] [place] [id number] Care Team Providers Care Nail Feeder Name Role Phone Nikolas Maciel MD Primary [...] Moviprep. Follow instructions provided by Office. Call [phone] with questions. 354 mL 4 Active Social [...] Payer (Ef fective 2014-Present) Name:Aldo Wills Member ID:[id number] Relation to Subscriber:Self Name:Aldo Wills Subscriber ID:[id number] Payer ID:[id number] Group ID:Not on file Type:Not on file Address: [address] [facility] [employer] Care Teams Nail Feeder Relationship Specialty Start Date End Date Nikolas Maciel MD [address] [place], [place] [id number] PCP - General Family Medicine 05/08/16
--- OUTSIDE RECORDS SUMMARY | 2025-03-02 11:24 | XMS_ITS | Encounter Summary ---
Author Organization [employer] ([place], [place], [place], [place], [place]) Address [address] [place] [address] Care Team Providers Care Siding Coreboard Inspector Name Role Phone Unavailable Primary Care Provider Unavailabl e Encounter Details Date Type Department Care Team (Late st Contact Info) Description 05/10/[address] [facility] [place] Family Medicine [facility] [place] [address] ProviderCaroline MD [address] [place] [phone] Social History Tobacco Use Types Packs/Day Years Used Date Smoking Tobacco: Never Assessed Sex and Gender Information Value Date Recorded Sex Assigned at Male 10/17/2021 8:27 PM CDT Legal Sex Male 8:27 PM CDT Gender Identity Male 10/17/2021 8:27 PM CDT Sexual Orientation Not on file documented as of this encounter Miscellaneous Notes * Cerner Conversion Note - Caroline Yang MD - 05/10/2018 12:41 PM GINNER DATE OF PROCEDURE:05/01/2018 PREOPERATIVE DIAGNOSIS(ES): REASON FOR SURGERY: 1. Gross hematuria with clot retention. 2. Benign prostatic hypertrophy. POSTOPERATIVE DIAGNOSIS(ES): 1. Gross hematuria with clot retention. 2. Benign prostatic hypertrophy. PROCEDURE: Cystoscopy with clot evacuation and transurethral resection of prostate with Gyrus Button bipolar equipment. SURGEON: Titus Cervantes Jr., MD ANESTHESIA: General. COMPLICATIONS: None. Patient taken to recovery room in stable condition. PROCEDURE DESCRIPTION: The patient gives full consent for procedure. Brought in the operating suite, was placed in supine position in the dorsal lithotomy position after anesthesia been induced. A scope was inserted in the patient urethra and bladder atraumatically. We did see multiple clots within the urinary bladder and these were irrigated easily and the bladder was clear. There was no bleeding on the inside of the bladder. No bladder tumors. No stones. Both ureteral orifices were orthotopic in nature with clear efflux. We did see a significant regrowth of prostatic urethra from previous resection/vaporization. The Gyrus Button was used. TURP was performed, lateral posterior anterior lobes. Then we used the Gyrus Button down to the level of the verumontanum but not distally. We had a nice TUR defect at the end of the case which was without any bleeding. At this point, a 22-Slovenian Guidry catheter was placed. Anesthesia was reversed. The patient was taken to recovery room in stable condition. Titus Cervantes Jr., M.D. Dict: 05/10/2018 12:41:31 Trans: 05/10/2018 13:38:37 CC1: Titus Cervantes Jr., M.D. documented in this encounter Plan of Treatment Not on file documented as of this encounter Visit Diagnoses Not on filedocumented in this encounter
--- OUTSIDE RECORDS SUMMARY | 2025-03-02 11:24 | XMS_ITS | Encounter Summary ---
Author Organization [employer] ([place], [place], [place], [place], [place]) Address [address] [place] [address] Care Team Providers Care Manufacturing Engineering Director Name Role Phone Unavailable Primary Care Provider Unavailabl e Encounter Details Date Type Department Care Team (Late st Contact Info) Description 05/01/2018 Transcribed Document [facility] [place] [facility] [place] [address] ProviderCaroline MD [facility] [place] [address] Social History Tobacco Use Types [...] Caroline Yang MD - 05/01/2018 7:41 AM LANDING GEAR MECHANIC [facility] Main OR PACU Summary Primary Physician: NORA MACHUCA JR, MD-URO Finalized Date/Time: 05/01/18 09:10:02 Pt. Name: JOHN ALDOFLETCHER LABOY D.O.B./Sex: 1950 Male Med Rec #: [id number] Physician: NORA MACHUCA JR, MD-URO Financial #: [id number] Pt. Type: O Room/Bed: /1 Admit/Disch: 05/01/18 05:38:00 - Institution: [facility] Main OR PACU I Case Times Entry 1 In PACU I 05/01/18 08:17:00 Ready for PACU 05/01/18 09:50:00 Discharge Discharge from PACU 05/01/18 08:57:00 I Last Modified By: PANCHO ARZATE RN 05/01/18 09:09:08 [facility] Main OR PACU I Case Times Audit 05/01/18 09:09:08 Bench Chemist: ALVAROPETR Modifier: BRANDEP <+> 1 Ready for PACU Discharge <+> 1 Discharge from PACU I [facility] Main OR PACU Acuity Entry 1 Start Time 05/01/18 08:50:00 Stop Time 05/01/18 08:57:00 Acuity Level [facility] PACU Acuity I Last Modified By: PANCHO ARZATE RN 05/01/18 09:09:57 Finalized By: PANCHO ARZATE, RN Document Signatures Signed By: PANCHO ARZATE RN 05/01/18 09:10 Electronically signed by Inocencio [facility] Conversion Electric Range Assembler Cerner at 08/05/2022 11:23 PM CDT documented in this encounter Plan of Treatment Not on file documented as of this encounter Visit Diagnoses Not on filedocumented in this encounter
--- OUTSIDE RECORDS SUMMARY | 2025-03-02 11:24 | XMS_ITS | Encounter Summary ---
Author Organization [employer] ([place], [place], [place], [place], [place]) Address [address] [place] [address] Care Team Providers Care Cross Country Coach Name Role Phone Unavailable Primary Care Provider Unavailabl e Encounter Details Date Type Department Care Team (Late st Contact Info) Description 05/01/2018 Transcribed Document [facility] [place] [facility] [place] [address] ProviderCaroline MD [facility] [place] [address] Social History Tobacco Use Types [...] Caroline Yang MD - 05/01/2018 7:41 AM COLORING MACHINE OPERATOR [facility] Main OR Preop Summary Primary Physician: NORA MACHUCA JR, MD-URO Finalized Date/Time: 05/01/18 12:06:08 Pt. Name: JOHN ALDOIris LABOY D.O.B./Sex: 1950 Male Med Rec #: [id number] Physician: NORA MACHUCA JR, MD-URO Financial #: [id number] Pt. Type: O Room/Bed: /1 Admit/Disch: 05/01/18 05:38:00 - Institution: [facility] PreOp Case Times Entry 1 In Preop 05/01/18 05:38:00 Ready for Holding n/a Room Patient Ready for 05/01/18 07:00:00 Surgery Patient Out of Preop 05/01/18 07:21:00 Patient Out of n/a Holding Room Last Modified By: JUANY GARCIA RN 05/01/18 12:06:05 [facility] PreOp Case Times Audit 05/01/18 12:06:05 Range Manager: ELENA Modifier: SILVESTREAJITHJuan Pablo <+> 1 Patient Out of Preop Finalized By: JUANY GARCIA, RN Document Signatures Signed By: JUANY GARCIA RN 05/01/18 12:06 Electronically signed by Inocencio [facility] Conversion Fuse Maker Cerner at 08/05/2022 11:28 PM CDT documented in this encounter Plan of Treatment Not on file documented as of this encounter Visit Diagnoses Not on filedocumented in this encounter
--- OUTSIDE RECORDS SUMMARY | 2025-03-02 11:24 | XMS_ITS | Encounter Summary ---
Author Organization [employer] ([place], [place], [place], [place], [place]) Address [address] [place] [address] Care Team Providers Care Automobile Lights Assembler Name Role Phone Unavailable Primary Care Provider Unavailabl e Encounter Details Date Type Department Care Team (Late st Contact Info) Description 04/30/2018 Transcribed Document [facility] [place] [facility] [place] [address] ProviderCaroline MD [address] [place] [address] Social History Tobacco Use Types [...] - Caroline ProviderMD - 04/30/2018 2:01 PM GROUND OPERATIONS SUPERINTENDENT PAT Adult Entered On: 04/30/2018 14:10 EST Performed On: 04/30/2018 14:01 EST by GONZALEZ CONDE RN Height and Weight, Clinical Dosing Height Source : Measured Height Entry Format : Weber Height, Feet : 0 ft(Converted to: 0 cm, 0 Inch) Height, Inches : 70 Inch(Converted to: 5 ft 10 Inch, 177.80 cm) Clinical Height : 177.8 cm Weight Source : Standing scale Weight Entry Format : Weber Clinical Dosing Weight : 105.36 kg Weight, Pounds : 231.8 lb Body Surface Area (BSA) : 2.22 m2 Body Mass Index : 33.3 kg/m2 (HI) Downs Body Weight : 72 kg JUANY GARCIA [...] Updated: 05/01/2018 06:29:38 EST by JUANY GARCIA, RN) Infectious Disease History Infectious Disease History : [...] Obtained From : Patient Primary Language : Kyrgyz Communication Barrier : None Objects to Sharing [...] GONZALEZ CONDE RN - 04/30/2018 14:01 EST Electronically signed by Izabella Painter Conversion Orthopedic Nurse Practitioner Cerner at 08/05/2022 11:15 PM CDT documented in this encounter Plan of Treatment Not on file documented as of this encounter Visit Diagnoses Not on filedocumented in this encounter
--- OUTSIDE RECORDS SUMMARY | 2025-03-02 11:24 | XMS_ITS | Encounter Summary ---
Author Organization [employer] ([place], [place], [place], [place], [place]) Address [address] [place] [address] Care Team Providers Care Revenue Cycle Manager Name Role Phone Unavailable Primary Care Provider Unavailabl e Encounter Details Date Type Department Care Team (Late st Contact Info) Description 05/01/2018 Transcribed Document [facility] [place] Family Medicine [facility] [place] [address] ProviderCaroline MD [address] [place] [address] Social History Tobacco Use Types Packs/Day [...] Caroline Yang MD - 05/01/2018 9:07 AM CONTINUOUS MINER OPERATOR HELPER [address] [place] [address] Patient Copy Patient Information: Name: ALDO LOPEZ Current Date: 05/01/2018 09:07:14 : 1950 Patient Address: [address] [place] [id number] Patient Attending Physician: NORA MACHUCA JR, MD-URO Primary Care Provider: JONAS, NOT LISTED Primary Care Provider Phone: Discharge Diagnosis: Weight on Admission: 231 lb, 13 oz Comment: Follow-up Instructions: With: Address: When: NORA MACHUCA JR [address] [place] [address], [address] [place] [address] Business (1) Within 2 to 3 days [...] any): Final Medication List: Printed Prescriptions acetaminophen-hydrocodone (Bailey 7.5 mg-325 mg oral tablet) 1 Tablet(s) [...] including vitamins, herbs, eye drops, creams, and pxoc-omq-elclswa medicines. ??? Any problems you or family [...] 04/08/2006 Document Revised: 12/09/2016 Document Reviewed: 12/29/2015 [employer] Interactive Patient Education ? 2017 [employer] General Anesthesia, Adult, Care After These [...] activities are safe for you. ??? Take diaz-daf-vhqpabh and prescription medicines only as told by [...] 07/15/2001 Document Revised: 09/10/2016 Document Reviewed: 03/22/2016 [employer] Interactive Patient Education ? 2017 [employer]. Medication Leaflets: acetaminophen and hydrocodone (a SEET a MIN oh fen and nancy droe KOE done) Hycet, Lorcet, Bailey, Verdrocet, Vicodin, Xodol, Zamicet What is the [...] pain, tiredness, loss of appetite, dark urine, yamilet-colored stools, jaundice (yellowing of the skin or [...] may report side effects to FDA at 6-364-LEY-2977. What other drugs will affect acetaminophen and [...] affect acetaminophen and hydrocodone, including prescription and ickr-jhc-zmrgnmn medicines, vitamins, and herbal products. Not all [...] to ensure that the information provided by [employer]. ('[employer]') is accurate, up-to-date, and complete, but no guarantee is made to that effect. Drug information contained herein may be time sensitive. [employer] information has been compiled for use by healthcare practitioners and consumers in the [place] and therefore [employer] does not warrant that uses outside of the [place] are appropriate, unless specifically indicated otherwise. [employer]'s drug information does not endorse drugs, diagnose patients or recommend therapy. [employer] drug information is an informational resource designed [...] effective or appropriate for any given patient. [employer] does not assume any responsibility for any aspect of healthcare administered with the aid of information [employer] provides. The information contained herein is not intended to cover all possible uses, directions, precautions, warnings, drug interactions, allergic reactions, or adverse effects. If you have questions about the drugs you are taking, check with your doctor, nurse or pharmacist. Copyright 2371-6167 [employer]. Version: 15.02. Revision Date: 02/24/2018. CIGARETTE SMOKING: The facts are clear, cigarette smoking will shorten your life. Smoking can cause many illnesses along the way. As a healthcare provider, we recommend that you stop smoking. Assistance with quitting is available by contacting 1-736-SREZ-NOW. This is a free resource providing counseling, [...] Be sure to sign up for the [facility] patient portal, which gives you 12/11 access to your medical information ??? including these discharge instructions ??? using your computer, smartphone, or tablet. Just go to [employer] to get started. Questions? Call . [facility] would like to thank you for allowing us to assist you with your healthcare needs. JOHN Bond KENNETH RAY, (or operations support representative) have received the above patient education materials/instructions and have verbalized understanding: Patient Signature _ Date/Time Patient Food Sales Clerk Signature (if needed) Date/Time Clinician/Hospital Food Sales Clerk Signature (if needed) Date/Time documented in this encounter Plan of Treatment Not on file documented as of this encounter Visit Diagnoses Not on filedocumented in this encounter
--- OUTSIDE RECORDS SUMMARY | 2025-03-02 11:24 | XMS_ITS | Encounter Summary ---
Author Organization [employer] ([place], [place], [place], [place], [place]) Address [address] [place] [address] Care Team Providers Care Head Of Conservation Name Role Phone Unavailable Primary Care Provider Unavailabl e Encounter Details Date Type Department Care Team (Late st Contact Info) Description 05/01/2018 Transcribed Document [facility] [place] Family Medicine [facility] [place] [address] ProviderCaroline MD [address] [place] [address] [phone] Social History Tobacco Use Types Packs/Day Years Used Date Smoking Tobacco: Never Assessed Sex and Gender Information Value Date Recorded Sex Assigned at Male 10/17/2021 8:27 PM CDT Legal Sex Male 8:27 PM CDT Gender Identity Male 10/17/2021 8:27 PM CDT Sexual Orientation Not on file documented as of this encounter Miscellaneous Notes * Cerner Conversion Note - Caroline Yang MD - 05/01/2018 9:00 AM 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
--- OUTSIDE RECORDS SUMMARY | 2025-03-02 11:24 | XMS_ITS | Encounter Summary ---
Author Organization [employer] ([place], [place], [place], [place], [place]) Address [address] [place] [address] Care Team Providers Care Equities Trader Name Role Phone Unavailable Primary Care Provider Unavailabl e Encounter Details Date Type Department Care Team (Late st Contact Info) Description 05/01/2018 Transcribed Document [facility] [place] [facility] [place] [address] ProviderCaroline MD [facility] [place] [address] Social History Tobacco Use Types [...] Caroline Yang MD - 05/01/2018 7:41 AM SKI MAKER [facility] Main OR PostOp Summary Primary Physician: NORA MACHUCA JR, MD-URO Finalized Date/Time: 05/01/18 10:11:54 Pt. Name: JOHN ALDOIris LABOY D.O.B./Sex: 1950 Male Med Rec #: [id number] Physician: NORA MACHUCA JR, MD-URO Financial #: [id number] Pt. Type: O Room/Bed: /1 Admit/Disch: 05/01/18 05:38:00 - Institution: [facility] Main OR PostOp Case Times Entry 1 In PACU II 05/01/18 09:08:00 Ready for PACU II 05/01/18 10:03:00 Discharge Discharge from PACU 05/01/18 10:03:00 II Last Modified By: ROYCE LEACH RN 05/01/18 10:11:52 Finalized By: ROYCE LEACH RN Document Signatures Signed By: ROYCE LEACH RN 05/01/18 10:11 Electronically signed by Inocencio [facility] Conversion New Car Inspector Cerner at 08/05/2022 11:07 PM CDT documented in this encounter Plan of Treatment Not on file documented as of this encounter Visit Diagnoses Not on filedocumented in this encounter
== END 2025-03-02 23:59 | disposition home or self-care (01) ==
LOC: LAB 11:20
PROVIDERS: Internal Medicine; PCP Nurse Practitioner Family; Visit Provider Nurse Practitioner
DX: I11.0 Hypertensive heart disease with heart failure (principal); I25.10 Atherosclerotic heart disease of native coronary artery without angina pectoris; I50.9 Heart failure, unspecified; E78.2 Mixed hyperlipidemia
CPT/HCPCS: 82384; 83835; 84585

== ENCOUNTER 2025-03-16 10:00 | Outpatient (CLI) | payer MEDICARE, SELFPAY ==
--- OUTSIDE RECORDS SUMMARY | 2025-03-16 10:05 | XMS_ITS | Data Portability ---
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 Symptoms managed with finasteride post-TURP. No recent hematuria. Continued renal cyst surveillance is essential. PSA was normal, but ongoing monitoring is recommended. [email or web address] Not available 09/18/2024 09:20:19 Plan of Treatment Reminders Order Date Submit Date Provider Last Modified By Organization Details Last Modified Time Details Appointments RECHECK 2025 09:15A Nanda MACHUCA MD Not available Not available Not available Lab PSA, serum or plasma 2024 025 [facility], [address], [address], [place], [address], 09/21/2024 06:48:53 urinalysi s panel, auto 2024 025 [facility], [address], [address], [place], [address], 09/18/2024 09:18:22 urinalysi s panel, auto 2023 024 [facility], [address], [address], [place], [address], 02/17/2024 07:18:38 PSA, serum or plasma 2023 024 [facility], [address], [address], [place], [address], 02/17/2024 07:18:34 urinalysi s panel, auto 2023 024 [facility], [address], [address], [place], [address], 08/07/2023 11:50:04 PSA, serum or plasma 2023 024 [facility], [address], [address], [place], [address], 08/07/2023 11:50:05 urinalysi s panel, auto 2022 023 [facility], [address], [address], [place], [address], 02/10/2023 16:20:33 urinalysi s panel, auto 2022 023 [facility], [address], [address], [place], [address], 10/09/2022 07:11:57 culture, urine 2022 023 [facility], [address] [place], [address], 10/09/2022 09:55:14 Referral None recorded. Procedures None recorded. Surgeries None recorded. Imaging US, retroperi toneum, limited 2024 025 [facility], [address] [place], [address], 10/05/2024 10:53:33 US, retroperi toneum, limited 2023 024 [email or web address], [address] [place] [address], [place], [address], 05/04/2024 12:55:41 Medication Orders finasteri de 5 mg tablet 2024 025 [facility][id number], [address], [id number], 09/18/2024 09:18:31 finasteri de 5 mg tablet 2023 024 [facility] #[id number], [address], [id number], 08/07/2023 11:50:12 Patient TargetsNo targets recorded. Patient Instructions Encounter Date Encounter Id Patient Instructions Last Modified By Organization Details Last Modified Time 02/10/2024 [id number] learning about depression [email or web address] Not available 02/17/2024 07:18:34 09/18/2024 [id number] - Keep taking your finasteride as prescribed. - We'll do a renal ultrasound now and then to check those kidney cysts. - You wanted a PSA test today, so we'll take care of that. - Come back to see me in about a year unless something changes. - If you have blood in your urine or any new symptoms, let us know. [email or web address] Not available 09/18/2024 09:20:22 Reason for Referral None Reported. Results Created Date Observation Date Name Description Value Unit Range Abnormal Flag Note LastModifiedBy Organization Detail LastModifiedTime 10/09/19 23 10/10/2022 URINE CULTU RE urine culture No growth day 2. Not Available [facility] [address] [facility], [place], [address], 10/10/2022 13:43:43 10/09/19 23 10/08/2022 urina lysis panel , auto Unknown Analyte Clean Catch Not Available [facility] [address], [place], [address], 10/08/2022 10:13:01 10/09/19 23 10/08/2022 urina lysis panel , auto Unknown Analyte Yellow Not Available [facility] [address], [address], 10/08/2022 10:13:01 10/09/19 23 10/08/2022 urina lysis panel , auto Unknown Analyte Clear Not Available [facility] [address], [address], 10/08/2022 10:13:01 10/09/19 23 10/08/2022 urina lysis panel , auto Unknown Analyte 1.020 Not Available [facility] [address], [address], 10/08/2022 10:13:01 10/09/19 23 10/08/2022 urina lysis panel , auto Unknown Analyte 5.0 Not Available [facility] [address], [address], 10/08/2022 10:13:01 10/09/19 23 10/08/2022 urina lysis panel , auto Unknown Analyte 75 Kinga/ul (+) Not Available [facility] [address], [address], 10/08/2022 10:13:01 10/09/19 23 10/08/2022 urina lysis panel , auto Unknown Analyte POSITI VE (Abnor mal) Not Available [facility] [address], [place], [address], 10/08/2022 10:13:01 10/09/1910/08/2022 urina lysis panel , auto Unknown Analyte 500 mg/dl (+++) Not Available [facility] [address], [address], 10/08/2022 10:13:01 10/09/1910/08/2022 urina lysis panel , auto Unknown Analyte 50 mg/dl Not Available [facility] [address], [address], 10/08/2022 10:13:01 10/09/1910/08/2022 urina lysis panel , auto Unknown Analyte 15 mg/dl (Sm) Not Available [facility] [address], [address], 10/08/2022 10:13:01 10/09/1910/08/2022 urina lysis panel , auto Unknown Analyte 8 mg/dl Not Available [facility] [address], [address], 10/08/2022 10:13:01 10/09/19 23 10/08/2022 urina lysis panel , auto Unknown Analyte 1 mg/dl (+) Not Available [facility] [address], [place], [address], 10/08/2022 10:13:01 10/09/19 23 10/08/2022 urina lysis panel , auto Unknown Analyte 250 Jorge/ul Not Available [facility] [address], [place], [address], 10/08/2022 10:13:01 02/05/2002/04/2023 urina lysis panel , auto Unknown Analyte Clean Catch Not Available [facility] [address] [place] [address] Rd [address], [place], [address], 02/04/2023 13:29:00 02/05/2002/04/2023 urina lysis panel , auto Unknown Analyte Straw Not Available [facility] [address] [place] [address] Rd [address], [place], [address], 02/04/2023 13:29:00 02/05/2002/04/2023 urina lysis panel , auto Unknown Analyte Slight ly Hazy Not Available [facility] [address], [place], [address], 02/04/2023 13:29:00 02/05/2002/04/2023 urina lysis panel , auto Unknown Analyte 1.010 Not Available [facility] [address], [place], [address], 02/04/2023 13:29:00 02/05/2002/04/2023 urina lysis panel , auto Unknown Analyte 1.003- 1.035 Not Available [facility] [address], [place], [address], 02/04/2023 13:29:00 02/05/2002/04/2023 urina lysis panel , auto Unknown Analyte 6.0 Not Available [facility] [address], [place], [address], 02/04/2023 13:29:00 02/05/2002/04/2023 urina lysis panel , auto Unknown Analyte 5.0-8. 0 Not Available [facility] [address], [place], [address], 02/04/2023 13:29:00 02/05/2002/04/2023 urina lysis panel , auto Unknown Analyte 75 Kinga/ul (+) Not Available [facility] [address], [place], [address], 02/04/2023 13:29:00 02/05/2002/04/2023 urina lysis panel , auto Unknown Analyte Negati ve Not Available [facility] [address], [place], [address], 02/04/2023 13:29:00 02/05/2002/04/2023 urina lysis panel , auto Unknown Analyte Negati ve Not Available [facility] [address], [place], [address], 02/04/2023 13:29:00 02/05/2002/04/2023 urina lysis panel , auto Unknown Analyte Negati ve Not Available [facility] [address], [place], [address], 02/04/2023 13:29:00 02/05/2002/04/2023 urina lysis panel , auto Unknown Analyte Trace Not Available [facility] [address], [place], [address], 02/04/2023 13:29:00 02/05/2002/04/2023 urina lysis panel , auto Unknown Analyte Negati ve Not Available [facility] [address], [place], [address], 02/04/2023 13:29:00 02/05/2002/04/2023 urina lysis panel , auto Unknown Analyte Normal Not Available [facility] [address], [place], [address], 02/04/2023 13:29:00 02/05/2002/04/2023 urina lysis panel , auto Unknown Analyte Normal Not Available [facility] [address], [place], [address], 02/04/2023 13:29:00 02/05/2002/04/2023 urina lysis panel , auto Unknown Analyte Negati ve Not Available [facility] [address] [place] [address] Rd [address], [place], [address], 02/04/2023 13:29:00 02/05/2002/04/2023 urina lysis panel , auto Unknown Analyte Negati ve Not Available [facility] [address], [place], [address], 02/04/2023 13:29:00 02/05/2002/04/2023 urina lysis panel , auto Unknown Analyte 1 mg/dl Not Available [facility] [address] [place] [address] Rd [address], [place], [address], 02/04/2023 13:29:00 02/05/2002/04/2023 urina lysis panel , auto Unknown Analyte Normal 1 mg/dl Not Available [facility] [address] [place] [address] Rd [address], [place], [address], 02/04/2023 13:29:00 02/05/2002/04/2023 urina lysis panel , auto Unknown Analyte Negati ve Not Available [facility] [address], [place], [address], 02/04/2023 13:29:00 02/05/2002/04/2023 urina lysis panel , auto Unknown Analyte Negati ve Not Available [facility] [address] [place] [address] Rd [address], [place], [address], 02/04/2023 13:29:00 02/05/2002/04/2023 urina lysis panel , auto Unknown Analyte Negati ve Not Available [facility] [address] [place] [address] Rd [address], [place], [address], 02/04/2023 13:29:00 02/05/2002/04/2023 urina lysis panel , auto Unknown Analyte Negati ve Not Available [facility] [address], [address], 02/04/2023 13:29:00 08/07/19 24 08/07/2023 PSA, serum or plasm a PSA 1.4 NG/mL 0.0 - 4.0 Not Available [facility] [address], [address], 08/07/2023 11:05:49 08/07/1908/07/2023 urina lysis panel , auto Unknown Analyte Clean Catch Not Available [facility] [address], [address], 08/07/2023 09:53:53 08/07/19 24 08/07/2023 urina lysis panel , auto Unknown Analyte Yellow Not Available [facility] [address], [address], 08/07/2023 09:53:53 08/07/19 24 08/07/2023 urina lysis panel , auto Unknown Analyte Clear Not Available [facility] [address], [address], 08/07/2023 09:53:53 08/07/19 24 08/07/2023 urina lysis panel , auto Unknown Analyte 1.015 Not Available [facility] [address], [address], 08/07/2023 09:53:53 08/07/19 24 08/07/2023 urina lysis panel , auto Unknown Analyte 1.003- 1.035 Not Available [facility] [address], [address], 08/07/2023 09:53:53 08/07/19 24 08/07/2023 urina lysis panel , auto Unknown Analyte 5.0 Not Available [facility] [address], [address], 08/07/2023 09:53:53 08/07/19 24 08/07/2023 urina lysis panel , auto Unknown Analyte 5.0-8. 0 Not Available [facility] [address], [address], 08/07/2023 09:53:53 08/07/19 24 08/07/2023 urina lysis panel , auto Unknown Analyte 75 Kinga/ul (+) Not Available [facility] [address], [address], 08/07/2023 09:53:53 08/07/19 24 08/07/2023 urina lysis panel , auto Unknown Analyte Negati ve Not Available [facility] [address], [address], 08/07/2023 09:53:53 08/07/19 24 08/07/2023 urina lysis panel , auto Unknown Analyte Negati ve Not Available [facility] [address], [address], 08/07/2023 09:53:53 08/07/19 24 08/07/2023 urina lysis panel , auto Unknown Analyte Negati ve Not Available [facility] [address], [place], [address], 08/07/2023 09:53:53 08/07/19 24 08/07/2023 urina lysis panel , auto Unknown Analyte Negati ve Not Available [facility] [address], [place], [address], 08/07/2023 09:53:53 08/07/19 24 08/07/2023 urina lysis panel , auto Unknown Analyte Negati ve Not Available [facility] [address] [place] [address] Rd [address], [place], [address], 08/07/2023 09:53:53 08/07/19 24 08/07/2023 urina lysis panel , auto Unknown Analyte Normal Not Available [facility] [address], [place], [address], 08/07/2023 09:53:53 08/07/19 24 08/07/2023 urina lysis panel , auto Unknown Analyte Normal Not Available [facility] [address], [place], [address], 08/07/2023 09:53:53 08/07/19 24 08/07/2023 urina lysis panel , auto Unknown Analyte Negati ve Not Available [facility] [address], [place], [address], 08/07/2023 09:53:53 08/07/19 24 08/07/2023 urina lysis panel , auto Unknown Analyte Negati ve Not Available [facility] [address] [place] [address] Rd [address], [place], [address], 08/07/2023 09:53:53 08/07/19 24 08/07/2023 urina lysis panel , auto Unknown Analyte Normal Not Available [facility] [address], [place], [address], 08/07/2023 09:53:53 08/07/19 24 08/07/2023 urina lysis panel , auto Unknown Analyte Normal 1 mg/dl Not Available [facility] [address] [place] [address] Rd [address], [place], [address], 08/07/2023 09:53:53 08/07/19 24 08/07/2023 urina lysis panel , auto Unknown Analyte Negati ve Not Available [facility] [address], [place], [address], 08/07/2023 09:53:53 08/07/19 24 08/07/2023 urina lysis panel , auto Unknown Analyte Negati ve Not Available [facility] [address], [place], [address], 08/07/2023 09:53:53 08/07/19 24 08/07/2023 urina lysis panel , auto Unknown Analyte Negati ve Not Available [facility] [address] [place] [address] Rd [address], [place], [address], 08/07/2023 09:53:53 08/07/19 24 08/07/2023 urina lysis panel , auto Unknown Analyte Negati ve Not Available [facility] [address], [place], [address], 08/07/2023 09:53:53 02/10/2002/10/2024 PSA, serum or plasm a PSA 1.3 NG/mL 0.0 - 4.0 Not Available [facility] [address], [place], [address], 02/10/2024 09:23:30 02/10/2002/10/2024 urina lysis panel , auto Unknown Analyte Clean Catch Not Available [facility] [address], [place], [address], 02/10/2024 09:09:42 02/10/2002/10/2024 urina lysis panel , auto Unknown Analyte Yellow Not Available [facility] [address], [address], 02/10/2024 09:09:42 02/10/2002/10/2024 urina lysis panel , auto Unknown Analyte Clear Not Available [facility] [address], [address], 02/10/2024 09:09:42 02/10/2002/10/2024 urina lysis panel , auto Unknown Analyte 1.015 Not Available [facility] [address], [address], 02/10/2024 09:09:42 02/10/2002/10/2024 urina lysis panel , auto Unknown Analyte 1.003- 1.035 Not Available [facility] [address], [place], [address], 02/10/2024 09:09:42 02/10/2002/10/2024 urina lysis panel , auto Unknown Analyte 6.0 Not Available [facility] [address], [place], [address], 02/10/2024 09:09:42 02/10/2002/10/2024 urina lysis panel , auto Unknown Analyte 5.0-8. 0 Not Available [facility] [address] [place] [address] Rd [address], [place], [address], 02/10/2024 09:09:42 02/10/2002/10/2024 urina lysis panel , auto Unknown Analyte 500 Kinga/ul (++) Not Available [facility] [address], [place], [address], 02/10/2024 09:09:42 02/10/2002/10/2024 urina lysis panel , auto Unknown Analyte Negati ve Not Available [facility] [address], [place], [address], 02/10/2024 09:09:42 02/10/2002/10/2024 urina lysis panel , auto Unknown Analyte Negati ve Not Available [facility] [address], [place], [address], 02/10/2024 09:09:42 02/10/2002/10/2024 urina lysis panel , auto Unknown Analyte Negati ve Not Available [facility] [address], [place], [address], 02/10/2024 09:09:42 02/10/2002/10/2024 urina lysis panel , auto Unknown Analyte Negati ve Not Available [facility] [address], [place], [address], 02/10/2024 09:09:42 02/10/2002/10/2024 urina lysis panel , auto Unknown Analyte Negati ve Not Available [facility] [address] [place] [address] [address], [place], [address], 02/10/2024 09:09:42 02/10/2002/10/2024 urina lysis panel , auto Unknown Analyte Normal Not Available [facility] [address] [place] [address] [address], [place], [address], 02/10/2024 09:09:42 02/10/2002/10/2024 urina lysis panel , auto Unknown Analyte Normal Not Available [facility] [address], [place], [address], 02/10/2024 09:09:42 02/10/2002/10/2024 urina lysis panel , auto Unknown Analyte Negati ve Not Available [facility] [address] [place] [address] [address], [place], [address], 02/10/2024 09:09:42 02/10/2002/10/2024 urina lysis panel , auto Unknown Analyte Negati ve Not Available [facility] [address], [place], [address], 02/10/2024 09:09:42 02/10/2002/10/2024 urina lysis panel , auto Unknown Analyte 1 mg/dl Not Available [facility] [address], [place], [address], 02/10/2024 09:09:42 02/10/2002/10/2024 urina lysis panel , auto Unknown Analyte Normal 1 mg/dl Not Available [facility] [address], [place], [address], 02/10/2024 09:09:42 02/10/2002/10/2024 urina lysis panel , auto Unknown Analyte Negati ve Not Available [facility] [address], [place], [address], 02/10/2024 09:09:42 02/10/2002/10/2024 urina lysis panel , auto Unknown Analyte Negati ve Not Available [facility] [address], [place], [address], 02/10/2024 09:09:42 02/10/2002/10/2024 urina lysis panel , auto Unknown Analyte Negati ve Not Available [facility] [address], [place], [address], 02/10/2024 09:09:42 02/10/2002/10/2024 urina lysis panel , auto Unknown Analyte Negati ve Not Available [facility] [address], [place], [address], 02/10/2024 09:09:42 09/19/1909/18/2024 PSA, serum or plasm a PSA 1.9 NG/mL 0.0 - 4.0 Not Available [facility] [address], [address], 09/18/2024 09:19:17 09/19/1909/18/2024 urina lysis panel , auto Unknown Analyte Clean Catch Not Available [facility] [address], [place], [address], 09/18/2024 09:02:04 09/19/1909/18/2024 urina lysis panel , auto Unknown Analyte Yellow Not Available [facility] [address], [place], [address], 09/18/2024 09:02:04 09/19/1909/18/2024 urina lysis panel , auto Unknown Analyte Clear Not Available [facility] [address], [address], 09/18/2024 09:02:04 09/19/1909/18/2024 urina lysis panel , auto Unknown Analyte 1.010 Not Available [facility] [address], [address], 09/18/2024 09:02:04 09/19/19 25 09/18/2024 urina lysis panel , auto Unknown Analyte 1.003 - 1.030 Not Available [facility] [address], [place], [address], 09/18/2024 09:02:04 09/19/1909/18/2024 urina lysis panel , auto Unknown Analyte 5.0 Not Available [facility] [address], [place], [address], 09/18/2024 09:02:04 09/19/1909/18/2024 urina lysis panel , auto Unknown Analyte 5.0 - 8.0 Not Available [facility] [address], [place], [address], 09/18/2024 09:02:04 09/19/19 25 09/18/2024 urina lysis panel , auto Unknown Analyte 25 Kinga/uL Not Available [facility] [address], [place], [address], 09/18/2024 09:02:04 09/19/19 25 09/18/2024 urina lysis panel , auto Unknown Analyte Negati ve Not Available [facility] [address], [place], [address], 09/18/2024 09:02:04 09/19/1909/18/2024 urina lysis panel , auto Unknown Analyte Negati ve Not Available [facility] [address], [place], [address], 09/18/2024 09:02:04 09/19/19 25 09/18/2024 urina lysis panel , auto Unknown Analyte Negati ve Not Available [facility] [address], [place], [address], 09/18/2024 09:02:04 09/19/19 25 09/18/2024 urina lysis panel , auto Unknown Analyte Negati ve Not Available [facility] [address], [place], [address], 09/18/2024 09:02:04 09/19/19 25 09/18/2024 urina lysis panel , auto Unknown Analyte Negati ve Not Available [facility] [address], [place], [address], 09/18/2024 09:02:04 09/19/19 25 09/18/2024 urina lysis panel , auto Unknown Analyte Normal Not Available [facility] [address], [place], [address], 09/18/2024 09:02:04 09/19/19 25 09/18/2024 urina lysis panel , auto Unknown Analyte Normal Not Available [facility] [address], [place], [address], 09/18/2024 09:02:04 09/19/19 25 09/18/2024 urina lysis panel , auto Unknown Analyte Negati ve Not Available [facility] [address], [place], [address], 09/18/2024 09:02:04 09/19/1909/18/2024 urina lysis panel , auto Unknown Analyte Negati ve Not Available [facility] [address], [place], [address], 09/18/2024 09:02:04 09/19/19 25 09/18/2024 urina lysis panel , auto Unknown Analyte 1 mg/dL Not Available [facility] [address], [place], [address], 09/18/2024 09:02:04 09/19/1909/18/2024 urina lysis panel , auto Unknown Analyte Normal Not Available [facility] [address], [place], [address], 09/18/2024 09:02:04 09/19/1909/18/2024 urina lysis panel , auto Unknown Analyte Negati ve Not Available [facility] [address], [place], [address], 09/18/2024 09:02:04 09/19/1909/18/2024 urina lysis panel , auto Unknown Analyte Negati ve Not Available [facility] [address], [place], [address], 09/18/2024 09:02:04 09/19/1909/18/2024 urina lysis panel , auto Unknown Analyte Negati ve Not Available [facility] [address], [place], [address], 09/18/2024 09:02:04 09/19/1909/18/2024 urina lysis panel , auto Unknown Analyte Negati ve Not Available [facility] [address], [place], [address], 09/18/2024 09:02:04 02/05/20 23 02/04/2023 US, retro perit oneum , limit ed [facility] [address] [place] [address] [place] [address] Patifernando t Name: YO mancuso : [birth year] 49 Patifernando t 2 Orderi ng Provid er: NORA ELIJA [facility] EXAM DATE: 2022 EXAM: US KIDNEY BILAT WO [facility] AL INFORM ATION: Follow -up right upper pole lesion . TECHNI QUE: Multip le sonogr aphic images of both kidney s were obtain ed. COMPAR SERA: None. FINDIN GS: RIGHT KIDNEY : Length = 10.3 cm. No hydron ephros is or stone is seen. At the upper pole of the right kidney , the previo usly seen solid lesion is noted. It measur es approx imatel y 1.9 x 1.9 x 1.9 cm. It is stable . LEFT KIDNEY : Length = 10.6 cm. No hydron ephros is, mass or stone. IMPRES ANGELA: Stable solid lesion at the upper pole of the right kidney . Interp reted By: Juanjose Nolan MD Electr onical ly Signed By: Juanjose Nolan MD on 2022 3:[address] Radiology [facility] [address] [place] [address], [place], [address], 02/07/2023 16:23:57 02/10/20 24 02/10/2024 US, retro perit oneum , limit ed [facility] [address] [place] [address] [place] [address] Patifernando t Name: YO Gastelum t : [birth year] 49 Patifernando t 2 Orderi ng Provid er: [facility] EXAM DATE: 2023 EXAM: US KIDNEY BILAT WO [facility] R CLINIC AL INFORM ATION: Follow -up cyst TECHNI QUE: Multip le sonogr aphic images of both kidney s were obtain ed. COMPAR SERA: 2022 FINDIN GS: RIGHT KIDNEY : Length = 10.9 cm. No hydron ephros is, mass or stone. 2 x 1.7 x 1.6 cm cyst involv ing the upper pole. Stable LEFT KIDNEY : Length = 10.6 cm. No hydron ephros is, mass or stone. IMPRES ANGELA: Stable cyst involv ing the upper right kidney Interp reted By: Mick Mendosa MD Electr onical ly Signed By: Mick Mendosa MD on 2023 8:31 [facility] [address] [place] [address], [address], 02/17/2024 07:17:02 10/06/1910/05/2024 US, retro perit oneum , limit ed [address] [address] Patifernando t Name: YO ROMAN MS Patifernando t : [birth year] 49 Patifernando t 2 Orderi ng Provid er: NORA UMANA EXAM DATE: 2024 EXAM: US KIDNEY BILAT WO [facility] CLINIC AL INFORM ATION: Renal mass TECHNI QUE: Multip le sonogr aphic images of both kidney s were obtain ed. COMPAR SERA: 2023 FINDIN GS: RIGHT KIDNEY : Length = 10.4 cm. No hydron ephros is, mass or stone. Upper pole lesion noted measur ing 17 x 11 x 16 mm. LEFT KIDNEY : Length = 10.4 cm. No hydron ephros is, mass or stone. IMPRES ANGELA: Low echoge nicity lesion involv ing the upper right kidney is stable Interp reted By: Mick Mendosa MD Electr onical ly Signed By: Mick Mendosa MD on 025 10:48 AM [email or web address] [facility] Radiology [address], [address], 10/07/2024 07:56:38 Result Notes None recorded. Problems Name Problem SNOMED Code Status Onset Date Resolution Date Notes Provider Name and Address Organization Details Recorded Time Impotence Active 2015 From Automated Load;Prov ider: Nora Machuca Jr;St atus: Active Not Available [facility] 7 07:28:18 Lower urinary tract symptoms due to benign prostatic hypertrop hy 09247922122 101 Active 2015 From Automated Load;Prov ider: Nora Machuca Jr;St atus: Active Not Available [facility] 7 08:32:31 Benign prostatic hyperplas ia with outflow obstructi on 296776729 Active 2016 NORA MACHUCA JR, MD [address] [place] [address], [address] , [facility] 7 15:59:27 Retention of urine 523174381 Active 2016 NORA MACHUCA JR, MD [address] [place] [address], [address] , [facility] 7 11:30:41 Luke hematuria 990666574 Active 2018 NORA MACHUCA JR, MD [address] [place] [address], [address] , [facility] 9 10:40:28 Renal mass 269462949 Active 2019 NORA MACHUCA JR, MD [address] [place] [address], [address] , [facility] 0 09:41:27 Complex renal cyst Active 2020 NORA MACHUCA JR, MD [address] [place] [address], [address] , [facility] 1 09:53:34 Complex renal cyst 492014180 Active 2022 NORA MACHUCA JR, MD [address] [place] [address], [address] , [facility] 3 16:12:06 Cyst of kidney 287666897 Active 2024 NORA MACHUCA JR, MD [address] [place] [address], [address] , [facility] 5 09:18:48 Problem Notes None recorded. Procedures Surgical History Date Name Laterality Status Provider Name and Address Organization Details Recorded Time 05/01/19 19 TRANSURETHRAL RESECTION OF PROSTATE (SURG) completed Gisela Newsome [facility] 05/13/2018 12:48:09 Imaging Results None recorded. Procedure Notes None recorded. Medical Equipment None Reported. Allergies No known drug allergies Medications Name Sig Start Date Stop Date Status Note LastModified by Organization Details LastModified Time senna s 8.6-50mg tablets TAKE 1 TABLET BY MOUTH TWICE DAILY active Not Available Not Available No t Available losartan 50 mg tablet TAKE 1 TABLET BY MOUTH DAILY 2021 active Not Available Not Available Not Avai lable Zocor 20 mg tablet Daily 07/12 completed Duration : 30 days;Kerwin quency: daily;Me dication Descript ion: simvasta tin; Dosage:1 ; Route:or al; refills: 5; Quantity :30 tablet Not Available Not Available Not Available furosemid e 40 mg tablet 07/12 completed Not Available Not Available Not Available carvedilo l 25 mg tablet TAKE 1 AND 1/2 TABLETS BY MOUTH TWICE DAILY FOR BLOOD PRESSURE active Not Available Not Available No t Available clonidine HCl 0.1 mg tablet TAKE 1 TABLET BY MOUTH TWICE DAILY NEEDED FOR BLOOD PRESSURE GREATER THAN 170/90 2021 active Not Available Not Available Not Avai lable azithromy matt 250 mg tablet 07/18 completed Not Available Not Available Not Available hydrocodo ne 5 mg-acetam inophen 325 mg tablet 05/05 completed Not Available Not Available Not Available meloxicam 15 mg tablet 07/12 completed Not Available Not Available Not Available phenazopy ridine 200 mg tablet TAKE 1 TABLET BY MOUTH THREE TIMES DAILY NEEDED active Not Available Not Available No t Available isosorbid e mononitra te ER 30 mg tablet,ex tended release 24 hr TAKE 1 TABLET BY MOUTH DAILY active Not Available Not Available No t Available amlodipin e 5 mg tablet TAKE 1 TABLET BY MOUTH DAILY active Not Available Not Available No t Available acyclovir 400 mg tablet TAKE 1 TABLET BY MOUTH FOUR TIMES DAILY 07/12 completed Not Available Not Available Not Available ciproflox acin 500 mg tablet Take 1 tablet every 12 hours by oral route. 02/05 completed Not Available Not Available Not Available simvastat in 40 mg tablet TAKE 1 TABLET BY MOUTH EVERY EVENING active Not Available Not Available No t Available bethanech ol chloride 25 mg tablet Take 1 tablet 3 times a day by oral route for 30 days. 08/23 completed Not Available Not Available Not Available isosorbid e mononitra te ER 60 mg tablet,ex tended release 24 hr TAKE 1 TABLET BY MOUTH DAILY active Not Available Not Available No t Available tamsulosi n 0.4 mg capsule TAKE 1 CAPSULE BY MOUTH DAILY 2024 active Not Available Not Available Not Avai lable hydrocodo ne 7.5 mg-acetam inophen 325 mg tablet 02/05 completed Not Available Not Available Not Available oseltamiv ir 75 mg capsule 07/12 completed Not Available Not Available Not Available minoxidil 10 mg tablet TAKE 1 TABLET BY MOUTH TWICE DAILY active Not Available Not Available No t Available Diovan 80 mg capsule Daily 07/12 completed Frequenc y: daily;Me dication Descript ion: valsarta n; Dosage:1 ; Route:or al; refills: 0; Quantity :30 capsule Not Available Not Available Not Available furosemid e 20 mg tablet TAKE 1 TABLET BY MOUTH DAILY active Not Available Not Available No t Available Viagra 100 mg tablet As needed 07/12 completed Instruct ions: 1/2 to 1 tab as needed for ED;Frequ ency: prn;Medi cation Descript ion: sildenaf il; Dosage:1 /2-1; Route:or al; refills: 11; Quantity :6 tablet Not Available Not Available Not Available polyethyl noble glycol 3350 17 gram/dose oral powder TAKE 17 GRAMS DISSOLVE D IN WATER BY MOUTH ONCE DAILY active Not Available Not Available No t Available lisinopri l 40 mg tablet TAKE 1 TABLET BY MOUTH TWICE DAILY FOR BLOOD PRESSURE active Not Available Not Available No t Available cefdinir 300 mg capsule Take 1 capsule every 12 hours by oral route for 10 days. 12/27 completed Not Available Not Available Not Available finasteri de 5 mg tablet TAKE 1 TABLET BY MOUTH ONCE DAILY 2024 active Not Available Not Available Not Avai lable metoclopr amide 10 mg tablet 07/12 completed Not Available Not Available Not Available amoxicill in 500 mg-potass ium clavulana te 125 mg tablet TAKE 1 TABLET BY MOUTH TWICE DAILY active Not Available Not Available No t Available nitrofura ntoin monohydra te/macroc rystals 100 mg capsule Take 1 capsule every 12 hours by oral route for 10 days. 12/27 completed Not Available Not Available Not Available aspirin active Medicati on Descript ion: aspirin; refills: 0 Not Available Not Available Not Available Coreg 07/12 completed Medicati on Descript ion: carvedil ol; Route:or al; refills: 0 Not Available Not Available Not Available minoxidil 05/05 completed Medicati on Descript ion: minoxidi l; refills: 0 Not Available Not Available Not Available simvastat in 07/12 completed Medicati on Descript ion: simvasta tin; Route:or al; refills: 0 Not Available Not Available Not Available Pataday 0.2 % eye drops 05/05 completed Not Available Not Available Not Available GaviLyte- G 236 gram-22.7 4 gram-6.74 gram-5.86 gram oral solution 07/12 completed Not Available Not Available Not Available Vitals Date Recorded Body height Body mass index (BMI) Body weight Provider Name and Address Organization Details Last Updated DateTime 08/07/2023 177.8 cm 33 kg/m2 616645.25 g Aundrea Dale [facility] 08/07/2023 09:07:18 Date Recorded Body height Body mass index (BMI) Body weight Provider Name and Address Organization Details Last Updated DateTime 09/18/2024 177.8 cm 33.7 kg/m2 279879.21 g Yesenia Larson [facility] 09/18/2024 09:11:30 Date Recorded Body height Body mass index (BMI) Body weight Provider Name and Address Organization Details Last Updated DateTime 10/08/2022 177.8 cm 33 kg/m2 971175.25 g Aundrea Dale [facility] 10/08/2022 10:12:43 Date Recorded Body height Body mass index (BMI) Body weight Provider Name and Address Organization Details Last Updated DateTime 02/04/2023 177.8 cm 33 kg/m2 170174.25 g Lilian Khan [facility] 02/04/2023 13:28:49 Date Recorded Body height Body mass index (BMI) Body weight Provider Name and Address Organization Details Last Updated DateTime 02/10/2024 177.8 cm 33.7 kg/m2 859658.21 g Lina Mcgrath [facility] 02/10/2024 08:56:59 Social History Question Answer Notes LastModified by Organizat ion Details LastModified Time Tobacco Smoking Status Never [facility]/24/2016 16:23:15 How Much Tobacco Do You Chew? None Information not available 05/08/2018 What Was The Date Of Your Most Recent Tobacco Screening? 09/18/2024 [email or web address] Information not available 09/18/2024 How Much Tobacco Do You Smoke? No [email or web address] Information not available 02/05/2019 Sex: Unknown Functional Status Question Answer Note LastModified by Organization D etails LastModified Time What is your level of alcohol consumption? None [email or web address] Information not available 04/24/2016 Mental Status None recorded. Family History Relationship Description Onset Age of this Age Resolved Age Notes LastModified by Organization Details LastModified Time Father No current problems or disability [email or web address] Not available 05/03 14:55:51 Mother No current problems or disability [email or web address] Not available 05/03 14:55:51 Medical History Condition Response High Cholesterol Y Anemia Y Sleep Apnea Y Hypertension Y Past Encounters Encounter ID Performer Location Encounter Start Date Encounter Closed Date Diagnosis/Indication Diagnosis SNOMED-CT Code Diagnosis ICD10 Code Diagnosis IMO Codes Diagnosis Note [id number] MD [facility] [address] [address] 04/24/2016 15:38:56 04/24/2016 17:15:24 Retention of urine 301786757 R33.9 Benign pro static hyperplasia with outflow obstruction 692356889 N40.1 [id number] MD [facility] [address] [address] 05/03/2016 14:30:56 05/03/2016 16:41:50 Acute retention of urine 942120332 R33.8 Benign pro static hyperplasia with outflow obstruction 246972621 N40.1 [id number] NORA MACHUCA JR, MD [facility] [address] [place] [address] 0 05/10/2016 15:28:58 05/11/2016 13:13:47 Benign prostatic hyperplasia with outflow obstruction 060946830 N40.1 Retention of urine 08567 4002 R33.9 Luke hematuria 25967195 5 R31.0 [id number] NORA MACHUCA JR, MD [facility] [address] 0 05/14/2016 11:15:10 05/15/2016 11:00:21 Benign prostatic hyperplasia with outflow obstruction 073112314 N40.1 Retention of urine 65686 4002 R33.9 [id number] NORA MACHUCA JR, MD SURGERY SCHEDULE [address] [place] [address] 1 05/21/2016 10:45:50 05/21/2016 10:49:03 [id number] NORA MACHUCA JR, MD [facility] [address],[place] [address] 0 05/23/2016 09:13:26 05/23/2016 10:09:45 Benign prostatic hyperplasia with outflow obstruction 277078800 N40.1 Retention of urine 93790 4002 R33.9 [id number] NORA MACHUCA JR, MD [facility] [address],[place] [address] 0 05/24/2016 15:55:57 05/25/2016 11:12:43 Benign prostatic hyperplasia with outflow obstruction 854181617 N40.1 Retention of urine 62100 4002 R33.9 [id number] NORA MACHUCA JR, MD [facility] [address],[place] [address] 0 05/28/2016 11:02:29 05/29/2016 13:15:42 Benign prostatic hyperplasia with outflow obstruction 549447183 N40.1 Retention of urine 19886 4002 R33.9 [id number] NORA MACHUCA JR, MD [facility] [address],[place] [address] 0 06/14/2016 15:58:23 06/21/2016 14:09:41 Urinary tract infectious disease 91397740 N39.0 Benign pro static hyperplasia with outflow obstruction 712981202 N40.1 [id number] NORA MACHUCA JR, MD [facility] [address],[place] [address] 0 08/23/2016 15:57:13 08/24/2016 10:25:25 Benign prostatic hyperplasia with outflow obstruction 672152285 N40.1 [id number] NORA MACHUCA JR, MD [facility] [address],[place] [address] 0 12/27/2016 10:02:17 12/31/2016 08:55:18 Benign prostatic hyperplasia with outflow obstruction 704360604 N40.1 Impotence 123171517 N52. 9 [id number] NORA MACHUCA JR, MD [facility] [address],[place] [address] 0 08/22/2017 13:43:12 08/22/2017 15:55:45 Benign prostatic hyperplasia with outflow obstruction 101391668 N40.1 Impotence 279554084 N52. 9 [id number] NORA MACHUCA JR, MD [facility] [address] [address] 0 04/24/2018 11:00:01 04/24/2018 13:22:32 Benign prostatic hyperplasia with outflow obstruction 287942949 N40.1 Retention of urine 20418 4002 R33.9 Luke hematuria 45994610 5 R31.0 [id number] NORA MACHUCA JR, MD [facility] [address],[place] [address] 0 05/05/2018 09:38:39 05/05/2018 10:52:19 Lower urinary tract symptoms due to benign prostatic hypertrophy 9123918606 9101 N40.1 [id number] NORA MACHUCA JR, MD [facility] [address] [place] [address] RD,[address] [place] [address] 05/08/2018 09:46:19 05/08/2018 11:09:39 Benign prostatic hyperplasia with outflow obstruction 037323798 N40.1 Retention of urine 66366 4002 R33.9 [id number] NORA MACHUCA JR, MD [facility] [address] [place] [address] RD,[address] [place] [address] 0 08/07/2018 10:21:31 08/07/2018 10:49:52 Lower urinary tract symptoms due to benign prostatic hypertrophy 4555638949 9101 N40.1 [id number] NORA MACHUCA JR, MD [facility] [address] [place] [address] RD,[place] [address] 0 02/05/2019 09:52:09 02/05/2019 10:41:59 Benign prostatic hyperplasia with outflow obstruction 930726771 N40.1 Luke hematuria 84485835 5 R31.0 [id number] NORA MACHUCA JR, MD [facility] [address] [place] [address] RD,[place] [address] 10/16/2019 10:09:52 10/16/2019 11:06:42 Benign prostatic hyperplasia with outflow obstruction 985522301 N40.1 [id number] NORA MACHUCA JR, MD [address] [place] [address] 01/13/2020 09:05:11 01/14/2020 12:33:39 Renal mass 709310219 N28.89 Benign pro static hyperplasia with outflow obstruction 245947458 N40.1 [id number] NORA MACHUCA JR, MD [facility] [address] [place] [address] 08/03/2020 09:10:26 08/05/2020 17:09:54 Benign prostatic hyperplasia with outflow obstruction 500150602 N40.1 Luke hematuria 36355712 5 R31.0 Complex renal cyst 34296 23168 8435986 N28.1 [id number] NORA MACHUCA JR, MD [facility] [address] [place] [address] 07/12/2021 10:13:54 07/19/2021 14:10:49 Benign prostatic hyperplasia with outflow obstruction 599232004 N40.1 [id number] NORA MACHUCA JR, MD [facility] [address] [place] [address] 07/18/2022 09:03:37 07/24/2022 04:24:16 Benign prostatic hyperplasia with outflow obstruction 677931683 N40.1 Renal mass 311152216 N28 .89 [id number] NORA MACHUCA JR, MD [facility] [address] 0 10/08/2022 09:08:39 10/08/2022 14:25:29 Acute urinary tract infection [id number] N39.0 Benign pro static hyperplasia with outflow obstruction [id number] N40.1 Complex renal cyst 36942 1001 N28.1 [id number] NORA MACHUCA JR, MD [facility] [address],[place] [place] [address] 0 02/04/2023 10:03:05 02/04/2023 11:31:43 Benign prostatic hyperplasia with outflow obstruction [id number] N40.1 Renal mass 121022472 N28 .89 Lower urin noah tract symptoms due to benign prostatic hypertrophy [id number] 9101 N40.1 [id number] NORA MACHUCA JR, MD [facility] [address] [place] [address] 08/07/2023 08:55:15 08/07/2023 09:16:02 Benign prostatic hyperplasia with outflow obstruction [id number] N40.1 [id number] NORA MACHUCA JR, MD [facility] [address] [place] [address] 02/10/2024 08:28:59 02/10/2024 17:17:23 Benign prostatic hyperplasia with outflow obstruction [id number] N40.1 Complex renal cyst 51054 1001 N28.1 [id number] NORA MACHUCA JR, MD [facility] [address] [place] [address] 09/18/2024 08:51:22 09/18/2024 09:26:39 Benign prostatic hyperplasia with outflow obstruction [id number] N40.1 - Continue finasterid e therapy. - Annual follow-up for symptoms. Cyst of kidney [id number] N28.1 59290 - Periodic renal ultrasound . Prostate s pecific antigen above reference range 911836475 R97.20 [id number] - Schedule PSA check at patient's request. Health Concerns Section Related Observation LastModified by Organization Detai ls LastModified Time None Recorded Concern Status LastModified by Organization Details LastModified Time None Recorded Advance Directives Directive None Recorded Payers Insurance Date Sequence Insurance Name Policy Number Policy Victoria Covered Member ID Victoria Member ID Guarantor Name 10/02/2024 1 [place] Aldo Wills [id number] Aldo Wills 10/02/2024 2 AARP (MEDICARE SUPPLEMENT) Aldo Wills [id number] Aldo Wills 09/18/2024 1 [facility] [id number] Aldo Wills [id number] Aldo Wills Notes Date Note Type Note Provider Name and Address Organization Details Recorded Time 10/08/2022 text/html patient is in today for follow-up of BPH and luke hematuria. He underwent cystoscopy, clot evacuation and TURP/vaporization of his prostate May 01, 2018. patient has been voiding well with a good urine stream. He denies hematuria. Minimal lower urinary tract symptoms. Nocturia 1. Patient continues to have intermittent gross hematuria which is cleared on finasteride therapy. patient was seen in the emergency room closer to home for chest pain 2019. CT scan of the abdomen and pelvis was performed which shows a small right renal mass which was incompletely characterized without contrast. He denies flank pain and hematuria. He denies history of kidney stones. renal mass protocol CT scan was performed January 2020 showing high attenuation cyst at the upper pole of the right kidney Renal ultrasound is reviewed today showing possible solid renal mass. CT scan renal mass protocol July 2022 reveals hi attenuation cyst. Patient has a dysuria today. He is on Augmentin without improvement. NORA MACHUCA JR, MD [address] [place], [address], [facility] 10/14/2022 16:12:22 02/04/2023 text/html patient is in today for follow-up of BPH and luke hematuria. He underwent cystoscopy, clot evacuation and TURP/vaporization of his prostate May 01, 2018. patient has been voiding well with a good urine stream. He denies hematuria. Minimal lower urinary tract symptoms. Nocturia 1. Patient continues to have intermittent gross hematuria which is cleared on finasteride therapy. patient was seen in the emergency room closer to home for chest pain 2019. CT scan of the abdomen and pelvis was performed which shows a small right renal mass which was incompletely characterized without contrast. He denies flank pain and hematuria. He denies history of kidney stones. renal mass protocol CT scan was performed January 2020 showing high attenuation cyst at the upper pole of the right kidney Renal ultrasound is reviewed today showing possible solid renal mass. CT scan renal mass protocol July 2022 reveals hi attenuation cyst. Patient has a dysuria today. He is on Augmentin without improvement. NORA MACHUCA JR, MD [address] [place], [address], [facility] 02/10/2023 16:20:37 08/07/2023 text/html patient is in today for follow-up of BPH and luke hematuria. He underwent cystoscopy, clot evacuation and TURP/vaporization of his prostate May 01, 2018. patient has been voiding well with a good urine stream. He denies hematuria. Minimal lower urinary tract symptoms. Nocturia 1. Patient continues to have intermittent gross hematuria which is cleared on finasteride therapy. patient was seen in the emergency room closer to home for chest pain 2019. CT scan of the abdomen and pelvis was performed which shows a small right renal mass which was incompletely characterized without contrast. He denies flank pain and hematuria. He denies history of kidney stones. renal mass protocol CT scan was performed January 2020 showing high attenuation cyst at the upper pole of the right kidney Renal ultrasound is reviewed today showing possible solid renal mass. CT scan renal mass protocol July 2022 reveals hi attenuation cyst. Patient has a dysuria today. He is on Augmentin without improvement. NORA MACHUCA JR, MD [address] [place], [address], [facility] 08/11/2023 08:31:08 02/10/2024 text/html patient is in today for follow-up of BPH and luke hematuria. He underwent cystoscopy, clot evacuation and TURP/vaporization of his prostate May 01, 2018. patient has been voiding well with a good urine stream. He denies hematuria. Minimal lower urinary tract symptoms. Nocturia 1. Patient continues to have intermittent gross hematuria which is cleared on finasteride therapy. patient was seen in the emergency room closer to home for chest pain 2019. CT scan of the abdomen and pelvis was performed which shows a small right renal mass which was incompletely characterized without contrast. He denies flank pain and hematuria. He denies history of kidney stones. renal mass protocol CT scan was performed January 2020 showing high attenuation cyst at the upper pole of the right kidney Renal ultrasound February 10, 2024 shows stable cyst involving the upper right kidney. NORA MACHUCA JR, MD [address] [place] [address], [phone], [facility] 02/17/2024 07:18:38 09/18/2024 text/html The patient is a 73-year-old male presenting for follow-up of benign prostatic hyperplasia and monitoring of hematuria. He has a history of benign prostatic hyperplasia treated with TURP in 2018 and is on finasteride. He reports no hematuria and denies new urinary symptoms. His history includes renal cysts and past elevated PSA, normal in January. NORA MACHUCA JR, MD [address] [place], [address], [facility] 09/21/2024 06:48:57
--- NOTE | 2025-03-16 10:15 | CT_ITS ---
FINAL REPORT TECHNIQUE: Axial CT images of the abdomen were obtained with IV contrast only. Coronal reformatted images were also obtained. This study was performed with techniques to keep radiation doses as low as reasonably achievable (ALARA). Individualized dose reduction techniques using automated exposure control or adjustment of mA and/or kV according to the patient''s size were employed. CLINICAL HISTORY: rule out mass on adrenal gland COMPARISON: 07/11/2022 FINDINGS: The lung bases are clear. The liver is fatty infiltrated without focal lesion. The gallbladder appears normal without evidence of gallstones. The pancreas appears normal. The spleen size is within normal limits. There are very small bilateral hypodense renal lesions, likely cysts. There is a 20 mm lesion in the upper pole of the right kidney. Hounsfield units are not consistent with a cyst. Small solid lesion is not excluded. GI tract demonstrates a normal appendix. There is no evidence of small-bowel obstruction. Moderate amount of retained stool is noted in the included colon. There is no lymphadenopathy. No evidence of ascites. There is no acute osseous abnormality. IMPRESSION: No adrenal nodule or mass identified. 2 cm lesion upper pole right kidney unchanged in size since 2022 but not a simple cyst. Consider CT renal mass protocol in a nonemergent basis. Reviewed, Interpreted and Dictated by Jeannette Lopez MD Transcribed by Clari Beckham Authenticated and [facility]
[2025-03-16 10:30] LABS: Blood Urea Nitrogen 18 mg/dl (9-20); Creatinine,Serum 1.30 mg/dl (0.66-1.25); Estimated Glomerular Filt Rate 54 ml/min (>60); GFR (African American) 65 ML/MIN (>60)
[2025-03-16] MEDS: IOPAMIDOL-370 (76%);100ML BOTTLE 75 ML IV (11:08)
[2025-03-16] MEDS: SODIUM CHLORIDE 0.9% 10ML SYR (RAD ONLY) 10 ML IV (11:08)
== END 2025-03-16 23:59 | disposition home or self-care (01) ==
LOC: RAD 10:02
PROVIDERS: PCP Nurse Practitioner Family; Visit Provider Internal Medicine
DX: N28.89 Other specified disorders of kidney and ureter (principal); E27.8 Other specified disorders of adrenal gland
CPT/HCPCS: 36415; 74160; 82565; 84520; Q9967

== ENCOUNTER 2025-04-05 08:05 | Outpatient (CLI) | payer MEDICARE, SELFPAY ==
--- OUTSIDE RECORDS SUMMARY | 2025-04-05 08:10 | XMS_ITS | Encounter Summary ---
Author Organization [employer] ([place], [place], [place], [place], [place]) Address [address] [place] [address] Care Team Providers Care Boat Loader Name Role Phone Unavailable Primary Care Provider Unavailabl e Encounter Details Date Type Department Care Team (Late st Contact Info) Description 05/01/2018 Transcribed Document [facility] Family Medicine [facility] [place] [address] ProviderCaroline MD [address] [place] [address] Social History Tobacco Use Types [...] Caroline Yang MD - 05/01/2018 7:41 AM TECHNOLOGY APPLICATIONS TEACHER [facility] Main OR IntraOp Summary Primary Physician: NORA MACHUCA JR, MD-URO Finalized Date/Time: 05/04/18 16:19:19 Pt. Name: ALEKSANDR LOPEZ BENOIT GutiérrezB./Sex: 1950 Male Med Rec #: [id number] Physician: NORA MACHUCA JR, MD-URO Financial #: [id number] Pt. Type: O Room/Bed: /1 Admit/Disch: 05/01/18 05:38:00 - 05/01/18 10:03:00 Institution: [facility] IntraOp Case Attendance Entry 1 Entry 2 Entry 3 Case Attendee NORA MACHUCA JR, BOWEN, JON B, MD VON KUSTER JONAS MD-HELEN HOOD CRNA Role Performed Surgeon/Proceduralist, Anesthesiologist of BALL FRINGE MACHINE OPERATOR/Nurse Campus Director First Record Time In 05/01/18 07:24:00 05/01/18 [...] Busby, DEIDRE MARY ROBERT, RN Role Performed Patient Access, First Scrub, First Scrub, Second Time In 05/01/18 07:24:00 05/01/18 07:24:00 05/01/18 07:24:00 Time Out 05/01/18 08:14:00 05/01/18 08:14:00 05/01/18 08:14:00 Procedure Prostate Transurethral Prostate Transurethral Prostate Transurethral Resection Resection Resection Other Attendee Superficial Wound Closed By: Last Modified By: Shannan Busby RN Poff, Janie, RN Poff, Janie, RN 05/01/18 08:24:06 05/01/18 08:24:06 05/01/18 08:24:06 [facility] IntraOp Case Attendance Audit 05/01/18 08:24:06 Manager Assurance: JIMMY Modifier: JIMMY 1 <+> Time Out [...] <*> Procedure Prostate Transurethral Resection 05/01/18 08:14:44 Manager Assurance: JOSE GUADALUPE Modifier: JIMMY 1 <*> Procedure Prostate Transurethral Resection 2 <+> Time In 2 <*> Procedure Prostate Transurethral Resection 3 <+> Time In 3 <*> Procedure Prostate Transurethral Resection 4 <+> Time In 4 <*> Procedure Prostate Transurethral Resection 5 <+> Time In 5 <*> Procedure Prostate Transurethral Resection 6 <+> Time In 6 <*> Procedure Prostate Transurethral Resection [facility] IntraOp Case Times Entry 1 Patient In Room Time 05/01/18 07:24:00 Out Room Time 05/01/18 08:14:00 Anesthesia Start Time 05/01/18 07:24:00 Stop Time 05/01/18 08:14:00 Surgery / Procedure Times Start Time 05/01/18 07:41:00 Stop Time 05/01/18 08:05:00 Last Modified By: Shannan Busby RN 05/01/18 08:14:55 [facility] IntraOp Case Times Audit 05/01/18 08:14:55 Manager Assurance: JOSE GUADALUPE Modifier: JIMMY <+> 1 Out Room Time <+> 1 Stop Time <+> 1 Stop Time [facility] IntraOp Cautery Entry 1 ESU Identification Cautery Type Other ID Number [id number] ID Type Hospital Number Cautery Settings ESU Grounding Pad Grounding Pad Site Warm, dry and intact Skin Condition Before Cautery Grounding Pad Site Warm, dry and intact Skin Condition After Cautery Last Modified By: Shannan Busby RN 05/01/18 08:24:02 [facility] IntraOp Cautery Audit 05/01/18 08:24:02 Manager Assurance: JIMMY Modifier: JIMMY <+> 1 ID Number [facility] IntraOp Communication Entry 1 Communication To Family/Significant other Comment PROCEDURE START Communication By URSULA CANTU RN Date and Time 05/01/18 07:40:00 Last Modified By: Shannan Busby RN 05/01/18 07:57:29 [facility] IntraOp Departure from OR Entry 1 Integumentary Assessment Integumentary WDL Assessment WDL Transfer/Handoff Transfer to PACU Phase I Handoff Method Phone call Post-op Transport Stretcher/Gurney Via Patient Transport JONAS COOLEY Accompanied by CLARA HOOD, URSULA CANTU RN Last Modified By: Shannan Busby RN 05/01/18 08:14:00 [facility] IntraOp Fire Risk Assessment Entry 1 [...] Safety Precautions Followed Last Modified By: Shannan Bubsy RN 05/01/18 08:15:36 [facility] IntraOp General Case Die Operator 1 Case Information OR Cysto [facility] Case Level 1 Room Verified Yes Wound Class II - Clean-Contaminated Specialty SN Urology Anesthesia Type General ASA Class 3 Diagnosis Preop Diagnosis BPH WITH LOWER URINARY TRACT SYMPTOMS Postop Same As Preop Yes Postop Diagnosis BPH WITH LOWER URINARY TRACT SYMPTOMS Last Modified By: Shannan Busby RN 05/01/18 08:16:39 [facility] IntraOp General Case Data Audit 05/01/18 08:16:39 Manager Assurance: JIMMY Modifier: JIMMY <+> 1 Postop Same As Preop <+> 1 Preop Diagnosis <+> 1 Postop Diagnosis [facility] IntraOp Intraoperative Assessment Entry 1 Handoff [...] Modified By: Shannan Busby RN 05/01/18 08:16:55 [facility] IntraOp Intraoperative Equipment Entry 1 Type Monitoring Equipment Intraop Monitoring Electrocardiogram Three lead placement (ECG) Electrode Placement Blood Pressure Non-Invasive BP Device Source Antiembolic Devices Antiembolic Devices Sequential compression device, knee high Antiembolic Device Bilateral Location Antiembolic Device [id number] ID Number Scopes Photo/Video Documentation Photo No Video No Intraop Equipment SEQUENTIAL COMPRESSION Comment DEVICES ON AND IN OPERATION PRIOR TO INDUCTION. Last Modified By: Shannan Busby RN 05/01/18 08:18:04 [facility] IntraOp Medication Admin Entry 1 Entry 2 Medication/Irrigant B&O 16A Suppository - NOEMY IRR NACL 0.9PCT [id number] 3000ML BG --[id number] Combo Med List Time Administered 05/01/18 08:05:00 05/01/18 07:41:00 Route of RECTAL IRRIGATION Administration Dose Dose 60 Unit of Measure mg Volume Administered By NORA MACHUCA JR, Poff, Janie, RN MD-URO Procedure Irrigation Irrigant Volume In 6000 mL Irrigant Volume Out 6000 mL Last Modified By: Shannan Busby RN Poff, Janie, RN 05/01/18 08:21:17 05/01/18 08:21:17 [facility] IntraOp Patient Positioning Entry 1 Procedure [...] Modified By: URSULA CANTU RN 05/01/18 07:52:02 [facility] IntraOp Sign In Entry 1 Patient, [...] Modified By: URSULA CANTU RN 05/01/18 07:46:40 [facility] IntraOp Sign Out Entry 1 RN [...] Modified By: Shannan Busby RN 05/01/18 08:21:29 [facility] IntraOp Skin Prep Entry 1 Procedure Prostate Transurethral Resection Prescribed Yes Pre-Surgical Prep Completed Prep Area GENITALIA Intraop Prep Integumentary WDL Assessment WDL Prep Agents Betadine solution Prep by Shannan Busby RN Hair Removal Methods No hair removal performed Last Modified By: Shannan Busby RN 05/01/18 08:21:57 [facility] IntraOp Surgical Procedures Entry 1 Procedure Prostate Transurethral Resection Additional CYSTOSCOPY WITH GYRUS Procedure BUTTON TRANSURETHRAL Description RESECTION OF THE PROSTATE Primary Procedure Yes Primary Surgeon NORA MACHUCA JR, MD-URO Start 05/01/18 07:41:00 Stop 05/01/18 08:05:00 Anesthesia Type General Specialty SN Urology Wound Class II - Clean-Contaminated Last Modified By: Shannan Busby RN 05/01/18 08:22:06 General Comments: CEFOXITIN ADMINISTERED AT 0730 [facility] IntraOp Surgical Procedures Audit 05/01/18 08:22:06 Manager Assurance: ALONDRAJarred Modifier: JIMMY <+> 1 Stop [facility] IntraOp Temp Regulation Devices Entry 1 Temp Regulation Temperature Warm blankets Regulation Device Temperature Upper body Regulation Site Temperature Shannan Busby RN Regulation Device Applied by Temperature monitored per Regulation Comment anesthesia, mick carvalho available Last Modified By: Shannan Busby RN 05/01/18 08:22:17 [facility] IntraOP Time Out Entry 1 Procedure [...]
--- OUTSIDE RECORDS SUMMARY | 2025-04-05 08:10 | XMS_ITS | Encounter Summary ---
Author Organization [employer] ([place], [place], [place], [place], [place]) Address [address] [place] [address] Care Team Providers Care Guest Service Agent Name Role Phone Unavailable Primary Care Provider Unavailabl e Encounter Details Date Type Department Care Team (Late st Contact Info) Description 05/10/2018 Transcribed Document [facility] Family Medicine [facility] [place] [address] ProviderCaroline MD [address] [place] [phone] Social History Tobacco Use Types Packs/Day Years [...] Caroline Yang MD - 05/10/2018 12:41 PM NURSE OB DATE OF PROCEDURE:05/01/2018 PREOPERATIVE DIAGNOSIS(ES): REASON FOR [...] without any bleeding. At this point, a 22-Upper Sorbian Guidry catheter was placed. Anesthesia was reversed. The patient was taken to recovery room in stable condition. Titus Cervantes Jr., M.D. Dict: 05/10/2018 12:41:31 Trans: 05/10/2018 13:38:37 CC1: Titus Cervantes Jr., M.D. documented in this encounter Plan of Treatment Not on file documented as of this encounter Visit Diagnoses Not on filedocumented in this encounter
--- OUTSIDE RECORDS SUMMARY | 2025-04-05 08:10 | XMS_ITS | Encounter Summary ---
Author Organization [facility] Address [address] [place] [address] Care Team Providers Care Landscaping Supervisor Name Role Phone Tavares Johnston MD Primary Care Provider [phone] Encounter Details Date Type Department Care Team (Late st Contact Info) Description 05/23/2011 [facility] Pre-Admission Testing [address] [place] [address] Stacy Mcbride Social History Tobacco [...] on filedocumented in this encounter Care Teams Landscaping Supervisor Relationship Specialty Start Date End Date Tavares Johnston MD [address] [place] [id number] PCP - General Family Medicine 05/22/11 documented as of this encounter
--- OUTSIDE RECORDS SUMMARY | 2025-04-05 08:10 | XMS_ITS | Clinical Summary ---
Author Organization Address [facility] [place] [address] Care Team Providers Care Workers Compensation Claims Examiner Name Role Phone Unavailable Primary Care Provider [...] therelease of HIV test results or diagnoses. [id number] Social History Tobacco Use Types Packs/Day Years Used Date Smoking Tobacco: Never Assessed Sex and Gender Information Value Date Recorded Sex Assigned at Not on file Legal Sex Male 9:14 PM EST Gender Identity Not on file Sexual Orientation Not on file Plan of Treatment Not on file
--- OUTSIDE RECORDS SUMMARY | 2025-04-05 08:10 | XMS_ITS | Encounter Summary ---
Author Organization [employer] ([place], [place], [place], [place], [place]) Address [address] [place] [address] Care Team Providers Care Eligibility Clerk Name Role Phone Unavailable Primary Care Provider Unavailabl e Encounter Details Date Type Department Care Team (Late st Contact Info) Description 05/01/2018 Transcribed Document [facility] [place] [facility] [place] [address] ProviderCaroline MD [facility] [place] [address] Social History Tobacco Use Types [...] Caroline Yang MD - 05/01/2018 7:14 AM BUTCHER SUPERVISOR Patient: ALDO LOPEZ Age: 67 years Sex: [...] Problems Hypertrophy of prostate / SNOMED CT 204318526 / Confirmed Impotence / SNOMED CT 5468041620 / Confirmed HTN (hypertension) / SNOMED CT 0916680143 / Confirmed High blood cholesterol / SNOMED CT 27675436 / Confirmed History of obstructive sleep apnea / IMO 09124085 / Confirmed History of urinary retention / SNOMED CT 518699768 / Confirmed Bacterial UTI / SNOMED CT 867322376 / Confirmed Anemia / SNOMED CT 865978567 / Confirmed, Active Problems (8) Anemia Bacterial [...] EST Height Source Measured Height Entry Format [place] Height/Length, MACEDONIAN (ft) 0 ft Height/Length MACEDONIAN 70 Inch CLINICALHEIGHT 177.8 cm [place] Body Weight 72 kg Weight Source Standing scale Weight Entry Format [place] Weight [place]i lb 231.8 lb CLINICALWEIGHT 105.36 kg Body [...] of motion, Normal strength. Integumentary: Warm, Dry, Amory. Neurologic: Alert, Oriented. Psychiatric: Cooperative, Appropriate mood [...]
--- OUTSIDE RECORDS SUMMARY | 2025-04-05 08:10 | XMS_ITS | Encounter Summary ---
Author Organization [employer] ([place], [place], [place], [place], [place]) Address [address] [place] [address] Care Team Providers Care Textile Scrap Salvager Name Role Phone Unavailable Primary Care Provider Unavailabl e Encounter Details Date Type Department Care Team (Late st Contact Info) Description 05/01/2018 Transcribed Document [facility] Family Medicine [facility] [place] [address] ProviderCaroline MD [facility] [place] [address] Social History Tobacco Use Types [...] Caroline Yang MD - 05/01/2018 7:41 AM SOLAR PANEL INSTALLER [facility] Main OR Preop Summary Primary Physician: NORA MACHUCA JR, MD-URO Finalized Date/Time: 05/01/18 12:06:08 Pt. Name: JOHN ALDOIris LABOY D.O.B./Sex: 1950 Male Med Rec #: [id number] Physician: NORA MACHUCA JR, MD-URO Financial #: [id number] Pt. Type: O Room/Bed: /1 Admit/Disch: 05/01/18 05:38:00 - Institution: [facility] PreOp Case Times Entry 1 In Preop 05/01/18 05:38:00 Ready for Holding n/a Room Patient Ready for 05/01/18 07:00:00 Surgery Patient Out of Preop 05/01/18 07:21:00 Patient Out of n/a Holding Room Last Modified By: JUANY GARCIA RN 05/01/18 12:06:05 [facility] PreOp Case Times Audit 05/01/18 12:06:05 Coding Compliance Specialist: ELENA Modifier: SILVESTREAJITHJuan Pablo <+> 1 Patient Out of Preop Finalized By: JUANY GARCIA, RN Document Signatures Signed By: JUANY GARCIA RN 05/01/18 12:06 Electronically signed by Inocencio [facility] Conversion Nerve Specialist Cerner at 08/05/2022 11:28 PM CDT documented in this encounter Plan of Treatment Not on file documented as of this encounter Visit Diagnoses Not on filedocumented in this encounter
--- OUTSIDE RECORDS SUMMARY | 2025-04-05 08:10 | XMS_ITS | Clinical Summary ---
Author Organization [facility] Address [address] [place] [address] Care Team Providers Care Pulmonary Disease Specialist Name Role Phone Nikolas Maciel MD Primary [...] 12/25/1999 [facility]-Zoster Vaccines (1 of 2) 12/25/1999 [id number] Vaccine ( season) 2024 02/12/2024, 02/13/2023, 02/15/2022, Additional history exists [facility]-Influenza Vaccine (#1) 12/21/202402/11, 02/13/2023, 02/08/2022, Additional history exists [facility]-RSV Vaccine: 60+ Years or (1 - 1-dose 75+ series) 2024 Colonoscopy 09/29/2028 09/29/2018, 10/21/2013 [facility]-Colorectal Cancer Screening 09/29/2028 HPV Vaccines (No Doses Required) Completed [facility]-HIB Vaccines Aged Out No longer e [...] Health Maintenance Insurance MEDICARE [employer] Care Teams Pulmonary Disease Specialist Relationship Specialty Start Date End Date Nikolas Maciel MD [address] [place] [address] PCP - General 09/02/20
--- OUTSIDE RECORDS SUMMARY | 2025-04-05 08:10 | XMS_ITS | Encounter Summary ---
Author Organization [employer] ([place], [place], [place], [place], [place]) Address [address] [place] [address] Care Team Providers Care Hose Turner Name Role Phone Unavailable Primary Care Provider Unavailabl e Encounter Details Date Type Department Care Team (Late st Contact Info) Description 05/01/2018 Transcribed Document [facility] [place] Family Medicine [facility] [place] [address] ProviderCaroline MD [address] [place] [address] Social History Tobacco Use Types Packs/Day [...] Caroline Yang MD - 05/01/2018 9:07 AM SPRING SETTER [address] [place] [address] Patient Copy Patient Information: Name: ALDO LOPEZ Current Date: 05/01/2018 09:07:14 : 1950 Patient Address: [address] [place] [id number] Patient Attending Physician: NORA MACHUCA JR, MD-URO Primary Care Provider: JONAS, NOT LISTED Primary Care Provider Phone: Discharge Diagnosis: Weight on Admission: 231 lb, 13 oz Comment: Follow-up Instructions: With: Address: When: NORA MACHUCA JR [address] [place] [place] [address], [address] [place] [address] Business (1) Within 2 to 3 days [...] any): Final Medication List: Printed Prescriptions acetaminophen-hydrocodone (Glenwood 7.5 mg-325 mg oral tablet) 1 Tablet(s) [...] including vitamins, herbs, eye drops, creams, and srkg-qeh-augwaet medicines. ??? Any problems you or family [...] 04/08/2006 Document Revised: 12/09/2016 Document Reviewed: 12/29/2015 [employer] Interactive Patient Education ? 2017 [employer] General Anesthesia, Adult, Care After These [...] activities are safe for you. ??? Take hjqt-onr-buifauz and prescription medicines only as told by [...] 07/15/2001 Document Revised: 09/10/2016 Document Reviewed: 03/22/2016 [employer] Interactive Patient Education ? 2017 [employer]. Medication Leaflets: acetaminophen and hydrocodone (a SEET a MIN oh fen and nancy droe KOE done) Hycet, Lorcet, Glenwood, Verdrocet, Vicodin, Xodol, Zamicet What is the [...] may report side effects to FDA at 1-545-IVO-9422. What other drugs will affect acetaminophen and [...] affect acetaminophen and hydrocodone, including prescription and vmlp-oow-vhcyswf medicines, vitamins, and herbal products. Not all [...] to ensure that the information provided by [employer] ('[employer]') is accurate, up-to-date, and complete, but no guarantee is made to that effect. Drug information contained herein may be time sensitive. [employer] information has been compiled for use by healthcare practitioners and consumers in the [place] and therefore [employer] does not warrant that uses outside of the [place] are appropriate, unless specifically indicated otherwise. [employer]'s drug information does not endorse drugs, diagnose patients or recommend therapy. [employer] drug information is an informational resource designed [...] effective or appropriate for any given patient. [employer] does not assume any responsibility for any aspect of healthcare administered with the aid of information [employer] provides. The information contained herein is not intended to cover all possible uses, directions, precautions, warnings, drug interactions, allergic reactions, or adverse effects. If you have questions about the drugs you are taking, check with your doctor, nurse or pharmacist. Copyright 3055-3507 [employer] Version: 15.02. Revision Date: 02/24/2018. CIGARETTE SMOKING: The facts are clear, cigarette smoking will shorten your life. Smoking can cause many illnesses along the way. As a healthcare provider, we recommend that you stop smoking. Assistance with quitting is available by contacting 1-138-OKST-NOW. This is a free resource providing counseling, [...] Be sure to sign up for the [employer] patient portal, which gives you 12/11 access to your medical information ??? including these discharge instructions ??? using your computer, smartphone, or tablet. Just go to [employer] to get started. Questions? Call . [facility] would like to thank you for allowing us to assist you with your healthcare needs. JOHN Bond KENNETH RAY, (or petroleum products sales representative) have received the above patient education materials/instructions and have verbalized understanding: Patient Signature _ Date/Time Patient Farm Product Purchaser Signature (if needed) Date/Time Clinician/Hospital Farm Product Purchaser Signature (if needed) Date/Time Electronically signed by Inocencio, Izabella Conversion Computer Network Support Specialist Cerner at 08/05/2022 11:05 PM CDT documented in this encounter Plan of Treatment Not on file documented as of this encounter Visit Diagnoses Not on filedocumented in this encounter
--- OUTSIDE RECORDS SUMMARY | 2025-04-05 08:10 | XMS_ITS | Referral Summary ---
Author Organization [employer] ([place], [place], [place], [place], [place]) Address [address] [place] [address] Care Team Providers Care Pipe Out Worker Name Role Phone Unavailable Primary Care Provider [...]
--- OUTSIDE RECORDS SUMMARY | 2025-04-05 08:10 | XMS_ITS | Encounter Summary ---
Author Organization [employer] ([place], [place], [place], [place], [place]) Address [address] [place] [address] Care Team Providers Care Fabrication Machine Operator Name Role Phone Unavailable Primary Care Provider Unavailabl e Encounter Details Date Type Department Care Team (Late st Contact Info) Description 05/01/2018 Transcribed Document [facility] [place] Family Medicine [facility] [place] [address] ProviderCaroline MD [address] [place] [phone] Social History Tobacco Use Types Packs/Day Years [...] Caroline Yang MD - 05/01/2018 9:00 AM ADULT SECONDARY EDUCATION INSTRUCTOR Discharge Instructions Entered On: 05/01/2018 9:06 EST [...]
--- OUTSIDE RECORDS SUMMARY | 2025-04-05 08:10 | XMS_ITS | Encounter Summary ---
Author Organization [employer] ([place], [place], [place], [place], [place]) Address [address] [place] [address] Care Team Providers Care Oil Spraying Machine Operator Name Role Phone Unavailable Primary Care Provider Unavailabl e Encounter Details Date Type Department Care Team (Late st Contact Info) Description 04/30/2018 Transcribed Document [facility] [place] Family Medicine [facility] [place] [address] ProviderCaroline MD [address] [place] [address] Social History Tobacco Use Types [...] - Caroline ProviderMD - 04/30/2018 2:01 PM METAL REFINER PAT Adult Entered On: 04/30/2018 14:10 EST Performed On: 04/30/2018 14:01 EST by GONZALEZ CONDE RN Height and Weight, Clinical Dosing Height Source : Measured Height Entry Format : Humphreys Height, Feet : 0 ft(Converted to: 0 cm, 0 Inch) Height, Inches : 70 Inch(Converted to: 5 ft 10 Inch, 177.80 cm) Clinical Height : 177.8 cm Weight Source : Standing scale Weight Entry Format : Humphreys Clinical Dosing Weight : 105.36 kg Weight, Pounds : 231.8 lb Body Surface Area (BSA) : 2.22 m2 Body Mass Index : 33.3 kg/m2 (HI) [place] Body Weight : 72 kg JUANY GARCIA [...] Obtained From : Patient Primary Language : Japanese Communication Barrier : None Objects to Sharing [...]
--- OUTSIDE RECORDS SUMMARY | 2025-04-05 08:10 | XMS_ITS | Encounter Summary ---
Author Organization [employer] ([place], [place], [place], [place], [place]) Address [address] [place] [address] Care Team Providers Care Wet Pan Operator Name Role Phone Unavailable Primary Care Provider Unavailabl e Encounter Details Date Type Department Care Team (Late st Contact Info) Description 05/01/2018 Transcribed Document [facility] [place] Family Medicine [facility] [place] [address] ProviderCaroline MD [facility] [place] [address] Social History Tobacco Use Types [...] Caroline Yang MD - 05/01/2018 7:41 AM HAT LINER [facility] Main OR PACU Summary Primary Physician: NORA MACHUCA JR, MD-URO Finalized Date/Time: 05/01/18 09:10:02 Pt. Name: JOHN ALDOIris LABOY D.O.B./Sex: 1950 Male Med Rec #: [id number] Physician: NORA MACHUCA JR, MD-URO Financial #: [id number] Pt. Type: O Room/Bed: /1 Admit/Disch: 05/01/18 05:38:00 - Institution: [facility] Main OR PACU I Case Times Entry 1 In PACU I 05/01/18 08:17:00 Ready for PACU 05/01/18 09:50:00 Discharge Discharge from PACU 05/01/18 08:57:00 I Last Modified By: PANCHO ARZATE RN 05/01/18 09:09:08 [facility] Main OR PACU I Case Times Audit 05/01/18 09:09:08 Technician Trainee: ALVAROPETR Modifier: BRANDEP <+> 1 Ready for PACU Discharge <+> 1 Discharge from PACU I [facility] Main OR PACU Acuity Entry 1 Start Time 05/01/18 08:50:00 Stop Time 05/01/18 08:57:00 Acuity Level [facility] PACU Acuity I Last Modified By: PANCHO ARZATE RN 05/01/18 09:09:57 Finalized By: PANCHO ARZATE, RN Document Signatures Signed By: PANCHO ARZATE RN 05/01/18 09:10 Electronically signed by Inocencio [facility] Conversion Digital Account Executive Cerner at 08/05/2022 11:23 PM CDT documented in this encounter Plan of Treatment Not on file documented as of this encounter Visit Diagnoses Not on filedocumented in this encounter
--- OUTSIDE RECORDS SUMMARY | 2025-04-05 08:10 | XMS_ITS | Encounter Summary ---
Author Organization [employer] ([place], [place], [place], [place], [place]) Address [address] [place] [address] Care Team Providers Care Cooking Appliance Repair Technician Name Role Phone Unavailable Primary Care Provider Unavailabl e Encounter Details Date Type Department Care Team (Late st Contact Info) Description 05/01/2018 Transcribed Document [facility] [place] [facility] [place] [address] ProviderCaroline MD [address] [place] [address] Social History Tobacco Use Types Packs/Day [...] Caroline Yang MD - 05/01/2018 8:59 AM BAKERY MACHINE MECHANIC Nursing Discharge Summary Entered On: 05/01/2018 9:00 [...] 05/01/2018 8:59 EST Electronically signed by Inocencio [facility] Conversion Internet Network Specialist Cerner at 08/05/2022 11:13 PM CDT documented in this encounter Plan of Treatment Not on file documented as of this encounter Visit Diagnoses Not on filedocumented in this encounter
--- OUTSIDE RECORDS SUMMARY | 2025-04-05 08:10 | XMS_ITS | Clinical Summary ---
Author Organization [facility] Address [address] [place] [address] Care Team Providers Care Fountain Jerk Name Role Phone Tavares Johnston MD Primary Care Provider [phone] Allergies No known active allergies Medications carvedilol [...] of 2) 12/25/1999 INFLUENZA VACCINE (#1) 2024 CT Colonography Completed HEP A VACCINE Aged Out No longer [...] ID:[id number] (NAIC) Type:Not on file Address: [address] [place] [id number] [employer] ACCESS Care Teams Fountain Jerk Relationship Specialty Start Date End Date Tavares Johnston MD [address] [place] [address] PCP - General Family Medicine 05/22/11
--- OUTSIDE RECORDS SUMMARY | 2025-04-05 08:10 | XMS_ITS | Encounter Summary ---
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 ??? Any problems you or family [...] 04/08/2006 Document Revised: 12/09/2016 Document Reviewed: 12/29/2015 [employer] Interactive Patient Education ? 2017 [employer] Pharmacology General Anesthesia, Adult, Care After [...] activities are safe for you. ??? Take uifj-tjl-vuhwecb and prescription medicines only as told by [...]
--- OUTSIDE RECORDS SUMMARY | 2025-04-05 08:10 | XMS_ITS | Clinical Summary ---
Author Organization [employer] ([place], [place], [place], [place], [place]) Address [address] [place] [address] Care Team Providers Care Assignment Manager Name Role Phone Unavailable Primary Care [...]
--- OUTSIDE RECORDS SUMMARY | 2025-04-05 08:10 | XMS_ITS | Clinical Summary ---
Author Organization [facility] Address [address] [place] [id number] Care Team Providers Care Volcanologist Name Role Phone Nikolas Maciel MD Primary [...] Moviprep. Follow instructions provided by Office. Call [phone] with questions. 354 mL 4 Active Social [...] ZOSTER VACCINE (1 of 2) 12/25/1999 ANNUAL PHYSICAL 02/25/2024 HEPATITIS C SCREENING 02/25/2024 INFLUENZA VACCINE [...] Payer (Ef fective 2014-Present) Name:Aldo Wills Member ID:[id number] Relation to Subscriber:Self Name:Aldo Wills Subscriber ID:[id number] Payer ID:[id number] Group ID:Not on file Type:Not on file Address: [address] [employer] Care Teams Volcanologist Relationship Specialty Start Date End Date Nikolas Maciel MD [address] [place] [address] PCP - General Family Medicine 05/08/16
--- OUTSIDE RECORDS SUMMARY | 2025-04-05 08:10 | XMS_ITS | Encounter Summary ---
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 Name: JOHNYOIris LABOY D.O.B./Sex: 1950 Male Med Rec #: [id number] Physician: NORA MACHUCA JR, MD-URO Financial #: [id number] Pt. Type: O Room/Bed: /1 Admit/Disch: 05/01/18 05:38:00 - Institution: [facility] Main OR PostOp Case Times Entry 1 In PACU II 05/01/18 09:08:00 Ready for PACU II 05/01/18 10:03:00 Discharge Discharge from PACU 05/01/18 10:03:00 II Last Modified By: ROYCE LEACH RN 05/01/18 10:11:52 Finalized By: ROYCE LEACH RN Document Signatures Signed By: ROYCE LEACH RN 05/01/18 10:11 Electronically signed by Inocencio [facility] Conversion Director Digital Strategy Cerner at 08/05/2022 11:07 PM CDT documented in this encounter Plan of Treatment Not on file documented as of this encounter Visit Diagnoses Not on filedocumented in this encounter
[2025-04-05] MEDS: SODIUM CHLORIDE 0.9% 10ML SYR (RAD ONLY) 10 ML IV (08:22)
[2025-04-05] MEDS: IOPAMIDOL-370 (76%);100ML BOTTLE 75 ML IV (08:22)
--- NOTE | 2025-04-05 08:45 | CT_ITS ---
FINAL REPORT TECHNIQUE: Pre-and postcontrast axial CT images of the abdomen and pelvis were obtained. Coronal reformatted images were also obtained and reviewed.This study was performed with techniques to keep radiation doses as low as reasonably achievable (ALARA). Individualized dose reduction techniques using automated exposure control or adjustment of mA and/or kV according to the patient''''s size were employed. CLINICAL HISTORY: kidney mass COMPARISON: 03/16/2025 FINDINGS: CT OF THE ABDOMEN AND PELVIS WITH AND WITHOUT CONTRAST Abdomen: The lung bases are clear. The heart is normal in size. The liver has an unremarkable appearance, without evidence of mass or biliary ductal dilatation.The gallbladder is present. The spleen is unremarkable. No adrenal mass is present. The pancreas has an unremarkable appearance. There is a low-attenuation lesion in the superior right kidney which is unchanged measuring 1.9 x 1.5 cm. On preinfusion imaging this measures 29 Hounsfield units, 50 Hounsfield units on postcontrast imaging and 42 Hounsfield units on delayed imaging. This is indeterminate but favored to represent complex, benign cyst. No renal stones are seen on precontrast imaging. The aorta is normal in caliber. There is no free fluid or adenopathy. Pelvis: The appendix normal. There is moderate stool throughout the colon. The urinary bladder is decompressed. Prostate is enlarged measuring up to 5.6 cm. There is no evidence of mass or adenopathy. There is no evidence of bowel obstruction. Precontrast imaging demonstrates no evidence of nephrolithiasis. IMPRESSION: No evidence of acute intra-abdominal process. Reviewed, Interpreted and Dictated by Portillo Lange MD Transcribed by Amna Rodrigez Authenticated and . [facility]
== END 2025-04-05 23:59 | disposition home or self-care (01) ==
LOC: RAD 08:07
PROVIDERS: PCP Nurse Practitioner Family; Visit Provider Internal Medicine
DX: E27.8 Other specified disorders of adrenal gland (principal); N28.89 Other specified disorders of kidney and ureter
CPT/HCPCS: 74178; Q9967